=== PATIENT | male | born 1935 | race Hispanic/Latino ===

== ENCOUNTER 2016-12-11 15:21 | Inpatient (IN) | payer MEDICARE, MEDICAID, OTHER ==
[2016-12-11 15:39] VITALS: BMI 31.6
[2016-12-11 15:44] LABS: ADD MANUAL DIFF? NO
--- NOTE | 2016-12-11 15:54 | ED PDOC ---
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 Patient states for the past few weeks he has been feeling "not right." Patient was supposed to be on Eliquis for CAF however, had trouble affording it and has not been on it x2 weeks. Patient denies CP, SOB at rest, abd pain, n/v, fevers, chills, edema, rashes, headache, dizziness, confusion, palpitations. (Chichi Miller) Past Medical History - Provider Review Nursing Documentation Reviewed: Yes - Travel History Have you recently traveled outside [place] w/in the past 3 mons?: No - Infectious Disease Hx of Infectious Diseases: None - Cardiac Hx Cardiac Disorders: Yes Hx Hypertension: Yes Hx Pacemaker: No - Pulmonary Hx Respiratory Disorders: Yes Hx Lung Cancer: Yes - Neurological Hx Neurological Disorder: No Hx Paralysis: No - HEENT Hx HEENT Disorder: Yes Other/Comment: [place]-SPARKS WEARS B/L HEARING AIDS, WEARS EYEGLASSES (READING) - Renal Hx Renal Disorder: No - Endocrine/Metabolic Hx Endocrine Disorders: No - Hematological/Oncological Hx Blood Disorders: Yes Hx Blood Transfusions: No Hx Blood Transfusion Reaction: No Hx Cancer: Yes Hx Chemotherapy: Yes - Integumentary Hx Dermatological Disorder: No - Musculoskeletal/Rheumatological Hx Musculoskeletal Disorders: No - Gastrointestinal Hx Gastrointestinal Disorders: Yes (adenocarcinoma of the colon) - Genitourinary/Gynecological Hx Genitourinary Disorders: Yes Hx Prostate Problems: Yes (HX OF PROSTATE CA (RADIATION PROSTATE SEEDS)) - Psychiatric Hx Psychophysiologic Disorder: No Hx Anxiety: No Hx Emotional Abuse: No Hx Physical Abuse: No Hx Substance Use: No - Surgical History Other/Comment: L HEMICOLECTOMY (COLOSTOMY IN PLACE) - Anesthesia Hx Anesthesia Reactions: No Hx Malignant Hyperthermia: No - Suicidal Assessment Feels Threatened In Home Enviroment: No <Chichi Miller - Last Filed: 12/11/16 17:07> Family/Social History - Physician Review Nursing Documentation Reviewed: Yes Family/Social History: Hypertension, CAD/VT Smoking Status: Former Smoker Hx Alcohol Use: No Hx Substance Use: No <Chichi Miller - Last Filed: 12/11/16 17:07> Allergies/Home Meds <Price Jeffrey DO - Last Filed: 12/11/16 16:40> <Chichi Miller - Last Filed: 12/11/16 17:07> Allergies/Adverse Reactions: Allergies No Known Allergies Allergy (Verified 12/11/16 15:30) Home Medications: Home Meds Medication Instructions Recorded Confirmed Amlodipine Besylate [Norvasc] 10 mg PO DAILY 03/27/16 12/11/16 Hydrochlorothiazide 12.5 mg PO DAILY 03/27/16 12/11/16 Lisinopril [Zestril] 40 mg PO DAILY 03/27/16 12/11/16 Metoprolol Tartrate [Lopressor] 100 mg PO BID 03/27/16 12/11/16 Cefpodoxime [Vantin] 200 mg PO BID 12/07/16 12/07/16 Review of Systems - Physician Review All systems were reviewed & negative as marked: Yes - Review of Systems Constitutional: Normal, Fatigue. absent: Fevers Eyes: Normal, Vision Changes ENT: Normal Respiratory: Normal, SOB. absent: Cough, Sputum, Wheezing Cardiovascular: MULLER. absent: Chest Pain, Palpitations Gastrointestinal: Normal. absent: Abdominal Pain, Constipation, Diarrhea (does pass small amount of stool, slight loose stool 1 week ago, no diarrhea), Nausea , Vomiting, Hematochezia, Hematemesis Genitourinary Male: absent: Dysuria, Frequency Musculoskeletal: absent: Back Pain, Neck Pain Skin: absent: Rash, Laceration Neurological: absent: Headache, Dizziness Endocrine: absent: Diaphoresis, Polyuria, Polydipsia Hemo/Lymphatic: Normal. absent: Adenopathy <Chichi Miller - Last Filed: 12/11/16 17:07> Physical Exam Vital Signs Reviewed: Yes Temperature: Afebrile Blood Pressure: Normal Pulse: Tachycardic (irreg irreg) Respiratory Rate: Normal Appearance: Positive for: Well-Appearing, Non-Toxic, Comfortable Pain Distress: None Mental Status: Positive for: Alert and Oriented X 3 - Systems Exam Head: Present: Atraumatic, Normocephalic Pupils: Present: PERRL Extroacular Muscles: Present: EOMI Conjunctiva: Present: Normal. No: Icteric Mouth: Present: Moist Mucous Membranes Neck: Present: Normal Range of Motion. No: Meningeal Signs, JVD Respiratory/Chest: Present: Decreased Breath Sounds. No: Respiratory Distress, Accessory Muscle Use Cardiovascular: Present: Irregular Rhythm, Tachycardic Abdomen: Present: Normal Bowel Sounds, Other (LLQ colostomy, stoma clean, no erythema). No: Tenderness, Distention, Peritoneal Signs Upper Extremity: Present: Normal Inspection. No: Cyanosis, Edema Lower Extremity: Present: Normal Inspection. No: Edema, CALF TENDERNESS Neurological: Present: GCS=15, CN II-XII Intact, Speech Normal Skin: Present: Warm, Dry, Normal Color. No: Rashes Psychiatric: Present: Alert, Oriented x 3, Normal Insight, Normal Concentration <Chichi Miller - Last Filed: 12/11/16 17:07> Vital Signs Temp Pulse Resp BP Pulse Ox 12/11/16 15:31 20 12/11/16 15:28 98.9 F 133 H 18 120/83 94 L Medical Decision Making <Price Jeffrey DO - Last Filed: 12/11/16 16:40> Re-evaluation Time: 15:53 Reassessment Condition: Re-examined, Unchanged - EKG Interpretation Interpreted by ED Physician: Yes Type: 12 lead EKG Comparison: Similar to previous EKG <Chichi Miller - Last Filed: 12/11/16 17:07> ED Course and Treatment: A 81 year old male with dyspnea on exertion. Patient notes lethargy and a decrease in appetite. In agreement with resident note, which includes further HPI details. Patient was seen and evaluated with resident, came up with plan and treatment together. (Price Jeffrey DO) 12/11/16 16:00 Dr. Coley spoke with Dr. Jeffrey regarding incoming patient, SOBx4 weeks , h/o mets colon CA. 12/11/16 16:07 81 yo M w h/o metastatic colon CA, CAF, PAD presents with 4 week h/o lethargy, MULLER. Labs, CXR, EKG. Patient found to be in afib RVR on EKG in ER. Given 20mg IV Cardizem. 12/11/16 16:19 HR still 120s, will give another 20 mg IV Cardizem. If does not break a fib, will start cardizem drip. 12/11/16 16:51 HR still in 120s, will start Cardizem drip. Dr. Ekaterina Martinez, PMD, paged for admission. (Chichi Miller) - Lab Interpretations Lab Results: 12/11/16 15:30 12/11/16 15:30 Lab Results 12/11/16 15:30: Sodium 131 L, Potassium 4.1, Chloride 95 L, Carbon Dioxide 25, Anion Gap 15, BUN 16, Creatinine 0.8, Est GFR ( Amer) > 60, Est GFR (Non- Af Amer) > 60, Random Glucose 127 H, Calcium 8.7, Magnesium 1.7, Total Bilirubin 3.1 H, AST 140 H, ALT 40, Alkaline Phosphatase 582 H, Lactate Dehydrogenase 1732 H, Total Creatine Kinase 139, Troponin I 0.02, NT-Pro-B Natriuret Pep 3870 H, Total Protein 6.6, Albumin 3.0, Globulin 3.6, Albumin/ Globulin Ratio 0.8 L 12/11/16 15:30: WBC 21.0 H D, RBC 4.65, Hgb 11.8 L, Hct 36.2 L, MCV 77.8 L, MCH 25.4, MCHC 32.6, RDW 18.9 H, Plt Count 556 H, MPV 9.6, Gran % 70.6 H, Lymph % ( Auto) 15.7 L, Morrill % (Auto) 13.5 H, Eos % (Auto) 0.0 L, Baso % (Auto) 0.2, Gran # 14.84 H, Lymph # 3.3, Morrill # 2.8 H, Eos # 0.0, Baso # 0.04 - RAD Interpretation Radiology Orders: 12/11/16 15:32 CHEST PORTABLE [RAD] Stat - EKG Interpretation EKG Interpretation (Text): 12/11/16 17:06 A fib RVR Rate 151bpm, non specific ST/T wave changes (Chichi Miller) - Medication Orders Current Medication Orders: Enoxaparin Sodium (Lovenox) 40 mg SC DAILY KRIS PRN Reason: Protocol diltiaZEM IVPB 100mg in NS (Cardizem 100mg In Ns) 100 mls @ 5 mls/hr IV .Q20H PRN; Protocol; 5 MG/HR PRN Reason: TITRATE PER MD ORDER Discontinued Medications Diltiazem HCl (Cardizem) 20 mg IVP STAT STA Stop: 12/11/16 15:35 Last Admin: 12/11/16 15:42 Dose: 20 mg Diltiazem HCl (Cardizem) 20 mg IVP STAT STA Stop: 12/11/16 16:16 Last Admin: 12/11/16 16:23 Dose: 20 mg Furosemide (Lasix) 40 mg IVP STAT STA Stop: 12/11/16 16:55 - PA / AWNING FRAME MAKER / Resident Statement HUDSON has reviewed & agrees with the documentation as recorded. / has examined the patient and agrees with the treatment plan. - Scribe Statement The provider has reviewed the documentation as recorded by the Scribe <Price Jeffrey DO - Last Filed: 12/11/16 16:40> - PA / AWNING FRAME MAKER / Resident Statement HUDSON has reviewed & agrees with the documentation as recorded. HUDSON has examined the patient and agrees with the treatment plan. <Chichi Miller - Last Filed: 12/11/16 17:07> - Scribe Statement Katya Patel Provider Scribe Attestation: All medical record entries made by the Scribe were at my direction and personally dictated by me. I have reviewed the chart and agree that the record accurately reflects my personal performance of the history, physical exam, medical decision making, and the department course for this patient. I have also personally directed, reviewed, and agree with the discharge instructions and disposition. (Price Jeffrey DO) Disposition/Present on Arrival <Price Jeffrey DO - Last Filed: 12/11/16 16:40> - Present on Arrival Any Indicators Present on Arrival: No History of DVT/PE: No History of Uncontrolled Diabetes: No Urinary Catheter: No History of Decub. Ulcer: No History Surgical Site Infection Following: None - Disposition Have Diagnosis and Disposition been Completed?: Yes Disposition Time: 16:54 Patient Plan: Admission <Chichi Miller - Last Filed: 12/11/16 17:07> - Disposition Diagnosis: Atrial fibrillation with RVR, Pleural effusion Disposition: HOSPITALIZED Condition: FAIR Referrals: Noemi MACHUCA,Ghanshyam Prado MD [Primary Care Provider] - Follow up with primary
[2016-12-11 16:07] LABS: ALB/GLOB RATIO 0.8 (1.1-1.8); ALKALINE PHOSPHATASE 582 U/L (38-133); ALT/SGPT 40 U/L (7-56); AST/SGOT 140 U/L (15-59); BILIRUBIN,TOTAL 3.1 mg/dL (0.2-1.3); BLOOD UREA NITROGEN 16 mg/dL (7-21); CALCIUM 8.7 mg/dL (8.4-10.5); CARBON DIOXIDE 25 mmol/L (21-33); CHLORIDE 95 mmol/L (98-107); GFR AFRICAN-AMERICAN > 60; GLUCOSE,RANDOM 127 mg/dL (70-110); MAGNESIUM 1.7 mg/dL (1.7-2.2); POTASSIUM 4.1 mmol/L (3.6-5.0); SODIUM 131 mmol/L (132-148); TOTAL PROTEIN 6.6 g/dL (5.8-8.3)
[2016-12-11 16:18] LABS: TROPONIN I 0.02 ng/mL
[2016-12-11 16:36] LABS: BASO # 0.04 K/mm3 (0.0-2.0); BASO % 0.2 % (0.0-3.0); GRAN # 14.84 (1.4-6.5); GRAN % 70.6 % (50.0-68.0); HEMATOCRIT 36.2 % (42.0-52.0); LYMPH # 3.3 (1.2-3.4); LYMPH % 15.7 % (22.0-35.0); MEAN CELL VOLUME 77.8 fL (80.0-105.0); MEAN CORPUSCULAR HEMOGLOBIN 25.4 pg (25.0-35.0); MEAN CORPUSCULAR HGB CONC 32.6 g/dl (31.0-37.0); MEAN PLATELET VOLUME 9.6 fl (7.0-11.0); MONO # 2.8 (0.1-0.6); MONO % 13.5 % (1.0-6.0); PLATELET COUNT 556 10^3/uL (120.0-450.0); RED CELL DISTRIBUTION WIDTH 18.9 % (11.5-14.5)
[2016-12-11] MEDS: diltiaZEM IVPB 100mg in NS 100 ML IV PRN (17:11)
--- NOTE | 2016-12-11 17:45 | CON ---
DATE: 12/11/2016 This is the patient's hospital consult. For Dr. Levin. CHIEF COMPLAINT: Shortness of breath. HISTORY OF PRESENT ILLNESS: The patient is an 81-year-old male who sees Dr. Levin for metastatic c ancer of the colon to the liver and lung, with the patient being treated in the outpatient clinic for his disease process with the patient reporting not feeling well for approximately the past 2 months with flu-like symptoms, for which he was treated with antibiotics by his primary doctor, with little effect. He reports more recently he is now getting increasing shortness of breath so that he cannot walk approximately 40 feet without having to stop due to weakness and inability to catch his breath. Upon outpatient testing in Dr. Levin's office on 12/08, a CT scan of the chest, abdomen, and pelvi s was done, which was reported as showing moderate right-sided pleural effusion with bibasilar infilt rates with the patient now reporting that the breathing has gotten worse. We will admit under his pr imary, Dr. Franklin to the hospital for treatment as indicated. It also should be noted that the pa keyona was to be on Eliquis for his atrial fibrillation; however, he was unable to afford it with the [facility] to have sent him medication gratis; however, he has not taken the medici ne for approximately 2 weeks' time and is waiting for it to come. ALLERGIES: No known allergies. MEDICATIONS: For this patient include lisinopril 40 mg once a day, hydrochlorothiazide 12.5 once a d ay, Norvasc 10 mg once a day, Lopressor 100 mg twice a day, and Eliquis, which he ran out of, with emotherapy in the outpatient clinic as per Dr. Levin's protocols. 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 Castellano. 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 Hugh Verduzco, significant for hypertension. Status post CA of the prostate. Also, decr eased hearing. FAMILY HISTORY AND SOCIAL HISTORY: The patient is a former smoker, approximately 30 years, quit in . Occasional alcohol use. He is retired. Otherwise, noncontributory. REVIEW OF SYSTEMS: Essentially negative to questioning except as above. PHYSICAL EXAMINATION: VITAL SIGNS: Temperature 99, pulse 133, respirations 20, blood pressure 120/83, with a pulse ox 94%. HEENT: Unremarkable. NECK: Supple. HEART: Tachy rate, irregular/irregular. LUNGS: Decreased breath sounds on the right, faint crackles at the bases. ABDOMEN: Positive viable colostomy. Minimally distended. Questionable ascites. EXTREMITIES: +1 edema bilaterally. NEUROLOGIC: Awake, alert, and oriented. SKIN: Otherwise, warm, dry, and clear. LABORATORY DATA: The patient's labs were done. White blood cell count of 21.0 thousand; hemoglobin 11.8; hematocrit 36.2; platelet count 556,000; with a chem metabolic panel showing a sodium of 131, c hloride of 95, T-bili of 3.1, AST of 140, alk phos of 582, LDH of 1732, B-natriuretic peptide at 3870 . DIAGNOSTIC DATA: The patient had a chest x-ray done. It is not read yet. The patient did have a CT scan of the chest, abdomen, and pelvis done on 12/08/2016. One is recommen ded to go to select visits as this was done approximately 3 days prior. Impression was that of cardi omegaly, dense coronary and valvular calcifications, small pericardial effusion, moderate right-sided pleural effusion, bibasilar infiltrates, 1.3 x 2.2 subpleural right upper lobe nodule, nodular hepat ic contour, hepatomegaly, low attenuation lesions adequately assessed, a 6.9 cm left upper pole proba ble renal cyst, 7 mm indeterminate low density nodule right adrenal gland, abdominal ascites predomin antly perihepatic and perisplenic, small pelvic ascites, left lower quadrant colostomy. The patient did have a PET-CT scan done earlier this year, 08/18/2016. The findings were that of red emonstration of pleural-based nodule at the right upper lobe, demonstrates increased FDG uptake witho ut significant interval change since previous exam findings. They may represent metastases versus l ess likely primary lung neoplasm, interval worsening of liver metastases compared with previous study , multiple mass lesions in the liver demonstrate increased FDG uptake consistent with liver mets from patient's known colon cancer. Stable, slow attenuation nodule of the right adrenal gland without in creased FDG uptake, likely represents a benign adenoma. He had a head CT done on 10/03/2016. It was read as large amount of artifact, hemorrhage not favored , no suspicious abnormality. ASSESSMENT: For this patient is that of shortness of breath, pleural effusion, basilar infiltrates, ascites, stage IV cancer of the colon, metastases to liver and lung, colostomy, severe peripheral vas cular disease, status post stenting, hypertension. PLAN: For this patient is to be admitted via the Emergency Room as per his primary doctor, with foll owup for thoracentesis/paracentesis as indicated, with further testing to be done as indicated. IV d iltiazem was given. We will ask for a consult with his outreach manager, as per his primary, Dr. Angelo carrasco, with the patient to be monitored clinically and with labs. Kt Barbour MD cc: [phone] TT: 12/11/2016 17:45:17 Confirmation # [id number] Dictation # [id number] dn
[2016-12-11 18:02] LABS: URINE BILIRUBIN SMALL (NEGATIVE); URINE BLOOD NEGATIVE (NEGATIVE); URINE GLUCOSE (UA) NEGATIVE (NEGATIVE); URINE KETONE NEGATIVE (NEGATIVE); URINE LEUKOCYTE ESTERASE NEGATIVE Leu/uL (NEGATIVE); URINE PROTEIN TRACE mg/dL (<30 mg/dL)
[2016-12-11 18:06] LABS: URINE APPEARANCE SL CLOUDY (CLEAR); URINE COLOR YELLOW (YELLOW)
[2016-12-11] MEDS ORDERED: Metoprolol 1 mg/ml Inj IVP STA (18:07)
[2016-12-11 18:51] LABS: URINE EPITHELIAL CELLS 0 - 2 /hpf (0-5); URINE RBC 0 - 2 /hpf (0-2); URINE WBC 0 - 2 /hpf (0-6)
[2016-12-11 18:52] LABS: URINE BACTERIA SMALL (NEG)
[2016-12-11] MEDS ORDERED: Piperacillin/Tazobact 3.375 gm 100 ML IVPB STA (19:35)
[2016-12-11] MEDS ORDERED: Vancomycin 1gm in NS 250ml 1 GM/250 ML BAG IVPB STA (19:35)
--- NOTE | 2016-12-11 21:46 | CON ---
DATE: 12/11/2016 SERVICE: Cardiology. REASON FOR CONSULTATION: Cardiac evaluation, new onset atrial fibrillation. BRIEF CLINICAL HISTORY: An 81-year-old male with past medical history significant for hypertension, colon cancer on chemo, found to be in afib, so patient was transferred to ER for assessment. Cardiac consult was called for atrial fibrillation. When looking back patient has a history of atrial fibri llation back to 10/03/2016. The patient denies any chest pain. History of hypertension, hyperlipidem ia, colon cancer. PAST MEDICAL HISTORY: Significant for possible atrial fibrillation, very sketchy history, history of colon cancer, history of echocardiography 05/22/2016 that showed ejection fraction 55%. No definite vegetation noted at that time, borderline prolapse of the mitral valve noted, ____ at that time was noted, but no definite vegetation noted, dated 05/22/2016. SOCIAL HISTORY: Denies smoking. Denies any history of alcohol abuse. CURRENT MEDICATIONS: The patient is taking at home metoprolol 100 mg daily, lisinopril 40, hydrochlo rothiazide 12.5, Eliquis 5 mg twice, amlodipine 10 mg daily. REVIEW OF SYSTEMS: As per HPI. EKG shows afib with rapid ventricular rate. Rest of review of syste ms is as per HPI. PHYSICAL EXAMINATION: VITAL SIGNS: Temperature afebrile, heart rate 120, blood pressure 147/99. HEENT: PERRLA. Extraocular muscles intact. NECK: Supple. No carotid bruits. No thyromegaly. CHEST: Clear to auscultation. HEART: S1, S2 regular. ABDOMEN: Soft. EXTREMITIES: Clubbing and cyanosis negative. LABORATORY DATA: Blood workup as follows: WBC 21, hemoglobin 11.8, hematocrit 36.2, platelet count 556. Sodium 131, potassium 4.0, chloride 95, carbon dioxide 25, ____ of 15, creatinine 0.8. BNP 387 0. EKG shows atrial fibrillation, when looking back previous EKG in September the patient was in afib , dated 10/03/2016. Prior to that, the patient is in normal sinus. So possibly afib since September r ight bundle branch block, colon cancer, preserved LV function, now afib with rapid ventricular rate. RECOMMENDATION: Start Cardizem. Will start beta madhu, start Eliquis. Further recommendation per hospital course. We will follow with you. Thank you, Dr. Franklin, for providing the opportunity in taking care of the patient. Constantine Red MD cc: [phone] TT: 12/11/2016 21:45:59 Confirmation # [id number] Dictation # [id number] jn
[2016-12-11] MEDS ORDERED: Pneumococcal 23-Valent Vaccine IM ONE (22:07)
--- NOTE | 2016-12-11 22:13 | CON ---
DATE: 12/11/2016 The patient is seen in room 270, bed 1. CHIEF COMPLAINT: Weakness times several days. HISTORY OF PRESENT ILLNESS: This is an 81-year-old male with history of colon cancer with liver and lung metastases, hypertension, history of prostate cancer. In 05/2016, the patient had sensitive Sta ph aureus bacteremia, which was contributed secondary to a Port-A-Cath which was taken out. He also has peripheral vascular disease. He was also discovered to have syphilis which was treated and hard of hearing and with a hearing aid. On this admission, now admitted with the diagnosis of weakness. The patient had been coughing worse than usual and he has had low grade fevers and occasional chills. No chest pain. There is mild cough, nonproductive. No abdominal pain, diarrhea or constipation. No bright red blood per rectum. No dysuria or frequency. PAST MEDICAL HISTORY: Significant for colon cancer with liver and lung metastases, hypertension, pro state cancer, sensitive Staph aureus bacteremia secondary to Port-A-Cath, syphilis and peripheral vas cular disease. PAST SURGICAL HISTORY: Significant for a Port-A-Cath removal and a colostomy which he still has. ALLERGIES: The patient has no known allergies. MEDICATIONS AT HOME: Include the patient to be on Eliquis, Lopressor, Zestril and hydrochlorothiazid e. PHYSICAL EXAMINATION: GENERAL: The patient is in bed, answering questions appropriately. VITAL SIGNS: Temperature of 98, heart rate of 114, respiratory rate of 20, blood pressure is 130/80. HEENT: Unremarkable. NECK: Supple. LUNGS: Have decreased breath sounds. HEART: Normal S1, S2. ABDOMEN: Soft, nontender. LABORATORY EXAMINATION: Reveals a white count of 21,000, hemoglobin 11, platelets of 556 and 70% gra nulocytosis, 15% lymphocytosis, 13% monocytosis. Chemistries reveal that the patient has a BUN of 16 , creatinine of 0.8 and AST of 140, ALT of 45, alk phos is 582. LDH of 1732. BNP of 3870. Procalci tonin is 2.09. Sodium is 131. Negative urinalysis. Microbiology is reviewed from the past. He has had sensitive Staph aureus bacteremia in the past and chest x-ray results are not available. ASSESSMENT AND PLAN: This is an 81-year-old male with colon cancer, liver and lung metastases, hyper tension, history of sensitive Staphylococcus aureus bacteremia secondary to Port-A-Cath, syphilis, pe ripheral vascular disease, and Port-A-Cath removal and colostomy, who is now admitted with weakness, white count of 21,000 and heart rate of 114. 1. Sepsis with probable right lower lobe healthcare-associated probable Gram-positive cocci versus G noel-negative renato with pneumonia, with an elevated procalcitonin in a patient with end-stage colon can cer with liver and lung metastases. We will treat the patient with meropenem and doxycycline pending blood culture, urine culture and sputum culture. We will also order an ultrasound of the lower extr emities and D-dimer, and will make further recommendations upon availability of initial results. We will follow closely with you. Bin Castellano MD cc: [phone] TT: 12/11/2016 22:13:25 Confirmation # [id number] Dictation # [id number] mn
[2016-12-11] MEDS: Meropenem 1g/NS 100mL IVPB 1 GM/100 ML PIGGYBACK IVPB SCH (22:16)
[2016-12-11 23:21] LABS: ARTERIAL BLOOD GAS HCO3 23.7 mmol/L (21-28); ARTERIAL BLOOD GAS O2 CAPACITY 15.1 mL/dl (16-24); ARTERIAL BLOOD GAS PH 7.52 (7.35-7.45); ARTERIAL BLOOD HGB O2 SAT 89.7 % (95.0-98.0); CARBOXYHEMOGLOBIN 2.7 % (0.5-1.5); HHB 6.8 % (0-5); METHEMOGLOBIN 0.8 % (0.0-3.0)
--- NOTE | 2016-12-12 00:42 | CP.PCM.PN ---
Subjective - Date & Time of Evaluation Date of Evaluation: 12/11/16 Time of Evaluation: 21:00 - Subjective Subjective: called by nurse prt has afib with rapid vent rate. pt also has elevated wbc . and has been seen by dr kay and pt has received lopressor and is on cardiazem drip at 5 mg . pt denies complaints but apears sob..pt has hx of colon ca and liver and lung mets. Objective - Vital Signs/Intake and Output Vital Signs (last 24 hours): Temp Pulse Resp BP Pulse Ox 98.9 F 130 H 20 158/67 H 95 12/11/16 21:48 12/11/16 21:48 12/11/16 21:48 12/11/16 21:48 12/11/16 19:20 - Medications Medications: Current Medications Apixaban (Eliquis) 5 mg PO BID KRIS PRN Reason: Protocol Doxycycline Hyclate (Doryx) 100 mg PO Q12 KRIS PRN Reason: Protocol Stop: 12/25/16 22:01 Last Admin: 12/11/16 21:44 Dose: 100 mg diltiaZEM IVPB 100mg in NS (Cardizem 100mg In Ns) 100 mls @ 5 mls/hr IV .Q20H PRN; Protocol; 5 MG/HR PRN Reason: TITRATE PER MD ORDER Last Titration: 12/11/16 23:17 Dose: 10 mg/hr, 10 mls/hr Meropenem 1g/NS 100mL IVPB (Meropenem 1g/Ns 100ml Ivpb) 1 gm in 100 mls @ 100 mls/hr IVPB Q8 KRIS PRN Reason: Protocol Stop: 12/25/16 22:01 Last Admin: 12/11/16 22:16 Dose: 100 mls/hr Metoprolol Tartrate (Lopressor) 100 mg PO BID KRIS - Constitutional Appears: No Acute Distress - Head Exam Head Exam: NORMOCEPHALIC - Eye Exam Eye Exam: Normal appearance Pupil Exam: PERRL - ENT Exam ENT Exam: Mucous Membranes Moist - Neck Exam Neck Exam: Full ROM - Respiratory Exam Respiratory Exam: Clear to Ausculation Bilateral - Cardiovascular Exam Cardiovascular Exam: RRR, +S1, +S2 - Rectal Exam Rectal Exam: Deferred - Extremities Exam Extremities Exam: Full ROM - Neurological Exam Neurological Exam: Awake, CN II-XII Intact, Oriented x3 - Skin Skin Exam: Dry, Warm Assessment and Plan - Assessment and Plan (Free Text) Assessment: a-fib with rapid vent rate, /sepsis.. hx of colon ca with liver and lung mets. sob/rt lower lobe infitrate./pleural effusion hypoxia. Plan: will give cardiazem 10 mg bolous and increase the drip to 10 mg. will get abg stat. abg shows respiratory alkalosis and hypoxia. pt was placed on 100%o2 lasix 40mg x1 and ct angio done.
[2016-12-12] MEDS ORDERED: Iodixanol 320 MG/ML 100 ML BOTTLE IV ONE (01:48)
[2016-12-12] MEDS ORDERED: Metoprolol 1 mg/ml Inj IVP STA (03:23)
[2016-12-12] MEDS: diltiaZEM IVPB 100mg in NS 100 ML IV PRN (03:34)
--- NOTE | 2016-12-12 03:53 | CT ---
EXAM: CT Angiography Chest With Intravenous Contrast CLINICAL HISTORY: 81 years old, male; Signs and symptoms; Shortness of breath; Additional info: SOB /hypoxia TECHNIQUE: Axial computed tomographic angiography images of the chest with intravenous contrast using pulmonary embolism protocol. This CT exam was performed using one or more of the following dose reduction techniques: automated exposure control, adjustment of the mA and/or kV according to patient size, and/or use of iterative reconstruction technique. MIP reconstructed images were created and reviewed. Coronal and sagittal reformatted images were created and reviewed. CONTRAST: 96 mL of visi 320 administered intravenously. EXAM DATE/TIME: Exam ordered 12/12/2016 1:37 AM COMPARISON: CT - CHEST, ABDOMEN, PELVIS PO ONLY 12/08/2016 9:32:11 AM FINDINGS: Pulmonary arteries: The present study is designed for evaluation of the pulmonary arteries, unfortunately there is limitation related to dense contrast in the superior vena cava and extensive streak artifacts, c, see for example coronal series 602 image 85, coronal series 602 image 83. While there there is suspicion for a possible relatively peripheral embolus series 602 image 90, series 2 image 145, in a segmental vessel in the left lower lobe, this cannot be considered a definite finding noting the extensive artifacts present. There is no large central or saddle embolus seen. Aorta: No acute findings. No thoracic aortic aneurysm. Lungs: There is redemonstration of the 2.2 cm right upper lobe nodule which is again noted to be suspicious for lung neoplasm, with tissue correlation and/or PET CT again recommended. There are changes of centrilobular emphysema. The lungs otherwise of note for atelectatic changes at the bilateral bases, changes of centrilobular emphysema, mild thickening of the left major fissure. Pleural space: There is a moderate right pleural effusion, this is similar to the study of December 08. No pneumothorax. Heart: Cardiomegaly. Calcifications in keeping with coronary artery disease. Calcifications favored to be associated with the aortic valve leaflets. Physiologic pericardial fluid. No evidence of RV dysfunction. Mediastinum: Air in the esophagus in keeping with reflux, cannot exclude some wall thickening of the esophagus. Small hiatus hernia. Thyroid: Artifact greatly limits evaluation of the thyroid. Bones/joints: Bony structures. Degenerative spine changes. Sclerotic lesion in 6th left sided rib sagittal series 601 image 143, this has a nonaggressive appearance, could reflect prior infarction, nature of this is otherwise not clearly defined. No acute fracture. No dislocation. Soft tissues: There is gynecomastia. Lymph nodes: There are multiple mediastinal nodes, favored most do not meet size criteria for pathologic enlargement, noting some limitations related to streak artifact. Intraperitoneal space: Upper abdomen with hepatomegaly, ascites, low-attenuation right adrenal nodule, partially imaged left upper pole renal cyst as was previously demonstrated. Other findings: Comparison to previous CT dated December 08, 2016. IMPRESSION: Study is of very limited quality for pulmonary embolism. No large or central emboli. Findings which are concerning for a possible relatively small and peripheral left lower lobe embolus noting that this is not considered a definite finding, and artifact greatly limits the study. Redemonstration of findings highly suspicious for lung neoplasm in the right upper lobe with tissue and/or PET correlation recommended. Aortic valve calcification, coronary artery disease, cardiomegaly. Ascites, hepatomegaly.
[2016-12-12] MEDS: Meropenem 1g/NS 100mL IVPB 1 GM/100 ML PIGGYBACK IVPB SCH ×3 (05:36→21:23)
[2016-12-12] MEDS ORDERED: Digoxin 500 mcg/2ml (0.5 mg/2ml) Inj IVP ONE ×2 (07:31→14:00)
[2016-12-12] MEDS ORDERED: Digoxin 500 mcg/2ml (0.5 mg/2ml) Inj ONE (07:33)
[2016-12-12 07:48] LABS: ADD MANUAL DIFF? NO
[2016-12-12 07:50] LABS: BASO # 0.02 K/mm3 (0.0-2.0); BASO % 0.1 % (0.0-3.0); EOS % 0.1 % (1.5-5.0); GRAN # 15.12 (1.4-6.5); GRAN % 77.6 % (50.0-68.0); HEMATOCRIT 34.3 % (42.0-52.0); LYMPH # 2.1 (1.2-3.4); LYMPH % 10.5 % (22.0-35.0); MEAN CELL VOLUME 77.1 fL (80.0-105.0); MEAN CORPUSCULAR HEMOGLOBIN 25.2 pg (25.0-35.0); MEAN CORPUSCULAR HGB CONC 32.7 g/dl (31.0-37.0); MEAN PLATELET VOLUME 9.1 fl (7.0-11.0); MONO # 2.3 (0.1-0.6); MONO % 11.7 % (1.0-6.0); PLATELET COUNT 466 10^3/uL (120.0-450.0); RED CELL DISTRIBUTION WIDTH 18.8 % (11.5-14.5); WHITE BLOOD COUNT 19.5 10^3/ul (4.5-11.0)
[2016-12-12 08:06] LABS: ALB/GLOB RATIO 0.9 (1.1-1.8); ALKALINE PHOSPHATASE 544 U/L (38-133); ALT/SGPT 45 U/L (7-56); AST/SGOT 177 U/L (15-59); BILIRUBIN,TOTAL 3.8 mg/dL (0.2-1.3); BLOOD UREA NITROGEN 16 mg/dL (7-21); CALCIUM 8.2 mg/dL (8.4-10.5); CARBON DIOXIDE 27 mmol/L (21-33); CHLORIDE 95 mmol/L (98-107); CHOLESTEROL 255 mg/dL (130-200); GFR AFRICAN-AMERICAN > 60; GLUCOSE,RANDOM 84 mg/dL (70-110); MAGNESIUM 1.5 mg/dL (1.7-2.2); POTASSIUM 3.4 mmol/L (3.6-5.0); SODIUM 133 mmol/L (132-148); TOTAL PROTEIN 6.3 g/dL (5.8-8.3)
[2016-12-12 08:15] LABS: TROPONIN I 0.02 ng/mL
--- NOTE | 2016-12-12 08:47 | RAD ---
HISTORY: r/o infiltrate COMPARISON: 11/30/2016 FINDINGS: LUNGS: Infiltrate at the right lung base. PLEURA: No significant pleural effusion identified, no pneumothorax apparent. CARDIOVASCULAR: Normal. OSSEOUS STRUCTURES: No significant abnormalities. VISUALIZED UPPER ABDOMEN: Normal. OTHER FINDINGS: None. IMPRESSION: Right lower lobe infiltrate
[2016-12-12] MEDS: Potassium Chloride 20 mEq ER Tab PO SCH (08:57)
[2016-12-12] MEDS: Magnesium Oxide 400 mg Tab UD PO SCH (09:00)
--- NOTE | 2016-12-12 09:21 | HP ---
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 The patient states that h neo was in his usual state of health until approximately 2 weeks ago when he developed flu-like symptom s. He was treated by his PMD on an outpatient basis with a Z-FINA with minimal improvement in his sym ptoms. He then gradually developed increasing dyspnea and decreased exercise tolerance as well as co ugh productive of scant green sputum. The patient is followed closely by Dr. Levin for his underly ing metastatic adenocarcinoma of the colon and underwent a routine CT of the chest, abdomen and pelvi s on 12/08/2016, which demonstrated a right-sided pleural effusion and bibasilar infiltrates. Given t he patient's ongoing pulmonary symptoms and his clinical deterioration with failure of outpatient the rapy, the patient was advised to present to the Emergency Department for further evaluation. Upon ar rival to the ED, he was noted to be afebrile, but was tachycardic with a pulse of 133 and found to be in new onset atrial fibrillation. The patient was started on a Cardizem drip, broad spectrum IV ant ibiotics and admitted to the telemetry mosley for continued management of suspected healthcare-associat ed pneumonia, bilateral pleural effusions and new onset atrial fibrillation. This morning on examina tion, the patient states he feels improved since admission and denies any complaints. PAST MEDICAL HISTORY: As per HPI, also hyperlipidemia, tertiary syphilis, prostate cancer, periphera l vascular disease and history of Staphylococcus aureus bacteremia secondary to Port-A-Cath line seps is. PAST SURGICAL HISTORY: As per HPI. MEDICATIONS: Lisinopril 40 mg p.o. daily, hydrochlorothiazide 12.5 mg p.o. daily, Toprol-XL 100 mg p .o. daily, Norvasc 10 mg p.o. daily, Aldactone 50 mg p.o. b.i.d., Eliquis 5 mg p.o. b.i.d. ALLERGIES: No known drug allergies. FAMILY HISTORY: Significant for hypertension and bladder cancer in his father. SOCIAL HISTORY: The patient reports a former [id number] smoking history, but quit in 1973. He rep orts social alcohol use and denies illicit drug abuse. REVIEW OF SYSTEMS: A 14-point is negative except as per HPI. PHYSICAL EXAMINATION: VITAL SIGNS: Temperature 98.2, pulse 85, blood pressure 122/70, respiratory rate 20, oxygen saturati on 98% on 2 liters nasal cannula. GENERAL: Elderly man, appearing his stated age, lying in bed, in no apparent distress. HEENT: PERRL, EOMI. No scleral icterus, no conjunctival pallor. NECK: Supple with full range of motion, no JVD. LUNGS: Decreased breath sounds at the bases with bibasilar crackles and scattered rhonchi. CARDIOVASCULAR: Regular rate and rhythm. Normal S1 and S2. ABDOMEN: Normoactive bowel sounds, soft, nontender, nondistended. EXTREMITIES: No edema. NEUROLOGIC: Awake, alert and oriented x 3. No focal motor deficits. LABORATORY DATA: WBC 19.5 with 78% neutrophils, hemoglobin 11, hematocrit 34, platelets 466, MCV 77. Sodium 133, potassium 3.4, chloride 95, bicarbonate 27, BUN 16, creatinine 0.8, glucose 84. D-dime r 8.67. Magnesium 1.5. Procalcitonin 2.09. IMAGING STUDIES: CT of the chest with IV contrast demonstrates no large or central emboli, but there is concern for possible relatively small and peripheral left lower lobe embolus, which may represent artifact, and demonstration of a highly suspicious lung neoplasm in the right upper lobe. 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 intake and cough productive of green sputum. PLAN: 1. Sepsis, secondary to healthcare-associated pneumonia. Input from Dr. Castellano of infectious di sease noted and appreciated. The patient has been started on doxycycline 100 mg p.o. q. 12 hours and meropenem 1 gram IV q. 8 hours. Continue to monitor for fever and leukocytosis. Continue to await culture reports. Of note, the patient had an elevated procalcitonin of 2.09 on admission. 2. Atrial fibrillation, new onset. Dr. Red of cardiology has been consulted for further evaluation and recommendations. The patient remains on Cardizem drip and has been restarted on Lopressor 100 m g p.o. b.i.d. Continue with telemetry monitoring. We will resume Eliquis 5 mg p.o. b.i.d. 3. Bilateral pleural effusions. Etiology likely secondary to healthcare-associated pneumonia with l ikely malignant effusion as well. Dr. Hugh Verduzco of interventional radiology has been consulted for evaluation for possible therapeutic paracentesis. 4. Stage IV invasive adenocarcinoma of the colon, status post left hemicolectomy. Input from Dr. Eric casillas noted and appreciated. Continue with care as per Dr. Barbour and Dr. Levin. 5. Hypertension. Blood pressure remains controlled at present. However, the patient is noted to hartley ve resistant hypertension. We will continue to monitor hemodynamics and resume home medications as n eeded. 6. Hyperlipidemia. Continue with Lipitor 40 mg p.o. daily. 7. Left iliac occlusive disease. Continue with Eliquis 5 mg p.o. b.i.d. and Lipitor 40 mg p.o. abdirizak y. 8. Tertiary syphilis. The patient is status post treatment with penicillin on his prior admission. 9. Prophylaxis. Gastrointestinal prophylaxis not indicated as patient is eating. The patient remai ns on Eliquis for his peripheral vascular disease, thus deep venous thrombosis prophylaxis not indica greg. CODE STATUS: Full code. Ghanshyam Franklin MD cc: [phone] TT: 12/12/2016 09:21:18 en
[2016-12-12] MEDS ORDERED: Enoxaparin 40 mg Syringe SC SCH (10:00)
--- NOTE | 2016-12-12 11:14 | PN ---
DATE: 12/12/2016 REASON FOR CONSULTATION: Cardiac evaluation, new onset of atrial fibrillation with rapid ventricular rate. BRIEF CLINICAL HISTORY: This is an 81-year-old male with a past medical history significant for colo n cancer on chemo, found to be AFib with rapid ventricular rate. When the old chart reviewed, jada duran had atrial fibrillation since 10/03/2016, on Eliquis. Rate was not controlled. It was rapid. The patient had last echocardiography 05/22/2016 that showed ejection fraction 50%-55%, no definite veget ation noted. That was OWEN. The patient feels okay. Denies any chest pain, shortness of breath, any palpitation. PHYSICAL EXAMINATION: VITAL SIGNS: Temperature afebrile, heart rate 126, blood pressure 126/78. HEENT: PERRLA. Extraocular muscles intact. NECK: Supple. No carotid bruits. No thyromegaly. CHEST: Clear to auscultation. HEART: S1, S2 regular. ABDOMEN: Soft. EXTREMITIES: Clubbing, cyanosis negative. BLOOD WORKUP: WBC 19.5, hemoglobin 11. , hematocrit 34.3, platelet count 466. Chemistry shows s odium 133, potassium 3.4, chloride 95, carbon dioxide 27, anion gap of 14, BUN 16, creatinine 0.8. T roponin 0.02. Protein total 6.3, albumin 2.9, albumin/globulin ratio 0.9. Triglyceride 178, cholest miguel 255, LDL 205, HDL 15. IMPRESSION: Hyperlipidemia, mild protein-calorie malnutrition that was not present on admission, atr ial fibrillation with rapid ventricular rate, history of colon cancer with possible mets, chronic atr ial fibrillation, now atrial fibrillation with rapid ventricular rate, status post hemicolectomy with pulmonary metastasis. RECOMMENDATION: We will start p.o. verapamil, give extra dose of digoxin to control the heart rate w ith a low dose of beta madhu as well. Continue Eliquis. We will follow with you. Continue atorva statin. Thank you, Dr. Franklin, for providing us the opportunity in taking care of the patient. We will fo llow with you. The patient had OWEN in May, essentially negative for vegetation, preserved left v entricular function. Constantine Red MD cc: [id number] TT: 12/12/2016 11:13:08 Confirmation # [id number] Dictation # [id number] en
[2016-12-12 14:27] VITALS: PULSE 95
--- NOTE | 2016-12-12 17:13 | US ---
PROCEDURE: Ultrasound guided right thoracentesis. CLINICAL HISTORY: Metastatic colon carcinoma. New right pleural effusion. Shortness of breath. Needs thoracentesis. PHYSICIAN(S): Hugh Verduzco MD. TECHNIQUE: The relative risks and indications of the procedure were explained to the patient and consent obtained. The patient was placed in a sitting position on the stretcher and sonography of the right chest performed. This revealed a small to moderate rightpleural effusion. A right posterolateral intercostal approach was selected and the area prepped and draped usual sterile fashion. 1% Xylocaine was used to anesthetize the skin and soft tissues. A 7 [place] thoracentesis catheter was trocared into the right pleural cavity and 500 ccof posadas fluid aspirated. A cytology specimen was sent. IMPRESSION: 1. Ultrasound guided right thoracentesis. 500 cc of tanfluid were aspirated.
--- NOTE | 2016-12-12 17:14 | US ---
HISTORY: Leg pain and swelling. Evaluate for DVT PHYSICIAN(S): Hugh Verduzco MD. TECHNIQUE: Duplex sonography and color-flow Doppler with graded compression were used to evaluate the deep venous systems of both lower extremities. FINDINGS: The visualized deep venous systems of both lower extremities are sonographically normal and compressible. Normal wave forms and augmentation are seen. There is no sonographic evidence for deep venous thrombosis in the visualized segments of both lower extremities. IMPRESSION: No sonographic evidence for deep venous thrombosis in the visualized segments of both lower extremities.
--- NOTE | 2016-12-12 18:00 | CP.PCM.PN ---
Subjective - Date & Time of Evaluation Date of Evaluation: 12/12/16 Time of Evaluation: 12:20 - Subjective Subjective: Comfortable, not in distress, breathing a little better. No nausea or diarrhea. Afebrile overnight. Objective - Vital Signs/Intake and Output Vital Signs (last 24 hours): Temp Pulse Resp BP Pulse Ox 98.2 F 85 20 122/70 95 12/12/16 06:00 12/12/16 06:00 12/12/16 06:00 12/12/16 06:00 12/11/16 19:20 Intake and Output: 12/12/16 12/12/16 06:59 18:59 Intake Total 250 Output Total 2200 Balance -1950 - Medications Medications: Current Medications Apixaban (Eliquis) 5 mg PO BID KRIS PRN Reason: Protocol Atorvastatin Calcium (Lipitor) 40 mg PO DIN KRIS Doxycycline Hyclate (Doryx) 100 mg PO Q12 KRIS PRN Reason: Protocol Stop: 12/25/16 22:01 Last Admin: 12/11/16 21:44 Dose: 100 mg diltiaZEM IVPB 100mg in NS (Cardizem 100mg In Ns) 100 mls @ 5 mls/hr IV .Q20H PRN; Protocol; 5 MG/HR PRN Reason: TITRATE PER MD ORDER Last Admin: 12/12/16 03:34 Dose: 10 mg/hr, 10 mls/hr Meropenem 1g/NS 100mL IVPB (Meropenem 1g/Ns 100ml Ivpb) 1 gm in 100 mls @ 100 mls/hr IVPB Q8 KRIS PRN Reason: Protocol Stop: 12/25/16 22:01 Last Admin: 12/12/16 05:36 Dose: 100 mls/hr Magnesium Oxide (Mag-Ox) 400 mg PO DAILY [facility] Metoprolol Tartrate (Lopressor) 100 mg PO BID [facility] Potassium Chloride (K-Dur 20 Meq Er Tab) 20 meq PO BRK KRIS - Labs Labs: 12/12/16 07:30 12/12/16 07:30 - Constitutional Appears: Non-toxic, No Acute Distress - Head Exam Head Exam: NORMAL INSPECTION - ENT Exam ENT Exam: Mucous Membranes Moist - Neck Exam Neck Exam: absent: Lymphadenopathy, Meningismus - Respiratory Exam Respiratory Exam: Decreased Breath Sounds - Cardiovascular Exam Cardiovascular Exam: +S1, +S2 - GI/Abdominal Exam GI & Abdominal Exam: Soft. absent: Tenderness Assessment and Plan - Assessment and Plan (Free Text) Plan: Assessment sepsis secondary to right lower lobe healthcare-associated pneumonia, with associated right upper lung mass Left lower lobe pulmonary embolism history of port site infection with methicillin-sensitive Staph aureus S/P removal of the port HTN stage 4 colon cancer with mets to the liver history of FTA-ABS positive with RPR 1:2 Plan continue Merrem and Doxycycline day 2 pending final culture results; PCT is elevated at 2.09 Will monitor clinical response Overall prognosis is poor
--- NOTE | 2016-12-12 23:02 | CARD ---
APPROVED REPORT EKG Measurement Heart [id number] <Conclusion> Atrial fibrillation with rapid ventricular response Right bundle branch block T wave abnormality, consider inferior ischemia or digitalis effect Abnormal ECG
[2016-12-13] MEDS: Levalbuterol 1.25 MG/3 ML Inhal Soln UD IH SCH ×4 (01:29→20:12)
[2016-12-13] MEDS: Meropenem 1g/NS 100mL IVPB 1 GM/100 ML PIGGYBACK IVPB SCH ×3 (05:10→21:06)
[2016-12-13] MEDS: Potassium Chloride 20 mEq ER Tab PO SCH (07:38)
[2016-12-13 07:59] LABS: ADD MANUAL DIFF? NO
--- NOTE | 2016-12-13 07:59 | CON ---
DATE: 12/12/2016 REASON FOR CONSULTATION: Followup of patient with metastatic colon carcinoma with documented liver m etastasis, currently on chemotherapy, who recently was noted to have progressive abnormalities in charissa er functions. chemotherapy, he was sent for a CAT scan of the abdomen and pelvis, following wh ich he was supposed to continue his chemotherapy. The patient recently was in the office, seen with fevers and chills and had been coughing a lot, had been given oral antibiotics initially with Zithrom ax followed by Biaxin for 10 days. The patient's coughing did improve and overall started to feel be tter. Blood cultures at that time, one from the port and one from the did show that the patien t had coagulase-negative bacteria which was Staph coagulase-negative, which was sensitive to all the antibiotics including erythromycin and his antibiotics were continued after discussions with ID and r epeat cultures were drawn which were negative. PAST MEDICAL HISTORY: Significant for obstructive colonic lesion which turned out to be stage IV met astatic colon CA. Patient had primary resection with diverting colostomy and had liver metastasis, d ocumented . A PET CT showed abnormal lesions in both lung webb, consistent with metastasis, b ut . The patient, in the past, had been admitted to the hospital with fevers and chills, and a t that time had an echocardiogram done in 05/2016, which showed an ejection fraction of 50%-55%. OWEN was negative. The patient recently was documented to have atrial fibrillation with rapid ventricula r response for which he had been put on Eliquis for that particular reason and also for significant p eripheral vascular disease requiring stenting x 2 in the left lower extremity in the left common justin c artery. After the stenting, because he was re-occluding, the patient has been placed on the factor Xa inhibitor, Eliquis. The patient has run out of the anticoagulants about 2 weeks ago and had not been able to fill it because of the increased copay cost, they were waiting for insurance to help wit h copay assistance. The patient is now admitted with new onset of atrial fibrillation with rapid alfonso tricular response. PHYSICAL EXAMINATION: GENERAL: The patient is examined at bedside. He is afebrile. VITAL SIGNS: Heart rate is , blood pressure is 126/78. HEENT: Head is normocephalic, atraumatic. Conjunctivae pale. Sclerae are anicteric. Pupils are eq ually reactive to light and accommodation. Examination of the oropharynx reveals no oropharyngeal le sions. NECK: Supple with no adenopathy. No jugular venous distention noted. LUNGS: Clear to percussion and auscultation. HEART: Reveals S1 and S2 to be normal. No gallop or murmur are heard. ABDOMEN: Soft, nontender. EXTREMITIES: Reveals no cyanosis, clubbing, or edema. LABORATORY DATA: Shows a white count to be 19, hemoglobin of 11, hematocrit of 34.3, platelet count of 466,000. Sodium is 133, K is 3.5, chloride is 95, CO2 is 27, anion gap of 14, BUN of 16, creatini ne 0.8. Troponin 0.02. Total protein of 6.3 with an albumin of 2.9. ASSESSMENT NOTES AND PLAN: The patient has mild protein calorie malnutrition and a background histor y of metastatic stage IV colon CA, documented lung and liver metastases, being assessed for continuat ion of his chemotherapy and possible reversal of his colostomy to help him with his quality of life. He is now admitted with new onset of atrial fibrillation, shortness of breath, and evidence of a mod erate sized right-sided pleural effusion. The patient has been started on in addition to an ex tra dose of digoxin to control his heart rate, and the patient has had a pleural tap. Continue Eliqu is for now. Continue his atorvastatin for his hypercholesterolemia. I told the patient that we will wait things to resolve before planning our next move prior to the reversal of the colostomy. I told the patient in addition to the CAT scan of the chest, abdomen, and pelvis, would like to do a PET/CT scan before the surgery just to document that the disease has not progressed is worthwhile try ing to reverse the colostomy. The patient has not had a chance to get more chemotherapy in the form of combination of drugs such as or [id number] because of several medical issues that have interven ed in the last 4-6 months. We will reassess the treatment plan, once the heart rate is controlled, zach jin is tapped from the right side, and we reassessment of the extent of his disease. Janet Levin MD cc: [id number] TT: 12/12/2016 22:44:57 Confirmation # [id number] Dictation # [id number]
[2016-12-13 08:02] LABS: BASO # 0.01 K/mm3 (0.0-2.0); BASO % 0.1 % (0.0-3.0); EOS % 0.1 % (1.5-5.0); GRAN % 75.6 % (50.0-68.0); HEMATOCRIT 33.4 % (42.0-52.0); LYMPH % 12.1 % (22.0-35.0); MEAN CELL VOLUME 77.5 fL (80.0-105.0); MEAN CORPUSCULAR HEMOGLOBIN 25.3 pg (25.0-35.0); MEAN CORPUSCULAR HGB CONC 32.6 g/dl (31.0-37.0); MEAN PLATELET VOLUME 9.5 fl (7.0-11.0); MONO % 12.1 % (1.0-6.0); PLATELET COUNT 439 10^3/uL (120.0-450.0); RED CELL DISTRIBUTION WIDTH 18.4 % (11.5-14.5); WHITE BLOOD COUNT 16.5 10^3/ul (4.5-11.0)
[2016-12-13 08:15] LABS: ALB/GLOB RATIO 0.8 (1.1-1.8); ALKALINE PHOSPHATASE 466 U/L (38-133); ALT/SGPT 43 U/L (7-56); AST/SGOT 155 U/L (15-59); BILIRUBIN,TOTAL 3.2 mg/dL (0.2-1.3); BLOOD UREA NITROGEN 23 mg/dL (7-21); CALCIUM 8.2 mg/dL (8.4-10.5); CARBON DIOXIDE 27 mmol/L (21-33); CHLORIDE 94 mmol/L (98-107); GFR AFRICAN-AMERICAN > 60; GLUCOSE,RANDOM 83 mg/dL (70-110); POTASSIUM 3.5 mmol/L (3.6-5.0); SODIUM 130 mmol/L (132-148); TOTAL PROTEIN 5.9 g/dL (5.8-8.3)
--- NOTE | 2016-12-13 08:42 | PN ---
DATE: 12/13/2016 SUBJECTIVE: The patient is seen and examined at bedside on the telemetry mosley. No acute events over night. The patient is status post IR thoracentesis of the right pleural effusion with aspiration of 500 mL of posadas fluid. This morning, the patient states he feels well and endorses improved work of br eathing. He states overall he feels okay. Denies any complaints and is asking when he is going to b e discharged to home. OBJECTIVE: VITAL SIGNS: Temperature 98.4, pulse 103, blood pressure 129/78, respiratory rate 20, oxygen saturat ion 97% on 100% nonrebreather mask. GENERAL: Elderly man appearing his stated age, lying in bed in no apparent distress. HEENT: PERRL. EOMI. No scleral icterus. No conjunctival pallor. NECK: Supple with full range of motion. No JVD. LUNGS: Decreased breath sounds at the bases with bibasilar crackles. CARDIOVASCULAR: Regular rate and rhythm, normal S1, S2. ABDOMEN: Normoactive bowel sounds, soft, nontender, nondistended. EXTREMITIES: No edema. NEUROLOGIC: Awake, alert, and oriented x 3. No focal motor deficits. LABORATORY DATA: Morning labs are pending. 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 intake, and cough productive of gr een sputum. PLAN: 1. Sepsis secondary to healthcare-associated pneumonia. Input from Dr. Castellano and Dr. Chatman of infectious disease noted and appreciated. The patient remains afebrile and hemodynamically stable an d with negative blood cultures to date. Continue with doxycycline 100 mg p.o. q. 12 hours and merope nem 1 gram IV q. 8 hours. 2. Bilateral pleural effusions. Etiology is likely secondary to healthcare-associated pneumonia, as well as possibility of malignant effusion. Input from Dr. Hugh Verduzco of interventional radiology g reatly appreciated, and the patient is status post IR thoracentesis of the right pleural effusion. C ytology and culture have been sent and are pending. 3. Atrial fibrillation, new onset. Input from Dr. Red of cardiology greatly appreciated. The marco a ent has been weaned off Cardizem drip. Continue with atenolol 25 mg p.o. b.i.d., verapamil 40 mg p.o . t.i.d., and Eliquis 5 mg p.o. b.i.d. 4. Stage IV invasive adenocarcinoma of the colon, status post left hemicolectomy. Input from Dr. Eric casillas and Dr. Levin noted. Continue with current therapy. 5. Hypertension. Blood pressure controlled. Continue with atenolol 25 mg p.o. b.i.d. and verapamil 40 mg p.o. t.i.d. 6. Hyperlipidemia. Continue with Lipitor 40 mg p.o. daily. 7. Left iliac occlusive disease. Continue with Eliquis 5 mg p.o. b.i.d. and Lipitor 40 mg p.o. abdirizak y. 8. Tertiary syphilis. The patient is status post treatment with penicillin on his prior admission. 9. Prophylaxis. GI prophylaxis is not indicated, as the patient is eating. The patient remains on Eliquis for his peripheral vascular disease, thus DVT prophylaxis is not indicated. CODE STATUS: Full code. Ghanshyam Franklin MD cc: [phone] TT: 12/13/2016 08:41:43 Confirmation # [id number] Dictation # [id number] barrett
[2016-12-13] MEDS ORDERED: Potassium Chloride 20 mEq ER Tab PO ONE (09:24)
[2016-12-13] MEDS: Magnesium Oxide 400 mg Tab UD PO SCH (10:03)
--- NOTE | 2016-12-13 10:31 | PN ---
DATE: 12/13/2016 REASON FOR CONSULTATION AND FOLLOWUP: New onset of atrial fibrillation with rapid ventricular rate, cardiac evaluation. BRIEF CLINICAL HISTORY: An 81-year-old male with past medical history significant for colon cancer, on chemo, found to be in AFib with rapid ventricular rate, history of chronic atrial fibrillation. L ast echo OWEN was done to rule out vegetation, ejection fraction 55%. The patient is in AFib since from previous EKG. The patient started on verapamil, beta madhu, rate slowed down, off IV Cardizem. PHYSICAL EXAMINATION: VITAL SIGNS: Heart rate 102, blood pressure 129/78. HEENT: PERRLA. Extraocular muscles intact. NECK: Supple. No carotid bruits. No thyromegaly. CHEST: Clear to auscultation. HEART: S1, S2 regular. ABDOMEN: Soft. EXTREMITIES: Clubbing and cyanosis negative. LABORATORY DATA: Blood workup as follows: WBC 16.5, hemoglobin 10.9, hematocrit 33.4, platelet coun t 439. Chemistry shows sodium 130, potassium 3.5, chloride 94, carbon dioxide 27, anion gap of 13, B UN 23, creatinine 0.8. IMPRESSION: Atrial fibrillation with rapid ventricular rate, anemia, protein-calorie malnutrition wa s not present on admission, hyperlipidemia, history of atrial fibrillation, history of colon cancer w ith metastasis, status post right hemicolectomy, pulmonary mets, this shortness of breath also associ ated and secondary to metastatic underlying disease. RECOMMENDATION: We will change verapamil to long-acting from tomorrow. For now, continue verapamil 40 mg t.i.d. From tomorrow, will put 180. Continue low-dose beta-madhu atenolol. We will follow with you. Thank you, Dr. Levin, for providing the opportunity in taking care of the patient. We will follow with you. Constantine Red MD cc: [phone] TT: 12/13/2016 10:30:35 Confirmation # [id number] Dictation # [id number] chevy
--- NOTE | 2016-12-13 12:18 | RAD ---
HISTORY: rt thoracentesis COMPARISON: 12/11/2016 TECHNIQUE: Chest PA and lateral FINDINGS: LUNGS: The vague opacity at the right lung base has cleared. Prior right pleural fluid layering is inferred given the recent right ultrasound-guided thoracentesis history PLEURA: No residual significant right pleural effusion identified. Some minimal left lung base atelectasis and/or infiltrate under left basal fluid needs to be considered. Current inspiration is much less. Atelectatic changes here with or without minimal left pleural fluid is favored. No pneumothorax apparent. CARDIOVASCULAR: Cardiomegaly as before OSSEOUS STRUCTURES: No significant abnormalities. VISUALIZED UPPER ABDOMEN: Normal. OTHER FINDINGS: None. IMPRESSION: Interval right thoracentesis -no right pneumothorax. No appreciable residual right pleural effusion suggested -shallow lung volumes noted. Interval minimal increased density at the left lung base -left hemidiaphragmatic bordering here atelectatic changes are favored other considerations are as noted above. Minimal left pleural fluid here is possible. Consider follow-up chest x-ray when patient can cooperate with greater inspiration to clarified. If needed decubital imaging may be helpful
--- NOTE | 2016-12-13 17:01 | CP.PCM.PN ---
Subjective - Date & Time of Evaluation Date of Evaluation: 12/13/16 Time of Evaluation: 12:50 - Subjective Subjective: Comfortable in bed, not in distress, afebrile. Underwent ultrasound-guided thoracentesis yesterday. Objective - Vital Signs/Intake and Output Vital Signs (last 24 hours): Temp Pulse Resp BP Pulse Ox 97.8 F 91 H 22 131/97 H 97 12/13/16 12:00 12/13/16 14:13 12/13/16 12:00 12/13/16 14:13 12/13/16 06:00 Intake and Output: 12/13/16 12/13/16 06:59 18:59 Intake Total 440 720 Output Total 725 300 Balance -285 420 - Medications Medications: Current Medications Apixaban (Eliquis) 5 mg PO BID [facility] PRN Reason: Protocol Last Admin: 12/13/16 10:03 Dose: 5 mg Atenolol (Tenormin) 25 mg PO BID [facility] Last Admin: 12/13/16 10:02 Dose: 25 mg Atorvastatin Calcium (Lipitor) 40 mg PO DIN [facility] [place] Last Admin: 12/12/16 17:34 Dose: 40 mg Doxycycline Hyclate (Doryx) 100 mg PO Q12 [facility]IS PRN Reason: Protocol Stop: 12/25/16 22:01 Last Admin: 12/13/16 10:04 Dose: 100 mg Meropenem 1g/NS 100mL IVPB (Meropenem 1g/Ns 100ml Ivpb) 1 gm in 100 mls @ 100 mls/hr IVPB Q8 KRIS PRN Reason: Protocol Stop: 12/25/16 22:01 Last Admin: 12/13/16 14:15 Dose: 100 mls/hr Levalbuterol HCl (Xopenex) 1.25 mg IH P0WHTRA [facility] Last Admin: 12/13/16 13:50 Dose: 1.25 mg Magnesium Oxide (Mag-Ox) 400 mg PO DAILY [facility] Last Admin: 12/13/16 10:03 Dose: 400 mg Potassium Chloride (K-Dur 20 Meq Er Tab) 20 meq PO BRK [facility] Last Admin: 12/13/16 07:38 Dose: 20 meq Verapamil HCl (Calan Tab) 40 mg PO TID KRIS Stop: 12/13/16 23:59 Last Admin: 12/13/16 14:13 Dose: 40 mg Verapamil HCl (Calan Sr Tab) 180 mg PO DAILY KRIS - Labs Labs: 12/13/16 07:20 12/13/16 07:20 - Constitutional Appears: Non-toxic, No Acute Distress - Head Exam Head Exam: NORMAL INSPECTION - ENT Exam ENT Exam: Mucous Membranes Moist - Neck Exam Neck Exam: absent: Meningismus - Respiratory Exam Respiratory Exam: Decreased Breath Sounds - Cardiovascular Exam Cardiovascular Exam: +S1, +S2 - GI/Abdominal Exam GI & Abdominal Exam: Soft. absent: Tenderness Assessment and Plan - Assessment and Plan (Free Text) Plan: Assessment sepsis secondary to right lower lobe healthcare-associated pneumonia, with associated right upper lung mass and right pleural effusion S/P ultrasound- guided thoracentesis yesterday Left lower lobe pulmonary embolism history of port site infection with methicillin-sensitive Staph aureus S/P removal of the port HTN stage 4 colon cancer with mets to the liver history of FTA-ABS positive with RPR 1:2 Plan continue Merrem and Doxycycline day 3 to complete a 4-7 day course; cultures have been negative; PCT is elevated at 2.09 Will continue to monitor clinical response Follow up pleural fluid work up (mainly cytology) Overall prognosis is poor
--- NOTE | 2016-12-13 21:53 | PN ---
DATE: 12/13/2016 This is the patient's hospital visit on the telemetry floor. For Dr. Levin. SUBJECTIVE: The patient is an 81-year-old male seen sitting up in bed with his brother and sister-in -law at the bedside, feeling better after thoracentesis as per Dr. Hugh Verduzco. The patient also kno wn to have significant ascites as his CT scan of the chest, abdomen and pelvis were done prior to his admission and one is referred to look under select visits and find the scanning that was done on with the report read as impression: Cardiomegaly, dense coronary valvular calcification, sma ll pericardial effusion, moderate right-sided pleural effusion, bibasilar infiltrates 1.3 x 2.2 subce ntimeter subpleural right upper lobe nodule, recommend further evaluation biopsy PET CT, will follow up in 3-6 months, nodule hepatic contour, hepatomegaly, heterogeneous hepatic parenchyma suggestive o f low attenuation lesions not adequately assessed, 6.9 cm left upper pole probable renal cyst, 7 mm i ndeterminate low density nodule right adrenal gland, abdominal ascites predominantly perihepatic and perisplenic small pelvic ascites, left lower quadrant colostomy. Bilateral gynecomastia. Prostate r adiation seeds. With this, the patient is now reporting that he feels better; however, his abdomen is still distended with Eliquis recently started by Dr. Red and medicines adjusted as per Dr. Red. OBJECTIVE: PHYSICAL EXAMINATION: VITAL SIGNS: Temperature 101.6 with a repeat of 99.6, heart rate 69, blood pressure 134/71, pulse ox of 97% on a nonrebreather. HEENT: Unremarkable. NECK: Supple. HEART: Tachy rate, regular rhythm. Occasional ectopic beat. LUNGS: Minimal decreased breath sounds on the right. Occasional rhonchi. ABDOMEN: Distended, positive ascitic fluid wave. Also positive viable colostomy. EXTREMITIES: Faint +1 edema of the feet bilaterally. NEUROLOGIC: Awake and alert. SKIN: Otherwise, warm, dry and clear with a mild icteric tinge to his sclerae. LABORATORY DATA: The patient's labs were done. White blood cell count 16.5, hemoglobin 10.9, hemato crit 33.4, platelet count 439,000. Chem metabolic panel showing a potassium of 3.5, sodium of 130, c hloride of 94, BUN of 23 and creatinine 0.8. T-bili of 3.2. AST 155, alkaline phosphatase 466, LDH of 2583. TSH 1.6. Procalcitonin of 2.0. His D-dimer was positive at 8.6 two days prior. The patie nt had a chest x-ray done today; it was read as interval right thoracentesis, no right pneumothorax, no appreciable residual right pleural effusion, suggest shallowly lung volumes, interval minimally in creased density left lung apex. ASSESSMENT: Stage IV metastatic colon CA with colostomy, liver metastases, shortness of breath, atri al fibrillation, pneumonia, sepsis, hypertension, peripheral vascular disease, history of syphilis, c olostomy, ascites. PLAN: After conversation with Dr. Levin, we will ask for a consult with Dr. Yang with consideratio n for paracentesis as indicated with the patient to be monitored clinically and with labs. The progn osis for the patient is guarded. We will monitor clinically. Kt Barbour MD cc: [phone] TT: 12/13/2016 21:52:40 Confirmation # [id number] Dictation # [id number] mn
[2016-12-14] MEDS: Levalbuterol 1.25 MG/3 ML Inhal Soln UD IH SCH ×5 (02:22→21:01)
[2016-12-14] MEDS: Meropenem 1g/NS 100mL IVPB 1 GM/100 ML PIGGYBACK IVPB SCH ×3 (05:06→22:03)
--- NOTE | 2016-12-14 06:43 | CP.PCM.PN ---
Subjective - Date & Time of Evaluation Date of Evaluation: 12/14/16 Time of Evaluation: 06:43 - Subjective Subjective: Patient was seen at bedside because he complained of inability to sleep. States that he takes Tylenol PM some times. Requests something to help him fall asleep. Pertinent medical record was reviewed. This 81 year old white male was admitted progressive worsening of sob/Sepsis/ New onset of atrial fibrillation. Has PMH of HTN, HLD, Stage IV adenocarcinomal of colon with metastasis, tertiary syphillis. Objective - Vital Signs/Intake and Output Vital Signs (last 24 hours): Temp Pulse Resp BP Pulse Ox 98 F 102 H 22 120/77 100 12/14/16 05:27 12/14/16 05:27 12/14/16 05:27 12/14/16 05:27 12/14/16 05:27 Intake and Output: 12/13/16 12/14/16 18:59 06:59 Intake Total 720 900 Output Total 300 600 Balance 420 300 - Medications Medications: Current Medications Apixaban (Eliquis) 5 mg PO BID [facility] PRN Reason: Protocol Last Admin: 12/13/16 17:51 Dose: 5 mg Atenolol (Tenormin) 25 mg PO BID [facility] Last Admin: 12/13/16 17:47 Dose: 25 mg Atorvastatin Calcium (Lipitor) 40 mg PO DIN [facility] Last Admin: 12/13/16 18:44 Dose: 40 mg Doxycycline Hyclate (Doryx) 100 mg PO Q12 [facility]IS PRN Reason: Protocol Stop: 12/25/16 22:01 Last Admin: 12/13/16 21:06 Dose: 100 mg Meropenem 1g/NS 100mL IVPB (Meropenem 1g/Ns 100ml Ivpb) 1 gm in 100 mls @ 100 mls/hr IVPB Q8 [facility]IS PRN Reason: Protocol Stop: 12/25/16 22:01 Last Admin: 12/14/16 05:06 Dose: 100 mls/hr Levalbuterol HCl (Xopenex) 1.25 mg IH [id number] [facility] Last Admin: 12/14/16 02:47 Dose: 1.25 mg Magnesium Oxide (Mag-Ox) 400 mg PO DAILY [facility] Last Admin: 12/13/16 10:03 Dose: 400 mg Potassium Chloride (K-Dur 20 Meq Er Tab) 20 meq PO BRK [facility] Last Admin: 12/13/16 07:38 Dose: 20 meq Verapamil HCl (Calan Sr Tab) 180 mg PO DAILY KRIS - Labs Labs: 12/13/16 07:20 12/13/16 07:20 - Constitutional Appears: Well, No Acute Distress - Head Exam Head Exam: ATRAUMATIC, NORMAL INSPECTION, NORMOCEPHALIC - Eye Exam Eye Exam: Normal appearance - ENT Exam ENT Exam: Normal External Ear Exam - Neck Exam Neck Exam: Normal Inspection - Respiratory Exam Respiratory Exam: NORMAL BREATHING PATTERN - Cardiovascular Exam Cardiovascular Exam: absent: JVD - GI/Abdominal Exam GI & Abdominal Exam: absent: Distended - Extremities Exam Extremities Exam: Normal Inspection - Back Exam Back Exam: NORMAL INSPECTION - Neurological Exam Neurological Exam: Alert, Oriented x3 - Psychiatric Exam Psychiatric exam: Normal Affect, Normal Mood - Skin Skin Exam: Normal Color Assessment and Plan - Assessment and Plan (Free Text) Assessment: A/P:Insomnia. Adenocarcionoma colon. Atrial fibrillation. HTN. HLD. Continue present management. Thylenol 650 mg PO X1. Benadryl 50 mg PO x 1.
[2016-12-14 07:36] LABS: ADD MANUAL DIFF? NO
[2016-12-14 07:38] LABS: BASO # 0.02 K/mm3 (0.0-2.0); BASO % 0.1 % (0.0-3.0); EOS % 0.2 % (1.5-5.0); GRAN # 11.81 (1.4-6.5); GRAN % 75.2 % (50.0-68.0); LYMPH # 1.9 (1.2-3.4); LYMPH % 11.8 % (22.0-35.0); MEAN CELL VOLUME 77.6 fL (80.0-105.0); MEAN CORPUSCULAR HEMOGLOBIN 25.2 pg (25.0-35.0); MEAN CORPUSCULAR HGB CONC 32.4 g/dl (31.0-37.0); MEAN PLATELET VOLUME 9.2 fl (7.0-11.0); MONO % 12.7 % (1.0-6.0); PLATELET COUNT 397 10^3/uL (120.0-450.0); RED CELL DISTRIBUTION WIDTH 18.5 % (11.5-14.5); WHITE BLOOD COUNT 15.7 10^3/ul (4.5-11.0)
[2016-12-14 07:57] LABS: ALB/GLOB RATIO 0.8 (1.1-1.8); ALKALINE PHOSPHATASE 465 U/L (38-133); ALT/SGPT 47 U/L (7-56); AST/SGOT 163 U/L (15-59); BILIRUBIN,TOTAL 2.3 mg/dL (0.2-1.3); BLOOD UREA NITROGEN 26 mg/dL (7-21); CALCIUM 8.2 mg/dL (8.4-10.5); CARBON DIOXIDE 27 mmol/L (21-33); CHLORIDE 96 mmol/L (98-107); GFR AFRICAN-AMERICAN > 60; GLUCOSE,RANDOM 84 mg/dL (70-110); POTASSIUM 4.1 mmol/L (3.6-5.0); SODIUM 131 mmol/L (132-148); TOTAL PROTEIN 5.8 g/dL (5.8-8.3)
[2016-12-14] MEDS: Potassium Chloride 20 mEq ER Tab PO SCH (08:06)
--- NOTE | 2016-12-14 09:09 | PN ---
DATE: 12/14/2016 SUBJECTIVE: The patient is seen and examined at bedside on the telemetry mosley. No acute events over night. He remains afebrile, hemodynamically stable and with continued improvement in his respiratory status. This morning, the patient states he feels okay and is eager for discharge, but expresses un derstanding that he still has some ongoing medical treatment. Otherwise, he feels okay and offers no complaints. OBJECTIVE: VITAL SIGNS: Temperature 98, pulse 102, blood pressure 120/77, respiratory rate 22, oxygen saturatio n 99% on 100% nonrebreather mask. GENERAL: Elderly man, appearing his stated age, lying in bed, in no apparent distress. HEENT: PERRL, EOMI. No scleral icterus. No conjunctival pallor. NECK: Supple with full range of motion, no JVD. LUNGS: Decreased breath sounds at the bases with bibasilar crackles. CARDIOVASCULAR: Regular rate and rhythm. Normal S1 and S2. ABDOMEN: Normoactive bowel sounds, soft, nontender, nondistended. EXTREMITIES: No edema. NEUROLOGIC: Awake, alert and oriented x 3. No focal motor deficits. LABORATORY DATA: WBC 15.7 with 75% neutrophils, hemoglobin 10.7, hematocrit 33, platelets 397, MCV 7 7.6. Chemistry is pending. Blood cultures with no growth to date. Urine culture with no growth to date. 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 intake and cough productive of gree n sputum. PLAN: 1. Sepsis, secondary to healthcare-associated pneumonia. Input from Dr. Castellano and Dr. Chatman, i nfectious disease noted and appreciated and patient is scheduled to complete a 4-7 day course of anti microbials. He remains on doxycycline 100 mg p.o. q. 12 hours and meropenem 1 gram IV q. 8 hours. L eukocytosis is favorably trending. Cultures remain negative. 2. Bilateral pleural effusions, status post right-sided thoracentesis. Etiology is likely secondary to healthcare-associated pneumonia with possible superimposition on malignant effusion. Input from Dr. Verduzco greatly appreciated. Cytology and culture from thoracentesis are pending. 3. Atrial fibrillation, new onset. Input from Dr. Red of cardiology and greatly appreciated. Cont inue with atenolol 25 mg p.o. b.i.d. and verapamil 180 mg p.o. daily. Continue with Eliquis 5 mg p.o . b.i.d. 4. Stage IV invasive adenocarcinoma of the colon, status post left hemicolectomy. Input from Dr. Eric casillas and Dr. Levin noted and appreciated. Dr. Yang of gastroenterology has been consulted giv en patient's ascites. Continue with current therapy as per Dr. Levin. 5. Hypertension. Blood pressure controlled. Continue with current medications. 6. Hyperlipidemia. Continue with Lipitor 40 mg p.o. daily. 7. Left iliac vaso-occlusive disease. Continue with Eliquis 5 mg p.o. b.i.d. and Lipitor 40 mg p.o. daily. 8. Tertiary syphilis. The patient is status post treatment with penicillin on his prior admission. 9. Prophylaxis. Gastrointestinal prophylaxis not indicated as patient is eating. He is on Eliquis for his peripheral vascular disease. Thus, deep venous thrombosis prophylaxis not indicated. CODE STATUS: Full code. Ghanshyam Franklin MD cc: [phone] TT: 12/14/2016 09:09:11 Confirmation # [id number] Dictation # [id number] en
[2016-12-14] MEDS: Magnesium Oxide 400 mg Tab UD PO SCH (09:27)
--- NOTE | 2016-12-14 09:47 | CON ---
DATE: 12/14/2016 REQUESTING PHYSICIAN: Ghanshyam Franklin MD REASON FOR CONSULTATION: I have been asked to see this 81-year-old male with a history of stage IV c olon cancer, status post left colon resection and colostomy with known liver and lung mets, who comes to the hospital with a 2-week history of worsening dyspnea. CT scan of the chest revealed pleural e ffusion. The patient underwent ultrasound-guided thoracentesis with removal of about 500 mL of fluid . The patient states that his breathing improved after the thoracentesis. The patient was also note d to be in atrial fibrillation with rapid ventricular rate of over 130. The CT scan of the chest als o showed some ascites around the liver. He denies any abdominal pain, nausea, vomiting. PAST MEDICAL HISTORY: Notable for colon cancer with liver and lung metastasis prostate cancer, perip heral vascular disease, Port-A-Cath line sepsis, tertiary syphilis hyperlipidemia. PAST SURGICAL HISTORY: Notable for left colon resection with colostomy. SOCIAL HISTORY: The patient used to smoke 1-2 packs a day for over 30 years. He consumes alcohol on a social basis. FAMILY HISTORY: Noncontributory. 14-POINT REVIEW OF SYSTEMS: Notable for shortness of breath. PHYSICAL EXAMINATION: GENERAL: Elderly male sitting in bed, in no acute distress. VITAL SIGNS: Reveal temperature of 98, blood pressure 120/77, heart rate of 102. HEENT: Reveal sclerae to be white, conjunctivae pink. NECK: Supple. CHEST: Reveals decreased breath sounds at the bases. HEART: Reveals an irregularly irregular rate. ABDOMEN: Protuberant, soft, with a left lower quadrant colostomy producing stool. EXTREMITIES: Show no edema. LABORATORY DATA: Reveal white blood cell count 15.7, hemoglobin 10.7. Chemistries reveal sodium 131 , total bilirubin of 2.3, AST 163, ALT 47, alkaline phosphatase of 465. Blood and urine cultures are negative. IMPRESSION: An 81-year-old male with known stage IV colon cancer with lung and liver metastasis, adm itted to the hospital with shortness of breath, found to be in atrial fibrillation with rapid ventric ular rate as well as bilateral pleural effusions. The patient's shortness of breath improved with co rrection of his ventricular rate and thoracentesis. His long-term prognosis is poor. He was noted t o have some perihepatic ascites on CT scan of the chest. I do not believe that there is enough ascit es fluid to tap. RECOMMENDATIONS: Continue supportive care. His long-term prognosis is poor. Given his multiple com orbidities, I would not recommend an attempt at reversing the colostomy at this time. Harry Yang MD cc: [phone] TT: 12/14/2016 09:46:35 Confirmation # [id number] Dictation # [id number] mn
[2016-12-14] MEDS: Verapamil 180 mg ER Tab PO SCH (11:38)
--- NOTE | 2016-12-14 14:04 | PN ---
DATE: 12/14/2016 The patient seen earlier today, in no acute distress. PHYSICAL EXAMINATION: VITAL SIGNS: Temperature is 97, blood pressure is 122/70, respiratory rate of 18, a heart rate of 91 . HEENT: Unremarkable. NECK: Supple. LUNGS: Have decreased breath sounds. HEART: Normal S1, S2. ABDOMEN: Soft, nontender, no organomegaly, no rebound, no guarding. LABORATORY EXAMINATION: Reveals a white count of 15,700, hemoglobin of 10, platelets of 397. Coagul ation is noted. Chemistries reveals the BUN of 26, creatinine of 0.8 and procalcitonin is noted 2.09 . Urinalysis is noted. Microbiology is noted. Blood cultures are negative. Urine cultures are neg ative. The patient seen earlier today. ASSESSMENT AND PLAN: An 81-year-old male with sepsis secondary to right lower lobe healthcare-associ ated pneumonia with an associated right upper lung mass, pleural effusion, status post ultrasound-juaquin ded thoracentesis and with a left lower lobe pulmonary emboli in a patient with colon cancer with met s to the liver and history of syphilis. Currently on meropenem and doxycycline day #4. Would comple te 4-7 days of antibiotics. Currently, review of the medications confirms the patient to be on p.o. doxycycline and IV meropenem. Dr. Ghanshyam Franklin's note is reviewed. Will follow closely with you . Bin Castellano MD cc: [id number] TT: 12/14/2016 14:04:03 Confirmation # [id number] Dictation # [id number] en
--- NOTE | 2016-12-14 14:58 | PN ---
DATE: 12/14/2016 REASON FOR CONSULTATION AND FOLLOWUP: Chronic atrial fibrillation, now with rapid ventricular rate. BRIEF CLINICAL HISTORY: This is an 81-year-old male with past medical history significant for colon cancer and chemotherapy, found in AFib, but when you look back patient is already in AFib since 10/03. Admitted with rapid ventricular rate. The patient started Cardizem, now changed to p.o. Now the rate is well controlled. Denies any chest pain, shortness of breath, any palpitations. Feels a lot better. PHYSICAL EXAMINATION: VITAL SIGNS: Temperature afebrile, heart rate 91, blood pressure 122/70. HEENT: PERRLA. Extraocular muscles intact. NECK: Supple. No carotid bruits. No thyromegaly. CHEST: Clear to auscultation. HEART: S1, S2 regular. ABDOMEN: Soft. EXTREMITIES: Clubbing and cyanosis negative. BLOOD WORKUP: WBC 15.7, hemoglobin 10.7, hematocrit 33.0, platelet count 397. Chemistry shows sodiu m 133, potassium 4.1, chloride 96, carbon dioxide 27, anion gap of 12, BUN 26, creatinine 0.8, albumi n 2.6, total protein 5.8. IMPRESSION: Protein-calorie malnutrition, moderate, which was not present on admission; hyponatremia , anemia, leukocytosis; atrial fibrillation with rapid ventricular rate, history of chronic atrial fi brillation, on Eliquis at home; history of any colon cancer with metastasis, right hemicolectomy, pul monary metastasis; shortness of breath, multifactorial, secondary to pulmonary metastasis as well. RECOMMENDATION: Started verapamil 40 mg t.i.d. yesterday and will start today 180 mg from today. Co ntinue apixaban (Eliquis) 5 mg b.i.d. Continue atorvastatin. I have increased atenolol to 50 b.i.d. If remains stable, will discontinue telemetry tomorrow. Thank you, Dr. Levin, for providing the opportunity in taking care of this patient. The patient's last echocardiography done on 05/22/2016 showed ejection fraction 55%. No definite vegetation; that was on a OWEN done to rule out vegetation. At that time showed mild mitral regurgitation, borderline MVP, no aortic regurgitation, aortic stenosis. Thank you, Dr. Levin, for providing the opportunity in taking care of the patient. Will follow saqib michael. Constantine Red MD cc:Janet Levin MD 305 TT: 12/14/2016 14:57:47 Confirmation # [id number] Dictation # [id number] mn
--- NOTE | 2016-12-14 21:23 | PN ---
DATE: 12/14/[address] Levin. SUBJECTIVE: The patient is an 81-year-old male seen standing at the bedside. Feeling better, status post thoracentesis by Dr. Hugh Verduzco with the patient admitted for rapid atrial fibrillation, sever e shortness of breath for which thoracentesis was done with good effect. 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 With this, the patient is now noticed to have hypon atremic indices with the patient reporting having diaphoretic episodes, 2 episodes in the past 2 hour s. He is anxious to go home; however, he was recommended to continue medical care until he is discha rged as per consultants' recommendations. OBJECTIVE: PHYSICAL EXAMINATION: VITAL SIGNS: Temperature 98.2, pulse 79, respirations 19, blood pressure 129/68 with a pulse ox of 1 00%. He was on a nonrebreather now he is on nasal cannula. HEENT: Unremarkable. NECK: Supple. HEART: Regular rate, occasional ectopic beat. LUNGS: Clear on the left with decreased breath sounds on the right. Status post thoracentesis of 50 0 mL 2 days prior ABDOMEN: Distended, positive minimal ascitic fluid wave. Nontender with a viable colostomy. EXTREMITIES: Faint +1 edema. NEUROLOGIC: Awake, alert. SKIN: Otherwise, warm, dry and clear with mild icteric tinge. LABORATORY DATA: The patient's labs were done. White blood cell count of 15.7, hemoglobin 10.7, hem atocrit 33.0, platelet count of 397,000 with a chem metabolic panel showing a sodium of 131, chloride of 96, BUN of 26, creatinine of 0.8, calcium of 8.2, magnesium 1.8. T-bili of 2.3, AST of 163 with an ALT of 47, alkaline phosphatase 465. ASSESSMENT: Rapid atrial fibrillation, anticoagulation on Eliquis, history of colon cancer with meta stases, right hemicolectomy with viable colostomy, pulmonary metastases, history of anemic indices hy ponatremia, history of syphilis, hypertension, pneumonia, sepsis. PLAN: After conversation with Dr. Levin, is to continue present medical regimen as per consultants ' recommendations. His medications were changed as per Dr. Red to include verapamil, Tenormin. He continues his Eliquis. Antibiotics include doxycycline and meropenem. His respiratory status is mod estly improved at this point. The plan for this patient is to continue present medical regimen. We will monitor clinically and wit h labs. Kt Barbour MD cc: [phone] TT: 12/14/2016 21:22:34 Confirmation # [id number] Dictation # [id number] jn
[2016-12-15] MEDS: Levalbuterol 1.25 MG/3 ML Inhal Soln UD IH SCH ×4 (02:22→20:32)
[2016-12-15] MEDS: Meropenem 1g/NS 100mL IVPB 1 GM/100 ML PIGGYBACK IVPB SCH ×3 (05:34→21:42)
[2016-12-15 07:56] LABS: ADD MANUAL DIFF? NO
[2016-12-15 07:59] LABS: BASO # 0.02 K/mm3 (0.0-2.0); BASO % 0.1 % (0.0-3.0); EOS # 0.1 (0.0-0.7); EOS % 0.4 % (1.5-5.0); GRAN # 11.03 (1.4-6.5); HEMATOCRIT 34.6 % (42.0-52.0); LYMPH # 1.5 (1.2-3.4); LYMPH % 10.5 % (22.0-35.0); MEAN CELL VOLUME 77.2 fL (80.0-105.0); MEAN CORPUSCULAR HGB CONC 32.4 g/dl (31.0-37.0); MEAN PLATELET VOLUME 9.7 fl (7.0-11.0); MONO # 1.6 (0.1-0.6); PLATELET COUNT 417 10^3/uL (120.0-450.0); RED CELL DISTRIBUTION WIDTH 18.4 % (11.5-14.5); WHITE BLOOD COUNT 14.1 10^3/ul (4.5-11.0)
[2016-12-15 08:15] LABS: ALB/GLOB RATIO 0.8 (1.1-1.8); ALKALINE PHOSPHATASE 505 U/L (38-133); ALT/SGPT 46 U/L (7-56); AST/SGOT 203 U/L (15-59); BILIRUBIN,TOTAL 1.6 mg/dL (0.2-1.3); BLOOD UREA NITROGEN 32 mg/dL (7-21); CALCIUM 8.6 mg/dL (8.4-10.5); CARBON DIOXIDE 27 mmol/L (21-33); CHLORIDE 97 mmol/L (98-107); GFR AFRICAN-AMERICAN > 60; GLUCOSE,RANDOM 79 mg/dL (70-110); POTASSIUM 4.2 mmol/L (3.6-5.0); SODIUM 132 mmol/L (132-148); TOTAL PROTEIN 6.1 g/dL (5.8-8.3)
[2016-12-15] MEDS: Potassium Chloride 20 mEq ER Tab PO SCH (08:57)
[2016-12-15] MEDS: Magnesium Oxide 400 mg Tab UD PO SCH (09:00)
[2016-12-15] MEDS: Verapamil 180 mg ER Tab PO SCH (09:00)
--- NOTE | 2016-12-15 09:51 | PN ---
DATE: 12/15/2016 REASON FOR CONSULTATION AND FOLLOWUP: Chronic atrial fibrillation, admitted with rapid ventricular r ate, history of colon CA with metastasis. BRIEF CLINICAL HISTORY: This is an 81-year-old male with past medical history significant for colon cancer, on chemotherapy, atrial fibrillation since 10/03/2016, on anticoagulation, admitted with rapid rate, shortness of breath. Now, rate is well controlled. Denies any chest pain, shortness of breat h, any palpitation. PHYSICAL EXAMINATION: VITAL SIGNS: Temperature afebrile, heart rate 70, blood pressure 134/76. HEENT: PERRLA. Extraocular muscles intact. NECK: Supple. No carotid bruits. No thyromegaly. CHEST: Clear to auscultation. HEART: S1, S2 regular. ABDOMEN: Soft. EXTREMITIES: Clubbing and cyanosis negative. LABORATORY DATA: Blood workup as follows: WBC 14.9, hemoglobin 11, hematocrit 34.6, platelet count 417. Chemistry shows sodium 132, potassium 4.2, chloride 97, carbon dioxide 27, anion gap of 12, BUN 32, creatinine 0.9. Total protein .2.8. IMPRESSION: Protein-calorie malnutrition which was not present on admission, anemia, leukocytosis, a trial fibrillation with rapid ventricular rate. Now, rate is well controlled. History of chronic at rial fibrillation, history of colon cancer with metastasis, possible metastatic pleural effusion, pro tein-calorie malnutrition, colon cancer with metastasis. RECOMMENDATION: Continue Eliquis. Continue atorvastatin. Continue verapamil, changed to 180 mg fro m yesterday. Continue atenolol 50. We will discontinue telemetry. The patient had recently OWEN don e to rule out endocarditis that showed ejection fraction 55% dated 05/22/2016. Thank you, Dr. Levin, for providing us the opportunity in taking care of the patient. We will faby tor electrolytes closely and supplement as needed. Constantine Red MD cc: [id number] TT: 12/15/2016 09:50:39 Confirmation # [id number] Dictation # [id number] tn
--- NOTE | 2016-12-15 10:06 | PN ---
DATE: 12/15/2016 SUBJECTIVE: The patient seen and examined at bedside on the telemetry mosley. No acute events overnight. He remains afebrile and hemodynamically stable and with improved/stable respiratory status. This morning, the patient states he feels well and wants to go home. Otherwise, he offers no complaints. OBJECTIVE: VITAL SIGNS: Temperature 98, pulse 72, blood pressure 134/76, respiratory rate 20, oxygen saturation 94% on 2 L nasal cannula. GENERAL: Elderly man appearing his stated age, lying in bed in no apparent distress. HEENT: PERRL. EOMI. No scleral icterus. No conjunctival pallor. NECK: Supple with full range of motion, no JVD. LUNGS: Decreased breath sounds to the bases with bibasilar crackles. CARDIOVASCULAR: Regular rate and rhythm. Normal S1 and S2. ABDOMEN: Normoactive bowel sounds, soft, nontender, nondistended. EXTREMITIES: No edema. NEUROLOGIC: Awake, alert and oriented x 3. No focal motor deficits. LABORATORY DATA: WBC 14.1 with 78% neutrophils, hemoglobin 11, hematocrit 35, platelets 417, MCV 77. Chemistry reviewed and largely unremarkable. Blood cultures with no growth to date. Urine culture with no growth to date. 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 intake and cough productive of green sputum. PLAN: 1. Sepsis secondary to healthcare-associated pneumonia. Input from Dr. Castellano and Dr. Chatman of infectious disease noted and the patient is scheduled to complete a 4-7 day course of antimicrobials. He remains on doxycycline 100 mg p.o. q. 12 hours and meropenem 1 gram IV q. 8 hours. Today is day #5 of antibiotics. Cultures remain negative. 2. Bilateral pleural effusion, status post right-sided thoracentesis. Etiology likely secondary to healthcare-associated pneumonia with possible superimposition on malignant effusion. Input from Dr. Verduzco greatly appreciated. Cytology and culture from thoracentesis are pending. 3. Atrial fibrillation, new onset. Input from Dr. Red of cardiology noted and appreciated. Continue with atenolol 50 mg p.o. b.i.d. and verapamil 180 mg p.o. daily. Continue with Eliquis 5 mg p.o. b.i.d. 4. Stage IV invasive adenocarcinoma of the colon, status post left hemicolectomy. Input from Dr. Barbour and Dr. Levin noted. Input from Dr. Yang of gastroenterology also noted. No acute intervention indicated. Continue with present management. 5. Hypertension. Blood pressure controlled. Continue with current medications. 6. Hyperlipidemia. Continue with Lipitor 40 mg p.o. daily. 7. Left iliac vasoocclusive disease. Continue with Eliquis 5 mg p.o. b.i.d. and Lipitor 40 mg p.o. daily. 8. Tertiary syphilis. The patient is status post treatment with penicillin on his previous admission. 9. Prophylaxis. GI prophylaxis not indicated as patient is eating. He remains on Eliquis for his peripheral vascular disease, thus DVT prophylaxis not indicated. CODE STATUS: Full code. Ghanshyam Franklin MD cc: [phone] TT: 12/15/2016 10:05:51 Confirmation # [id number] Dictation # [id number] tn MTDD
--- NOTE | 2016-12-15 10:57 | PN ---
DATE: 12/15/2016 The patient is in bed, in no acute distress, nontoxic. PHYSICAL EXAMINATION: VITAL SIGNS: Temperature 98, blood pressure is 130/70, respiratory rate 16. HEENT: Unremarkable. NECK: Supple. LUNGS: Have decreased breath sounds. HEART: Normal S1, S2. ABDOMEN: Soft. Nontender. LABORATORY DATA: Reveals a white count of 14,100, hemoglobin of 11 and platelets of 417. BUN of 32, creatinine 0.9. Blood culture is negative. Urine culture is negative. ASSESSMENT AND PLAN: This is an 81-year-old with sepsis secondary to right lower lobe healthcare-ass ociated pneumonia, right upper lung mass, right pleural effusion, status post ultrasound-guided thora centesis, left lower lobe pulmonary emboli, patient with history of colon cancer with metastases to l iver and a history of syphilis, treated. Currently on meropenem and doxycycline day #5. December complet e 4-7 days of antibiotics. Bin Castellano MD cc: [phone] TT: 12/15/2016 09:22:09 Confirmation # [id number] Dictation # [id number] md 12/15/2016 08:59:59
--- NOTE | 2016-12-15 14:03 | PN ---
DATE: 12/15/2016 SUBJECTIVE: The patient is lying in bed, comfortable. He denies any abdominal pain, nausea and vomi ting. PHYSICAL EXAMINATION: VITAL SIGNS: Reveal temperature of 98.5, blood pressure 156/85, heart rate of 112. HEENT: Reveals sclerae to be white, conjunctivae pink. NECK: Supple. CHEST: Reveals decreased breath sounds at the bases. HEART: Reveals an irregularly irregular rate. ABDOMEN: Obese, soft. He has a left lower quadrant colostomy. EXTREMITIES: Show no edema. LABORATORY DATA: Reveal white blood cell count 14.1, hemoglobin 11.2. Chemistries reveal AST 203, A LT 46, alkaline phosphatase 505, total bilirubin of 1.6. IMPRESSION: An 81-year-old male admitted to the hospital with weakness, increasing dyspnea and cough , found to have a large pleural effusion with a history of stage IV colon cancer with liver and lung metastasis, atrial fibrillation, peripheral vascular disease, tertiary syphilis, hypertension. The p atient is status post large volume paracentesis. RECOMMENDATIONS: Continue conservative treatment. Would not proceed with colostomy reversal at this time given his multiple comorbidities including sepsis and new onset atrial fibrillation. Harry Yang MD cc: [id number] TT: 12/15/2016 14:03:32 Confirmation # [id number] Dictation # [id number] mn
--- NOTE | 2016-12-15 22:27 | CON ---
DATE: 12/15/2016 The patient is in room 270, bed 1. REASON FOR CONSULTATION: The patient has metastatic stage IV colon carcinoma with documented lung an d liver metastases. H as a colostomy in the left side and is on active ongoing chemotherapy. The sukh rand was admitted to [facility] with what appears to be sepsis and healthcare-associated pneumonia, right pleural effusion, and is slowly recovering on oral antibiotics. Also had atrial fi brillation, which has been treated appropriately by cardiology and overall the patient has been feeli ng better. SUBJECTIVE: The patient is examined at bedside on the telemetry unit. No acute events overnight not ed. The patient remains hemodynamically stable and feels that his coughing and wheezing are improved . The patient feels better and wants to go home; otherwise, offers no new complaints. Colostomy is functioning. PHYSICAL EXAMINATION: VITAL SIGNS: Stable. T-max is 98.4, pulse is 72, blood pressure is 134/76, respirations 20, O2 sat is 94% on 2 L of nasal cannula. HEENT: Head is normocephalic, atraumatic. Conjunctivae pale. Sclerae are anicteric. The patient i s hard of hearing. Examination of the oropharynx reveals no oropharyngeal lesions. NECK: Supple. There is no adenopathy. LUNGS: Reveals decreased breath sounds at the bases with bibasilar crackles. HEART: Reveals S1 and S2 to be normal. No gallop is heard. ABDOMEN: Soft, nontender. The patient has a colostomy in the left lower quadrant, which is function al. EXTREMITIES: Reveals no ankle edema. The patient has left lower extremity pain, which he was experi encing, appears to be improved. NEUROLOGIC: functions are normal. No focal deficits are noted. LABORATORY DATA: The patient's labs were reviewed and reveal the following: White count is 14.1, he moglobin 11.2, hematocrit 34, platelet count 417,000; it has come down from 21,000, which is an impro vement. Chemistries revealed also improvement of the LFTs. Total bilirubin is down to 1.6. AST is 203, ALT is 46, alkaline phosphatase is 505. The patient has documented liver and lung metastases, b ased on biopsy from his primary tumor in the colon, which was resected and the patient has a divertin g colostomy. MEDICATIONS: The patient's medications were reviewed as well. He is on verapamil 180 mg daily, doxy cycline 100 mg q.12 hours, Eliquis 5 mg b.i.d., K-Dur 20 mEq daily, Lipitor 40 mg daily, mag oxide 40 0 daily. He is on meropenem 1 gram IV q.8 hours. He is on atenolol 50 mg b.i.d., and Tylenol as nee ded p.r.n. for headaches or pain. ASSESSMENT NOTES AND PLAN: The patient's clinical condition is improved since the tapping of the flu id on the right side. He is on day 5 of day 7 antibiotics at this time. I discussed in detail with the patient our plan is to complete the antibiotics and then make further decisions regarding his man agement. Unfortunately, the patient is very much interested in reversal of his colostomy, but what m itigates that he still has metastatic cancer and he has missed several cycles of chemotherapy and I a m concerned his disease could be progressing. I will discuss again with the patient and his brother regarding further treatment plans. Despite his interest in reversing the colostomy, my feeling is th at that will be too much of a burden on him medically speaking for him to tolerate even reversal of c olostomy. At this time in his management I would just recommend continuation of his palliative thera py once the antibiotics are completed. The patient obviously needs to continue his Eliquis. Unfortu nately he had stopped taking the Eliquis about a week prior to admission because he ran out of it and he copays would not allow him to buy any additional Eliquis. We are working on that to get him copa y assistance as an outpatient. post exam instructions have been given to the patient. Will di scuss the case with Dr. Ghanshyam Franklin as well. Janet Levin MD cc: [phone] TT: 12/15/2016 22:27:04 Confirmation # [id number] Dictation # [id number] blossom
--- NOTE | 2016-12-16 00:58 | CP.PCM.PN ---
Subjective - Date & Time of Evaluation Date of Evaluation: 12/16/16 Time of Evaluation: 00:58 - Subjective Subjective: S:Patient was seen at bedside because he asked for a sleeping medicine. Has no other complaints now. Denies cp,sob,nausea, headache, sweating. Pertinent medical record was reviewed. O: Last Vital Signs 3 Temp 97.8 F 12/15/16 16:00 Pulse 76 12/15/16 18:06 Resp 20 12/15/16 16:00 BP 122/70 12/15/16 18:06 Pulse Ox 94 L 12/15/16 16:00 awake , alert, not in distress. LUNGS:Normal breathing pattern. NEURO:Speech normal. A:Adjustment insomnia. P:Benadryl 50 mg PO x 1. Objective - Vital Signs/Intake and Output Vital Signs (last 24 hours): Temp Pulse Resp BP Pulse Ox 97.8 F 76 20 122/70 94 L 12/15/16 16:00 12/15/16 18:06 12/15/16 16:00 12/15/16 18:06 12/15/16 16:00 Intake and Output: 12/15/16 12/16/16 18:59 06:59 Intake Total 540 Output Total 400 Balance 140 - Medications Medications: Current Medications Acetaminophen (Tylenol 325mg Tab) 650 mg PO Q4H PRN PRN Reason: Headache Last Admin: 12/15/16 12:36 Dose: 650 mg Apixaban (Eliquis) 5 mg PO BID [facility], [facility]1983 PRN Reason: Protocol Last Admin: 12/15/16 18:06 Dose: 5 mg Atenolol (Tenormin) 50 mg PO BID [facility]1983 Last Admin: 12/15/16 18:06 Dose: 50 mg Atorvastatin Calcium (Lipitor) 40 mg PO DIN [facility], [facility]1983 Last Admin: 12/15/16 18:06 Dose: 40 mg Doxycycline Hyclate (Doryx) 100 mg PO Q12 [facility]1983 PRN Reason: Protocol Stop: 12/25/16 22:01 Last Admin: 12/15/16 21:42 Dose: 100 mg Meropenem 1g/NS 100mL IVPB (Meropenem 1g/Ns 100ml Ivpb) 1 gm in 100 mls @ 100 mls/hr IVPB Q8 [facility]1983 PRN Reason: Protocol Stop: 12/25/16 22:01 Last Admin: 12/15/16 21:42 Dose: 100 mls/hr Levalbuterol HCl (Xopenex) 1.25 mg IH [id number] [facility] 1928[facility]1983 Last Admin: 12/15/16 20:32 Dose: 1.25 mg Magnesium Oxide (Mag-Ox) 400 mg PO DAILY [facility] Last Admin: 12/15/16 09:00 Dose: 400 mg Potassium Chloride (K-Dur 20 Meq Er Tab) 20 meq PO BRK KRIS Last Admin: 12/15/16 08:57 Dose: 20 meq Verapamil HCl (Calan Sr Tab) 180 mg PO DAILY [facility] Last Admin: 12/15/16 09:00 Dose: 180 mg - Labs Labs: 12/15/16 06:30 12/15/16 06:30
[2016-12-16] MEDS: Levalbuterol 1.25 MG/3 ML Inhal Soln UD IH SCH ×4 (01:19→20:33)
[2016-12-16] MEDS: Meropenem 1g/NS 100mL IVPB 1 GM/100 ML PIGGYBACK IVPB SCH ×3 (05:20→21:44)
[2016-12-16 07:51] LABS: ADD MANUAL DIFF? NO
[2016-12-16 08:08] LABS: BASO # 0.02 K/mm3 (0.0-2.0); BASO % 0.1 % (0.0-3.0); EOS % 0.3 % (1.5-5.0); GRAN # 11.44 (1.4-6.5); GRAN % 73.6 % (50.0-68.0); HEMATOCRIT 32.5 % (42.0-52.0); LYMPH # 2.2 (1.2-3.4); LYMPH % 13.8 % (22.0-35.0); MEAN CELL VOLUME 76.5 fL (80.0-105.0); MEAN CORPUSCULAR HEMOGLOBIN 25.4 pg (25.0-35.0); MEAN CORPUSCULAR HGB CONC 33.2 g/dl (31.0-37.0); MEAN PLATELET VOLUME 9.7 fl (7.0-11.0); MONO # 1.9 (0.1-0.6); MONO % 12.2 % (1.0-6.0); PLATELET COUNT 427 10^3/uL (120.0-450.0); RED CELL DISTRIBUTION WIDTH 18.3 % (11.5-14.5); WHITE BLOOD COUNT 15.6 10^3/ul (4.5-11.0)
[2016-12-16 08:15] LABS: ALB/GLOB RATIO 0.8 (1.1-1.8); ALKALINE PHOSPHATASE 462 U/L (38-133); ALT/SGPT 42 U/L (7-56); AST/SGOT 158 U/L (15-59); BILIRUBIN,TOTAL 1.6 mg/dL (0.2-1.3); BLOOD UREA NITROGEN 30 mg/dL (7-21); CALCIUM 8.6 mg/dL (8.4-10.5); CARBON DIOXIDE 26 mmol/L (21-33); CHLORIDE 97 mmol/L (98-107); GFR AFRICAN-AMERICAN > 60; GLUCOSE,RANDOM 67 mg/dL (70-110); POTASSIUM 4.9 mmol/L (3.6-5.0); SODIUM 132 mmol/L (132-148); TOTAL PROTEIN 5.7 g/dL (5.8-8.3)
--- NOTE | 2016-12-16 08:48 | PN ---
DATE: 12/16/2016 SUBJECTIVE: The patient seen and examined at bedside on the general medical mosley. No acute events o vernight. He remains afebrile and hemodynamically stable. This morning, he states he feels well and reports significant improvement in his respiratory status and is looking forward to going home. Oth erwise, he denies any specific complaints. OBJECTIVE: VITAL SIGNS: Temperature 98.4, pulse 99, blood pressure 111/58, respiratory rate 20, oxygen saturati on 98% on room air. GENERAL: No apparent distress. HEENT: PERRL, EOMI. No scleral icterus. No conjunctival pallor. NECK: Supple, full range of motion, no JVD. LUNGS: Decreased breath sounds at the bases, otherwise clear. CARDIOVASCULAR: Irregularly irregular. Normal S1 and S2. ABDOMEN: Normoactive bowel sounds, soft, nontender, nondistended. Viable colostomy site which appea rs clean, dry and intact. EXTREMITIES: No edema. NEUROLOGIC: Awake, alert and oriented x 3. No focal motor deficits. LABORATORY DATA: Morning labs are pending. Blood cultures with no growth to date. Urine cultures w ith no growth to date. ASSESSMENT: The patient is an 81-year-old man with past medical history of stage IV adenocarcinoma o f the colon (with hepatic and pulmonary metastases), hypertension, hyperlipidemia, tertiary syphilis and peripheral vascular disease who presented to [facility] for evaluation of a 2-week hi story of progressively worsening dyspnea, malaise, decreased p.o. intake and cough productive of gree n sputum. PLAN: 1. Sepsis secondary to healthcare-associated pneumonia. Input from Dr. Castellano and Dr. Chatman, in fectious disease noted and greatly appreciated. The patient is scheduled to complete a 7 day course of antibiotics. He remains on doxycycline 100 mg p.o. q. 12 hours and meropenem 1 gram IV q. 8 hours . Today is day #6 of antibiotics. Cultures with no growth to date. 2. Bilateral pleural effusion status post right-sided thoracentesis. Etiology likely secondary to h ealthcare-associated pneumonia with possible super imposition of malignant effusion, cytology reports are pending. 3. Atrial fibrillation, new onset. Input from Dr. Red of cardiology and greatly appreciated. The patient remains rate controlled. Continue with atenolol 50 mg p.o. b.i.d., and verapamil 180 mg p.o. daily. Continue with Eliquis 5 mg p.o. b.i.d. 4. Stage IV adenocarcinoma of the colon, status post left hemicolectomy. Input from Dr. Barbour and Dr. Levin noted. Dr. Yang of gastroenterology also noted and greatly appreciated and no acute GI intervention at present. 5. Hypertension. Blood pressure controlled. Continue with current medications. 6. Hyperlipidemia. Continue with Lipitor 40 mg p.o. daily. 7. Left iliac vasoocclusive disease. Continue with Eliquis 5 mg p.o. b.i.d. and Lipitor 40 mg p.o. daily. 8. Tertiary syphilis. The patient is status post treatment course of aqueous penicillin. 9. Prophylaxis. GI prophylaxis not indicated as the patient is eating. He remains on Eliquis for h is PVD, thus DVT prophylaxis not indicated. CODE STATUS: Full code. Ghanshyam Franklin MD cc: [phone] TT: 12/16/2016 08:47:43 Confirmation # [id number] Dictation # [id number] jn
[2016-12-16] MEDS: Potassium Chloride 20 mEq ER Tab PO SCH (09:58)
[2016-12-16] MEDS: Verapamil 180 mg ER Tab PO SCH (09:58)
[2016-12-16] MEDS: Magnesium Oxide 400 mg Tab UD PO SCH (09:59)
--- NOTE | 2016-12-16 11:15 | PN ---
DATE: 12/16/2016 SUBJECTIVE: The patient is in room 367, bed 2. Was seen earlier today. No fevers, no chills. He i s complaining of weakness. PHYSICAL EXAMINATION: VITAL SIGNS: Temperature is 98, blood pressure is 111/60, respiratory rate of 16. HEENT: Unremarkable. NECK: Supple. LUNGS: Have decreased breath sounds. HEART: Normal S1, S2. ABDOMEN: Soft, nontender. LABORATORY EXAMINATION: Reveals a white count of 15,600, hemoglobin of 10, platelets of 427. Chemis tries reveal the BUN of 30, creatinine 0.9. LFTs are noted. Urinalysis is noted. Microbiology reve als the blood cultures are negative. Urine cultures are negative. The patient's procalcitonin is 2. 09. Dr. Ghanshyam Franklin's note is reviewed. ASSESSMENT AND PLAN: This is an 81-year-old male with sepsis, right lower lobe healthcare-associated right upper lung mass, right pleural effusion, status post ultrasound-guided thoracentesis with left lower lobe pulmonary emboli, history of colon cancer with metastases to the liver, and history of sy philis. Treated currently on doxycycline and meropenem day #6. Would complete 4-7 days of antibioti cs. We will also order repeat procalcitonin. We will follow closely with you. Bin Castellano MD cc: [phone] TT: 12/16/2016 11:14:17 Confirmation # [id number] Dictation # [id number] barrett
--- NOTE | 2016-12-16 12:36 | PN ---
DATE: 12/16/2016 The patient is in room 367, bed 2. REASON FOR CONSULTATION AND FOLLOWUP: Chronic atrial fibrillation, was admitted with rapid rate. HISTORY OF PRESENT ILLNESS: An 81-year-old male with past medical history significant for colon canc er and chemotherapy who was found in atrial fibrillation which he has had since 10/03/2016, was admit greg with rapid rate at this time. With therapy, the patient's heart rate is controlled. The patient is sitting in chair without any chest pain, shortness of breath, palpitation. PHYSICAL EXAMINATION: VITAL SIGNS: Blood pressure 118/60, respirations 20, pulse 100, temperature 98.4. HEAD: Normocephalic. EYES: Pupils normal. Conjunctivae slightly pale. NECK: JVP low. Carotid equal. THORAX: AP diameter normal. LUNGS: Clear. CARDIOVASCULAR: S1, S2. ABDOMEN: Soft, no tenderness, no organomegaly. EXTREMITIES: No clubbing, no cyanosis. LABORATORY DATA: WBC 15.6, hemoglobin 10.8, hematocrit 32.5, platelet 427. Sodium 132, potassium 4. 9, BUN 30, creatinine 0.9, total bilirubin 1.6, AST 158, ALT 42, alkaline phosphatase 462, total prot ein 5.7, albumin 2.5. DIAGNOSES: Atrial fibrillation with rapid rate. Now rate is controlled. Protein calorie malnutriti on, anemia, history of colon cancer with metastasis, possible metastatic pleural effusion. PLAN: Continue verapamil at 180 mg p.o. daily, Doryx 100 mg p.o. q. 12 hours, Eliquis 5 mg b.i.d., p otassium 20 mEq p.o. daily, Lipitor 40 daily, mag oxide 400 mg p.o. daily, meropenem 1 gram IV q. 8 h ourly, atenolol 50 mg b.i.d. We will continue present therapy and we will follow with you. Constantine Mcdonald MD cc: [id number] TT: 12/16/2016 12:35:29 Confirmation # [id number] Dictation # [id number] tn
--- NOTE | 2016-12-17 01:10 | CP.PCM.PN ---
Subjective - Date & Time of Evaluation Date of Evaluation: 12/17/16 Time of Evaluation: 01:07 - Subjective Subjective: S:Requests a sleeping pill. Has no other complaints. Pertinent medical record was reviewed. O: Last Vital Signs 3 Temp 98.2 F 12/16/16 16:44 Pulse 99 H 12/16/16 17:22 Resp 18 12/16/16 16:44 BP 111/58 L 12/16/16 17:22 Pulse Ox 94 L 12/16/16 16:44 Awake, alert, not in distress. LUNGS:Normal breathing pattern. A:Adjustment Insomnia. P:Benadryl 50 mg PO x1. Objective - Vital Signs/Intake and Output Vital Signs (last 24 hours): Temp Pulse Resp BP Pulse Ox 98.2 F 99 H 18 111/58 L 94 L 12/16/16 16:44 12/16/16 17:22 12/16/16 16:44 12/16/16 17:22 12/16/16 16:44 Intake and Output: 12/16/16 12/17/16 18:59 06:59 Intake Total 960 120 Balance 960 120 - Medications Medications: Current Medications Acetaminophen (Tylenol 325mg Tab) 650 mg PO Q4H PRN PRN Reason: Headache Last Admin: 12/15/16 12:36 Dose: 650 mg Apixaban (Eliquis) 5 mg PO BID [facility] PRN Reason: Protocol Last Admin: 12/16/16 17:22 Dose: 5 mg Atenolol (Tenormin) 50 mg PO BID [facility] Last Admin: 12/16/16 17:22 Dose: 50 mg Atorvastatin Calcium (Lipitor) 40 mg PO DIN [facility] Last Admin: 12/16/16 17:22 Dose: 40 mg Doxycycline Hyclate (Doryx) 100 mg PO Q12 [facility] PRN Reason: Protocol Stop: 12/25/16 22:01 Last Admin: 12/16/16 21:44 Dose: 100 mg Meropenem 1g/NS 100mL IVPB (Meropenem 1g/Ns 100ml Ivpb) 1 gm in 100 mls @ 100 mls/hr IVPB Q8 [facility] PRN Reason: Protocol Stop: 12/25/16 22:01 Last Admin: 12/16/16 21:44 Dose: 100 mls/hr Levalbuterol HCl (Xopenex) 1.25 mg IH [id number] [facility] Last Admin: 12/16/16 20:33 Dose: 1.25 mg Magnesium Oxide (Mag-Ox) 400 mg PO DAILY [facility] Last Admin: 12/16/16 09:59 Dose: 400 mg Potassium Chloride (K-Dur 20 Meq Er Tab) 20 meq PO BRK [facility] Last Admin: 12/16/16 09:58 Dose: 20 meq Verapamil HCl (Calan Sr Tab) 180 mg PO DAILY [facility] Last Admin: 12/16/16 09:58 Dose: 180 mg - Labs Labs: 12/16/16 07:45 12/16/16 07:45
[2016-12-17] MEDS: Levalbuterol 1.25 MG/3 ML Inhal Soln UD IH SCH ×3 (01:52→14:08)
[2016-12-17] MEDS: Meropenem 1g/NS 100mL IVPB 1 GM/100 ML PIGGYBACK IVPB SCH (05:44)
[2016-12-17 07:08] LABS: ADD MANUAL DIFF? NO
[2016-12-17 07:16] LABS: BASO # 0.02 K/mm3 (0.0-2.0); BASO % 0.2 % (0.0-3.0); EOS % 0.3 % (1.5-5.0); GRAN # 9.37 (1.4-6.5); GRAN % 70.4 % (50.0-68.0); LYMPH # 2.1 (1.2-3.4); LYMPH % 15.7 % (22.0-35.0); MEAN CELL VOLUME 76.7 fL (80.0-105.0); MEAN CORPUSCULAR HGB CONC 32.6 g/dl (31.0-37.0); MEAN PLATELET VOLUME 9.6 fl (7.0-11.0); MONO # 1.8 (0.1-0.6); MONO % 13.4 % (1.0-6.0); PLATELET COUNT 417 10^3/uL (120.0-450.0); RED CELL DISTRIBUTION WIDTH 18.2 % (11.5-14.5); WHITE BLOOD COUNT 13.3 10^3/ul (4.5-11.0)
[2016-12-17 07:24] LABS: ALB/GLOB RATIO 0.8 (1.1-1.8); ALKALINE PHOSPHATASE 484 U/L (38-133); ALT/SGPT 42 U/L (7-56); AST/SGOT 127 U/L (15-59); BILIRUBIN,TOTAL 1.4 mg/dL (0.2-1.3); BLOOD UREA NITROGEN 35 mg/dL (7-21); CALCIUM 8.5 mg/dL (8.4-10.5); CARBON DIOXIDE 26 mmol/L (21-33); CHLORIDE 99 mmol/L (98-107); GFR AFRICAN-AMERICAN > 60; GLUCOSE,RANDOM 75 mg/dL (70-110); SODIUM 132 mmol/L (132-148); TOTAL PROTEIN 5.7 g/dL (5.8-8.3)
--- NOTE | 2016-12-17 09:14 | PN ---
DATE: 12/17/2016 The patient is in bed, in no acute distress, nontoxic. PHYSICAL EXAMINATION: VITAL SIGNS: Temperature is 98, blood pressure is 111/50, respiratory rate of 18, heart rate of 99. HEENT: Unremarkable. NECK: Supple. LUNGS: Have decreased breath sounds. HEART: Normal S1, S2. ABDOMEN: Soft, nontender. LABORATORY EXAMINATION: Reveals a white count of 13,300, hemoglobin of 10, platelets of 417. BUN of 35, creatinine of 1.0. Procalcitonin is 2.7 Review of medications reveals the patient to be on meropenem and doxycycline. ASSESSMENT AND PLAN: An 81-year-old male who was admitted with sepsis, right lower lobe healthcare-a ssociated right lung mass, right pleural effusion, status post ultrasound-guided thoracentesis and le ft lower lobe pulmonary emboli, history of colon cancer, metastases to liver and history of syphilis, has been treated. Today is day #7. No further antibiotics necessary. The patient wishes to be dis charged. Bin Castellano MD cc: [id number] TT: 12/17/2016 09:13:07 Confirmation # [id number] Dictation # [id number] en
[2016-12-17] MEDS: Potassium Chloride 20 mEq ER Tab PO SCH (09:15)
[2016-12-17] MEDS: Verapamil 180 mg ER Tab PO SCH (09:15)
[2016-12-17] MEDS: Magnesium Oxide 400 mg Tab UD PO SCH (09:16)
[2016-12-17 11:32] VITALS: BP 115/79; PULSE 84; RESP 20; TEMP 97.9; O2SAT 98
--- NOTE | 2016-12-17 14:35 | PN ---
DATE: 12/17/2016 The patient is in room 367, bed 2. REASON FOR CONSULTATION AND FOLLOWUP: Chronic atrial fibrillation, rapid rate. HISTORY OF PRESENT ILLNESS: The patient is an 81-year-old male with past medical history significant for colon cancer and chemotherapy, was found in atrial fibrillation with rapid rate on admission and patient has history of atrial fibrillation since 10/03/2016. The patient's heart rate is controlled with the medication now. The patient is lying flat in bed without chest pain, shortness of breath, o r palpitation. PHYSICAL EXAMINATION: VITAL SIGNS: Blood pressure 115/79, respirations 20, pulse 84, temperature 97.9. HEAD: Normocephalic. EYES: Pupils normal. Conjunctivae slightly pale. NECK: JVP low. Carotid equal. THORAX: AP diameter normal. LUNGS: Clear. CARDIOVASCULAR: S1, S2. ABDOMEN: Soft, no tenderness, no organomegaly. Bowel sounds normal. EXTREMITIES: No clubbing, no cyanosis. LABORATORIES: WBC 13.3, hemoglobin 10.1, hematocrit 31.0, platelets 417. Sodium 132, potassium 5.0, BUN 35, creatinine 1.0, total bilirubin 1.4, AST 127, ALT 42, alkaline phosphatase 484. Total prote in 5.7, albumin 2.6. DIAGNOSES: Atrial fibrillation with rapid rate, now rate is controlled, protein calorie malnutrition , anemia, history of colon cancer with metastasis, possible metastatic pleural effusion. Clinically, cardiac status is now stable. The patient will continue present therapy with verapamil, Calan SR 180 mg p.o. daily, Doryx 100 mg p.o. q. 12 hours, Eliquis 5 mg b.i.d., potassium 20 mEq p.o. daily, Lipitor 40 mg daily, mag oxide 400 mg p.o. daily, meropenem 1 gram IV q. 8 hours, atenolol 50 mg daily. We will continue present therapy and we will follow. Constantine Mcdonald MD cc: [id number] TT: 12/17/2016 14:35:01 Confirmation # [id number] Dictation # [id number] en
--- NOTE | 2016-12-17 16:52 | PN ---
DATE: 12/17/2016 SUBJECTIVE: The patient seen and examined at bedside on the general medical [facility]. No acute events overnight. He remains afebrile and hemodynamically stable. This morning, the patient reports his respiratory status is back to his baseline. He denies any complaints and is ready to go home. OBJECTIVE: VITAL SIGNS: Temperature 97.9, pulse 84, blood pressure 115/79, respiratory rate 20, oxygen saturation 98% on room air. GENERAL: In no apparent distress. HEENT: PERRL. EOMI. No scleral icterus. No conjunctival pallor. NECK: Supple, full range of motion, no JVD. LUNGS: Decreased breath sounds at bases, otherwise clear. CARDIOVASCULAR: Irregularly irregular. Normal S1 and S2. ABDOMEN: Normoactive bowel sounds, soft, nontender, nondistended. Viable colostomy site appears clean, dry and intact. EXTREMITIES: No edema. NEUROLOGIC: Awake, alert and oriented x 3. No focal motor deficits. LABORATORY DATA: WBC 13.3 with 70% neutrophils, hemoglobin 10, hematocrit 31, platelets 417. Chemistry reviewed and unremarkable. Blood cultures with no growth to date. Urine cultures with no growth to date. 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 intake and cough productive of green sputum. PLAN: 1. Sepsis secondary to healthcare-associated pneumonia, resolved. Input from Dr. Castellano noted and appreciated. The patient has completed a 7-day course of antibiotics consisting of doxycycline 100 mg p.o. q.12 hours and meropenem 1 gram IV q.8 hours. Cultures remain negative and leukocytosis is trending favorably. 2. Bilateral pleural effusion status post right-sided thoracentesis. Etiology likely secondary to healthcare-associated pneumonia and possible malignant effusion. Cytology reports are pending. 3. Atrial fibrillation, new onset. Input from Dr. Red noted and greatly appreciated. The patient remains rate controlled. Continue with atenolol 50 mg p.o. b.i.d. and verapamil 180 mg p.o. daily. Continue with Eliquis 5 mg p.o. b.i.d. 4. Stage IV adenocarcinoma of the colon, status post left hemicolectomy. Input from Dr. Levin noted and appreciated. Input from Dr. Yang of gastroenterology noted and appreciated and no acute GI intervention indicated. 5. Hypertension. Blood pressure controlled. Continue with current medications. 6. Hyperlipidemia. Continue with Lipitor 40 mg p.o. daily. 7. Left iliac vasoocclusive disease. Continue with Eliquis 5 mg p.o. b.i.d. and Lipitor 40 mg p.o. daily. 8. Tertiary syphilis. The patient is status post treatment course of aqueous penicillin. 9. Prophylaxis. GI prophylaxis not indicated as the patient is eating. He remains on Eliquis for his PVD, thus DVT prophylaxis not indicated. CODE STATUS: Full code. Ghanshyam Franklin MD cc: [phone] TT: 12/17/2016 16:52:33 Confirmation # [id number] Dictation # [id number] blossom MTDD
--- NOTE | 2016-12-18 08:56 | CON ---
DATE: 12/16/2016 The patient is in room 367, bed 2. REASON FOR CONSULTATION: Metastatic stage IV carcinoma of the colon with documented lung and liver m etastasis, status post primary resection of the tumor with a diverting colostomy who is now currently in the hospital for healthcare-associated pneumonia, status post tapping of pleural fluid and atrial fibrillation treated appropriately with an medications with decrease in the heart rate. SUBJECTIVE: The patient is examined at bedside in room 367. The patient reports no acute events, no nausea, no vomiting, no fevers and no chills. He feels better, specifically from the coughing and b reathing point of view and he is eager to get home soon. PHYSICAL EXAMINATION: VITAL SIGNS: Stable. T-max is 98.4, pulse is 99, blood pressure is 115/58, respirations 20 and O2 s at is 98% on room air. HEENT: Head is normocephalic and atraumatic. GENERAL: The patient is in no a cute distress. HEENT: Mouth reveals no oropharyngeal lesions. NECK: Supple. There is no adenopath y. LUNGS: Reveals decreased breath sounds on the right side posteriorly. Scattered wheezes are hea rd. HEART: Reveals S1 and S2 to be normal. The patient has irregularly irregular heart rate. ABDO MEN: Soft and nondistended. Colostomy is noted on the left side. It is functional. No rebound, ri gidity or guarding is noted. EXTREMITIES: Reveals ankle edema to have decreased. The patient is co mplaining of pain in the left side related to his stent and peripheral vascular disease appears to be improved. HEART: Functions are normal. NEUROLOGIC: No focal deficits are noted. LABORATORY DATA: Blood cultures to date have not shown any growth. The patient is still on Merrem I V antibiotic along with oral doxycycline. Labs from today were reviewed. White count is 15.6, hemogl obin 10.8, hematocrit 32 and platelet count of 427,000. Chemistries reveal a sodium of 132, potassiu m 4.9 and chloride of 97. Total bili has decreased to 1.6, AST is 158, ALT is 42 and alkaline phosph atase is 462. Procalcitonin was high suggestive of an inflammatory response with infection and that has gotten better. THE PATIENT'S MEDICATIONS: Were reviewed and they are unchanged. The patient continues to be on Zandra rem 1 gram q. 12 hours along with oral doxycycline. He is also on verapamil 180 daily along with jett rvastatin and atenolol 50 b.i.d. He continues to be on Eliquis and I told the patient that I have set him up to have Eliquis delivered from the [place] [facility] in the hospital through patient assistanc e program. ASSESSMENT NOTES AND PLAN: The patient will continue his antibiotics and be discharged. Will contin ue to follow him as an outpatient. Hopefully, he will resume his chemotherapy next week. Overall, p rognostically, things have not changed. The patient is eager to have his colostomy reversed, but I b marnie at this point in time concentrating and controlling his cancer is more important. We may have to come with additional therapy or add some treatments to his regimen. Routine post exam instruction s have been given to the patient. Will continue to monitor him and more importantly needs to make pires re he continues to take his other medicines as he does not have good secondary coverage and he is ge ble to get some of the other medicines if they are costly to be filled up out as an outpatient. Janet Levin MD cc: [id number] TT: 12/16/2016 23:35:41 Confirmation # [id number] Dictation # [id number] sn
--- NOTE | 2016-12-18 19:42 | DS ---
ADMITTING DIAGNOSIS: Sepsis secondary to healthcare-associated pneumonia. DISCHARGE DIAGNOSIS: Sepsis secondary to healthcare-associated pneumonia. SECONDARY DIAGNOSES: Atrial fibrillation (new onset), bilateral pleural effusions, stage IV invasive adenocarcinoma of the colon status post left hemicolectomy (with hepatic and pulmonary metastases), hypertension, hyperlipidemia, tertiary syphilis (status post treatment course of aqueous penicillin) and peripheral vascular disease. CONSULTATIONS: Dr. Red (cardiology), Dr. Castellano (infectious disease), Dr. Yang (gastroenterolo gy), Dr. Levin (hematology/oncology), Dr. Verduzco (interventional radiology). IMAGING STUDIES: 1. Chest x-ray, which demonstrated a right lower lobe infiltrate. 2. CT of the chest which demonstrated no large or central pulmonary embolism, but did demonstrate fi ndings concerning for a possible relatively small left lower lobe embolus. However, this was not con sidered a definitive finding. PROCEDURE: A right-sided thoracentesis with aspiration of 500 mL of posadas fluid. HISTORY OF PRESENT ILLNESS: The patient is an 81-year-old man with a past medical history of stage I V invasive adenocarcinoma of the colon status post left hemicolectomy (with hepatic and pulmonary met astases), hypertension, hyperlipidemia, tertiary syphilis and peripheral vascular disease who present ed to [facility] for evaluation of a 2-week history of progressively worsening dyspnea. The patient states that he was in his usual state of health until approximately 2 weeks ago when he d eveloped flu-like symptoms. He was treated by his PMD on an outpatient basis with a Z-FINA with minim al improvement in his symptoms. He then gradually developed increasing dyspnea and decreased exercis e tolerance and a cough productive of scant green sputum. The patient was closely followed by Dr. Sade boateng for his underlying metastatic adenocarcinoma of the colon and underwent a routine CT of the [address] st, abdomen and pelvis on 12/08/2016, which reportedly demonstrated a right-sided pleural effusion wit h bibasilar infiltrates. Given the patient's ongoing pulmonary symptoms and his clinical deteriorati on with failure of outpatient therapy, he was advised to present to the Emergency Department for furt her evaluation. Upon arrival to the ED, he was noted to be afebrile, but tachycardic with a pulse of 133 and was also found to be in new onset atrial fibrillation. The patient was started on a Cardize m drip, broad spectrum IV antibiotics and admitted to the telemetry mos[facility] for continued management of sepsis secondary to healthcare-associated pneumonia and new onset atrial fibrillation. HOSPITAL COURSE: Upon admission to the telemetry [facility], the patient was evaluated by Dr. Nona serrano infectious disease and placed on doxycycline 100 mg p.o. q. 12 hours and meropenem 1 gram IV q. 8 h ours. He was also evaluated by Dr. Red and was weaned off the Cardizem drip and started on atenolol and verapamil. These medications were adjusted over the following 48 hours with successful rate con trol. The patient was already on Eliquis, thus no further anticoagulation therapy was indicated. Gi alfonso his history of underlying malignancy and the development of his pleural effusions, Dr. Hugh robledo was consulted and the patient underwent successful right-sided thoracentesis with aspiration of 500 mL of posadas fluid. The cytology report is still pending. Over the following 4 days, the patient was noted to have significant improvement in his leukocytosis since admission and return to his baseline pulmonary status. The patient also remained rate controlled and hemodynamically stable during the re mainder of his hospital stay and by hospital day #6, he was deemed stable for discharge to home. CONDITION: Fair, improved. DISPOSITION: To home. DISCHARGE MEDICATIONS: Atenolol 50 mg p.o. b.i.d., verapamil 180 mg p.o. daily, Eliquis 5 mg p.o. b. i.d. DISCHARGE INSTRUCTIONS: The patient was advised that if he has any recurrence of his symptoms or any development of chest pain, palpitations, dyspnea, orthopnea or near syncope, to present to his PMD o r to the nearest Emergency Department immediately. FOLLOWUP: The patient to follow up with his PMD within 1 week of discharge. The patient to follow u p with Dr. Levin as scheduled. Ghanshyam Franklin MD cc: [phone] TT: 12/18/2016 19:41:24 lavell
== END 2016-12-17 14:23 | disposition home or self-care (01) | DRG 871 ==
LOC: ED 15:21 → ERH 17:03 → 2RSO 20:15 → 3RNO 12-15 12:30
PROVIDERS: ADMIT Student in an Organized Health Care Education/Training Program; ATTEND Student in an Organized Health Care Education/Training Program
PROC: BB4BZZZ Ultrasonography of Pleura (ICD-10-PCS; 2016-12-12)
PROC: 0W993ZX Drainage of Right Pleural Cavity, Percutaneous Approach, Diagnostic (ICD-10-PCS; principal; 2016-12-12 11:00)
DX: A41.9 Sepsis, unspecified organism (principal); J18.9 Pneumonia, unspecified organism; I26.99 Other pulmonary embolism without acute cor pulmonale; J90 Pleural effusion, not elsewhere classified; C78.7 Secondary malignant neoplasm of liver and intrahepatic bile duct; C78.00 Secondary malignant neoplasm of unspecified lung; E87.3 Alkalosis; E44.0 Moderate protein-calorie malnutrition; R18.8 Other ascites; E87.1 Hypo-osmolality and hyponatremia; A52.9 Late syphilis, unspecified; I48.2 Chronic atrial fibrillation; I73.9 Peripheral vascular disease, unspecified; Y95 Nosocomial condition; I10 Essential (primary) hypertension; E78.5 Hyperlipidemia, unspecified; F51.02 Adjustment insomnia; I45.10 Unspecified right bundle-branch block; E78.00 Pure hypercholesterolemia, unspecified; R09.02 Hypoxemia; D64.9 Anemia, unspecified; Z85.46 Personal history of malignant neoplasm of prostate; Z87.891 Personal history of nicotine dependence; Z90.49 Acquired absence of other specified parts of digestive tract; Z85.038 Personal history of other malignant neoplasm of large intestine; Z68.30 Body mass index [BMI] 30.0-30.9, adult; Z93.3 Colostomy status; Z79.02 Long term (current) use of antithrombotics/antiplatelets

== ENCOUNTER 2017-01-20 14:20 | Inpatient (IN) | payer MEDICARE, OTHER ==
[2017-01-20 14:26] VITALS: BMI 31.6
--- NOTE | 2017-01-20 14:35 | ED PDOC ---
Arrival/HPI - General Chief Complaint: Shortness Of Breath Time Seen by Provider: 01/20/17 14:25 Historian: Patient - Critical Care Critical Care Minutes: 30 minutes - History of Present Illness Time/Duration: Prior to Arrival Symptom Onset: Gradual Symptom Course: Worsening Severity Level: Moderate Activities at Onset: Rest Associated Symptoms (Text): 01/20/17 14:32 Patient complains of chronic dyspnea on exertion. Recent palpitations. Recent admission for new onset atrial fibrillation. He was seen in the office today by his oncologist and found to be tachycardic and directed to the emergency department. No chest pain. Patient has metastatic colon cancer. There is a functioning colostomy. Past Medical History - Infectious Disease Hx of Infectious Diseases: None - Cardiac Hx Cardiac Disorders: Yes Hx Hypertension: Yes - Pulmonary Hx Respiratory Disorders: Yes (PLEURAL EFFUSION 12-11-16) - Neurological Hx Neurological Disorder: No - HEENT Hx HEENT Disorder: Yes Other/Comment: [place] WEARS B/L HEARING AIDS, WEARS EYEGLASSES (READING) - Renal Hx Renal Disorder: No - Endocrine/Metabolic Hx Endocrine Disorders: No - Hematological/Oncological Hx Blood Disorders: Yes Hx Cancer: Yes Hx Chemotherapy: Yes - Integumentary Hx Dermatological Disorder: No - Musculoskeletal/Rheumatological Hx Musculoskeletal Disorders: No Hx Falls: No - Gastrointestinal Hx Gastrointestinal Disorders: Yes (adenocarcinoma of the colon) Hx Diverticulitis: Yes - Genitourinary/Gynecological Hx Genitourinary Disorders: Yes Hx Prostate Problems: Yes (HX OF PROSTATE CA (RADIATION PROSTATE SEEDS)) - Psychiatric Hx Anxiety: No Hx Substance Use: No - Surgical History Other/Comment: L HEMICOLECTOMY (COLOSTOMY IN PLACE) - Anesthesia Hx Anesthesia Reactions: No Hx Malignant Hyperthermia: No - Suicidal Assessment Feels Threatened In Home Enviroment: No Family/Social History - Physician Review Nursing Documentation Reviewed: Yes Family/Social History: Unknown Family HX Smoking Status: Former Smoker Hx Alcohol Use: No Hx Substance Use: No Allergies/Home Meds Allergies/Adverse Reactions: Allergies No Known Allergies Allergy (Verified 01/20/17 14:26) Home Medications: Home Meds Medication Instructions Recorded Confirmed Amlodipine Besylate [Norvasc] 10 mg PO DAILY 03/27/16 01/20/17 Hydrochlorothiazide 12.5 mg PO DAILY 03/27/16 01/20/17 Lisinopril [Zestril] 40 mg PO DAILY 03/27/16 01/20/17 Metoprolol Tartrate [Lopressor] 100 mg PO BID 03/27/16 01/20/17 Review of Systems - Physician Review All systems were reviewed & negative as marked: Yes - Review of Systems Constitutional: Fatigue. absent: Fevers Respiratory: SOB. absent: Cough, Sputum, Wheezing Cardiovascular: Palpitations. absent: Chest Pain, Syncope Gastrointestinal: absent: Abdominal Pain, Nausea, Vomiting Neurological: absent: Headache, Dizziness, Focal Weakness Physical Exam Vital Signs Temp Pulse Resp BP Pulse Ox 01/20/17 14:50 125 H 120/91 H 01/20/17 14:43 97.8 F 130 H 12 120/91 H 98 01/20/17 14:40 134 H 120/91 H 01/20/17 14:30 17 96 Temperature: Afebrile Blood Pressure: Normal Pulse: Tachycardic Respiratory Rate: Normal Appearance: Positive for: Well-Appearing, Non-Toxic, Uncomfortable, Other (Pale and chronically ill appearing) Pain Distress: None Mental Status: Positive for: Alert and Oriented X 3 - Systems Exam Head: Present: Atraumatic, Normocephalic Pupils: Present: PERRL Extroacular Muscles: Present: EOMI Conjunctiva: Present: Normal Mouth: Present: Moist Mucous Membranes Pharnyx: No: ERYTHEMA, EXUDATE, TONSILS ENLARGED Neck: Present: Normal Range of Motion Respiratory/Chest: Present: Respiratory Distress (Decreased breath sounds right side) Cardiovascular: Present: Irregular Rhythm, Tachycardic Abdomen: Present: Normal Bowel Sounds, Other (Functioning colostomy). No: Tenderness, Distention, Peritoneal Signs, Rebound, Guarding Upper Extremity: Present: Normal Inspection. No: Cyanosis, Edema Lower Extremity: Present: Normal Inspection, Edema (2+ bilateral lower extremity edema) Neurological: Present: GCS=15, CN II-XII Intact, Speech Normal, Motor Func Grossly Intact Skin: Present: Warm, Dry, Pale. No: Rashes Psychiatric: Present: Alert, Oriented x 3, Normal Insight, Normal Concentration Medical Decision Making ED Course and Treatment: 01/20/17 14:34 EKG shows atrial fibrillation rate approximately 125 with a right bundle branch block which is old when compared with EKG of 12/11/2016 01/20/17 15:20 EKG shows atrial fibrillation rate approximately 100 with a right bundle branch block. And no acute ST or T-wave changes 01/20/17 15:[address]A Franklin who will admit to telemetry. White count is similar to previous. BNP is similar to previous. - Lab Interpretations Lab Results: 01/20/17 14:30 01/20/17 14:30 Lab Results 01/20/17 14:30: Sodium 134, Potassium 4.4, Chloride 102, Carbon Dioxide 23, Anion Gap 13, BUN 17, Creatinine 0.7, Est GFR ( Amer) > 60, Est GFR (Non- Af Amer) > 60, Random Glucose 79, Calcium 8.9, Total Bilirubin 1.6 H, AST 107 H , ALT 58 H, Alkaline Phosphatase 605 H, Lactate Dehydrogenase 1013 H, Total Creatine Kinase 91, Troponin I < 0.01 D, NT-Pro-B Natriuret Pep 3750 H, Total Protein 6.3, Albumin 3.1, Globulin 3.2, Albumin/Globulin Ratio 1.0 L 01/20/17 14:30: PT 12.3 H, INR 1.14 H, APTT 27.9 01/20/17 14:30: WBC 17.7 H, RBC 4.37, Hgb 11.5 L, Hct 35.7 L, MCV 81.7, MCH 26.3 , MCHC 32.2, RDW 22.1 H, Plt Count 330, MPV 9.2, Gran % 67.0, Lymph % (Auto) 18.9 L, [place] % (Auto) 13.7 H, Eos % (Auto) 0.3 L, Baso % (Auto) 0.1, Gran # 11.84 H, Lymph # 3.3, [place] # 2.4 H, Eos # 0.1, Baso # 0.02 - RAD Interpretation Radiology Orders: 01/20/17 14:30 CHEST PORTABLE [RAD] Stat Chest 1 view shows borderline cardiomegaly with no infiltrate effusion or pneumothorax Sand Buffer: ED Physician - Medication Orders Current Medication Orders: diltiaZEM IVPB 100mg in NS (Cardizem 100mg In Ns) 100 mls @ 5 mls/hr IV .Q20H PRN; Protocol; 5 MG/HR PRN Reason: PER MD Last Admin: 01/20/17 14:50 Dose: 5 mls/hr Discontinued Medications Diltiazem HCl (Cardizem) 20 mg IVP ONCE ONE Stop: 01/20/17 14:32 Last Admin: 01/20/17 14:40 Dose: 20 mg Disposition/Present on Arrival - Present on Arrival Any Indicators Present on Arrival: No History of DVT/PE: No History of Uncontrolled Diabetes: No Urinary Catheter: No History of Decub. Ulcer: No History Surgical Site Infection Following: None - Disposition Have Diagnosis and Disposition been Completed?: Yes Diagnosis: Atrial fibrillation with RVR, Dyspnea on exertion, Metastatic colon cancer to liver Disposition: HOSPITALIZED Disposition Time: 15:26 Patient Plan: Admission, Telemetry Patient Problems: Current Active Problems Problem Status Onset Atrial fibrillation with RVR Acute Dyspnea on exertion Acute Metastatic colon cancer to liver Acute Condition: FAIR Referrals: Noemi MACHUCA,Ghanshyam Prado MD [Primary Care Provider] - Follow up with primary
[2017-01-20 14:41] LABS: ADD MANUAL DIFF? NO
[2017-01-20 14:45] LABS: BASO # 0.02 K/mm3 (0.0-2.0); BASO % 0.1 % (0.0-3.0); EOS # 0.1 (0.0-0.7); EOS % 0.3 % (1.5-5.0); GRAN # 11.84 (1.4-6.5); HEMATOCRIT 35.7 % (42.0-52.0); LYMPH # 3.3 (1.2-3.4); LYMPH % 18.9 % (22.0-35.0); MEAN CELL VOLUME 81.7 fL (80.0-105.0); MEAN CORPUSCULAR HEMOGLOBIN 26.3 pg (25.0-35.0); MEAN CORPUSCULAR HGB CONC 32.2 g/dl (31.0-37.0); MEAN PLATELET VOLUME 9.2 fl (7.0-11.0); MONO # 2.4 (0.1-0.6); MONO % 13.7 % (1.0-6.0); PLATELET COUNT 330 10^3/uL (120.0-450.0); RED CELL DISTRIBUTION WIDTH 22.1 % (11.5-14.5); WHITE BLOOD COUNT 17.7 10^3/ul (4.5-11.0)
[2017-01-20] MEDS: diltiaZEM IVPB 100mg in NS 100 ML IV PRN (14:50)
[2017-01-20 14:55] LABS: INR 1.14 (0.93-1.08); PARTIAL THROMBOPLASTIN TIME 27.9 Seconds (23.7-30.8)
[2017-01-20 14:57] LABS: ALKALINE PHOSPHATASE 605 U/L (38-133); ALT/SGPT 58 U/L (7-56); AST/SGOT 107 U/L (15-59); BILIRUBIN,TOTAL 1.6 mg/dL (0.2-1.3); BLOOD UREA NITROGEN 17 mg/dL (7-21); CALCIUM 8.9 mg/dL (8.4-10.5); CARBON DIOXIDE 23 mmol/L (21-33); CHLORIDE 102 mmol/L (98-107); GFR AFRICAN-AMERICAN > 60; GLUCOSE,RANDOM 79 mg/dL (70-110); POTASSIUM 4.4 mmol/L (3.6-5.0); SODIUM 134 mmol/L (132-148); TOTAL PROTEIN 6.3 g/dL (5.8-8.3)
[2017-01-20 15:08] LABS: TROPONIN I < 0.01 ng/mL
--- NOTE | 2017-01-20 16:43 | RAD ---
HISTORY: Tachycardia. Portable study 14:43. COMPARISON: 12/13/2016. FINDINGS: LUNGS: No active pulmonary disease. PLEURA: No significant pleural effusion identified, no pneumothorax apparent. CARDIOVASCULAR: No radiographic findings to suggest acute or significant cardiovascular disease. OSSEOUS STRUCTURES: No significant abnormalities. VISUALIZED UPPER ABDOMEN: Normal. OTHER FINDINGS: None. IMPRESSION: No active disease. No significant interval change compared to the prior examination(s).
[2017-01-20] MEDS ORDERED: Pneumococcal 23-Valent Vaccine IM ONE (23:17)
[2017-01-21 07:28] LABS: ADD MANUAL DIFF? NO
[2017-01-21 07:32] LABS: BASO # 0.03 K/mm3 (0.0-2.0); BASO % 0.2 % (0.0-3.0); EOS # 0.1 (0.0-0.7); EOS % 0.6 % (1.5-5.0); GRAN # 9.99 (1.4-6.5); GRAN % 60.6 % (50.0-68.0); HEMATOCRIT 34.9 % (42.0-52.0); LYMPH # 4.2 (1.2-3.4); LYMPH % 25.3 % (22.0-35.0); MEAN CELL VOLUME 80.8 fL (80.0-105.0); MEAN CORPUSCULAR HEMOGLOBIN 26.4 pg (25.0-35.0); MEAN CORPUSCULAR HGB CONC 32.7 g/dl (31.0-37.0); MEAN PLATELET VOLUME 9.2 fl (7.0-11.0); MONO # 2.2 (0.1-0.6); MONO % 13.3 % (1.0-6.0); PLATELET COUNT 294 10^3/uL (120.0-450.0); RED CELL DISTRIBUTION WIDTH 21.8 % (11.5-14.5); WHITE BLOOD COUNT 16.5 10^3/ul (4.5-11.0)
[2017-01-21 07:48] LABS: ALKALINE PHOSPHATASE 591 U/L (38-133); ALT/SGPT 57 U/L (7-56); AST/SGOT 95 U/L (15-59); BILIRUBIN,TOTAL 2.2 mg/dL (0.2-1.3); BLOOD UREA NITROGEN 14 mg/dL (7-21); CALCIUM 8.4 mg/dL (8.4-10.5); CARBON DIOXIDE 22 mmol/L (21-33); CHLORIDE 102 mmol/L (95-110); GFR AFRICAN-AMERICAN > 60; GLUCOSE,RANDOM 75 mg/dL (70-110); POTASSIUM 4.1 mmol/L (3.6-5.0); SODIUM 131 mmol/L (132-148); TOTAL PROTEIN 5.7 g/dL (5.8-8.3)
[2017-01-21] MEDS: diltiaZEM IVPB 100mg in NS 100 ML IV PRN ×2 (07:57→17:57)
[2017-01-21] MEDS ORDERED: diltiaZEM IVPB 100mg in NS 100 ML IV PRN ×2 (08:35→15:02)
[2017-01-21] MEDS: Verapamil 180 mg ER Tab PO SCH (09:45)
--- NOTE | 2017-01-21 09:57 | CARD ---
APPROVED REPORT EKG Measurement Heart [id number] <Conclusion> Atrial fibrillation with rapid ventricular response Right bundle branch block No change except the rate is slower
--- NOTE | 2017-01-21 10:03 | CARD ---
APPROVED REPORT EKG Measurement Heart [id number] <Conclusion> Atrial fibrillation with rapid ventricular response Right bundle branch block No chane except the rate is slower
--- NOTE | 2017-01-21 12:57 | HP ---
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 Levin) for evaluation of a 1-week history of exertional dyspnea and palpitations. The patient denied fevers, chills, rigors, or cough associated with the symptoms. Upon arrival to the ED, he wa s noted to be tachycardic with a pulse in the 150s. He was otherwise hemodynamically stable. An EKG demonstrated atrial fibrillation with rapid ventricular response. He was started on Cardizem drip a nd admitted to the telemetry mosley for continued management of atrial fibrillation with rapid ventricu lar response. PAST MEDICAL HISTORY: As per HPI. Also, tertiary syphilis, prostate cancer, peripheral vascular dis ease and history of Staphylococcus aureus bacteremia secondary to Port-A-Cath line sepsis. PAST SURGICAL HISTORY: As per HPI. ALLERGIES: No known drug allergies. MEDICATIONS: Atenolol 50 mg p.o. b.i.d., verapamil 180 mg p.o. daily, Eliquis 5 mg p.o. b.i.d. FAMILY HISTORY: Significant for hypertension and bladder cancer in his father. SOCIAL HISTORY: The patient reports a former [id number] smoking history, but quit in 1973. He rep orts social alcohol use and denies illicit drug abuse. REVIEW OF SYSTEMS: A 14-point is negative except as per HPI. PHYSICAL EXAMINATION: VITAL SIGNS: Temperature 97.9, pulse 130, blood pressure 120/91, respiratory rate 18, oxygen saturat ion 96% on room air. GENERAL: Elderly man, appearing his stated age, in no apparent distress. HEENT: PERRL. EOMI. No scleral icterus, no conjunctival pallor. NECK: Supple with full range of motion, no JVD, no bruits. LUNGS: Clear to auscultation. CARDIOVASCULAR: Tachycardic, irregularly irregular. ABDOMEN: Normoactive bowel sounds, soft, nontender, nondistended. EXTREMITIES: No edema. NEUROLOGIC: Awake, alert and oriented x 3. No focal motor deficits. LABORATORY DATA: WBCs 16.5 with 60% neutrophils, hemoglobin 11, hematocrit 35, platelets 294. Sodiu m 131, potassium 4.1, chloride 102, bicarb 22, BUN 14, creatinine 0.7, glucose 75. AST 95, ALT 57, a lk phos 591. Troponin less than 0.01. BNP 3750. ASSESSMENT: The patient is an 82-year-old man with multiple medical comorbidities including stage IV adenocarcinoma of the colon (with hepatic and pulmonary metastases), status post left hemicolectomy, hypertension, hyperlipidemia and recently diagnosed atrial fibrillation who presented to [facility] at the advice of his four corner former machine operator/oncologist (Dr. Levin) for evaluation of a 1-week his tory of fatigue, palpitations and exertional dyspnea and who was admitted for management of atrial fi brillation with rapid ventricular response. PLAN: 1. Atrial fibrillation with rapid ventricular response. The patient remains on a Cardizem drip, whi ch has been increased to 10 mg per hour. The patient has also been restarted his home medications, w hich consist if atenolol 50 mg p.o. b.i.d., and verapamil [address] Red of cardiology has been consulted for further evaluation and recommendations. Will continue with Eliquis 5 mg p.o. b.i.d. for anticoagulation. 2. Stage IV invasive adenocarcinoma of the colon, status post left hemicolectomy. The patient is cl osely followed by Dr. Levin on an outpatient basis. 3. Hypertension. Blood pressure controlled. Continue with medications as above. 4. Hyperlipidemia. Continue with Lipitor 40 mg p.o. daily. 5. Left iliac occlusive disease. Continue with Eliquis 5 mg p.o. b.i.d. and Lipitor 40 mg p.o. abdirizak y. 6. Tertiary syphilis. The patient is status post treatment with penicillin on his prior admission. 7. Prophylaxis. Gastrointestinal prophylaxis not indicated as patient is eating. The patient remai ns on Eliquis for his peripheral vascular disease. Thus, deep venous thrombosis prophylaxis not phill cated. CODE STATUS: DNR/DNI. Ghanshyam Franklin MD cc: [phone] TT: 01/21/2017 12:56:28 en
--- NOTE | 2017-01-21 18:59 | CON ---
DATE: 01/21/2017 Cardiology consultation (for Dr. Red). HISTORY OF PRESENT ILLNESS: The patient is an 82-year-old male who presents with rapid heart rate wh ile in the outpatient office. PAST MEDICAL HISTORY: Is notable for colon cancer. His cardiovascular system has been studied with an echocardiogram that shows good LV function. His peripheral vascular system was performed, which revealed peripheral vascular disease and thrombus in the iliacs in the past. In addition, the patient suffers from hypertension and has been on Eliquis. No previous myocardial infarction was noted. Echocardiogram performed in 05/2016 reveals good LV function with an EF of 54% with mild pulmonary hy pertension. SOCIAL HISTORY: The patient denies smoking. REVIEW OF SYSTEMS: A 14-point review of systems was reviewed in detail. No cardiac symptomatology i s noted. PHYSICAL EXAMINATION: VITAL SIGNS: Blood pressure 110/58, heart rate is now in the 50s after increasing the Cardizem to 10 mcg. NECK: Negative JVD. LUNGS: Without rales. HEART: Revealed S1, S2. EXTREMITIES: Without edema. LABORATORIES: BUN and creatinine is 14 and 0.7. Hemoglobin is 11.4 with a white count of 16.5. IMPRESSION: 1. Atrial fibrillation with rapid ventricular rate, which is improved with IV Cardizem. 2. History of metastatic colon cancer. 3. History of severe peripheral vascular disease. 4. Anemia. 5. Hypertension. Given these findings, will titrate the Cardizem to improve heart rate. Currently will decrease the I V Cardizem back to 5 mcg; will increase back to 7.5 if the heart rate continues to increase. Hugh Son MD cc: [id number] TT: 01/21/2017 18:58:53 Confirmation # [id number] Dictation # [id number] dn
--- NOTE | 2017-01-21 20:49 | CP.PCM.CON ---
History of Present Illness - History of Present Illness History of Present Illness: Mr. Small is an 82 y/o gonzalo with pmhx significatn for HTN, HLD, stage IV adeno ca of colon s/p left hemicolectomy now with hepatic and pulmonary mets on chemo who was referred from oncology office for afib with RVR in setting of 1 month history of increased MULLER and palpitations. Review of Systems - Constitutional Constitutional: As Per HPI - EENT Eyes: As Per HPI - Cardiovascular Cardiovascular: As Per HPI - Respiratory Respiratory: As Per HPI - Gastrointestinal Gastrointestinal: As Per HPI - Hematologic/Lymphatic Hematologic: As Per HPI Past Patient History - Infectious Disease Hx of Infectious Diseases: None - Past Social History Smoking Status: Former Smoker - CARDIAC Hx Cardiac Disorders: Yes Hx Hypertension: Yes Hx Peripheral Vascular Disease: Yes - PULMONARY Hx Respiratory Disorders: Yes (PLEURAL EFFUSION 12-11-16) Other/Comment: LUNG CA - NEUROLOGICAL Hx Neurological Disorder: No - HEENT Hx HEENT Problems: Yes Other/Comment: [place] WEARS B/L HEARING AIDS, WEARS EYEGLASSES (READING) - RENAL Hx Chronic Kidney Disease: No - ENDOCRINE/METABOLIC Hx Endocrine Disorders: No - HEMATOLOGICAL/ONCOLOGICAL Hx Blood Disorders: Yes Hx Cancer: Yes Hx Chemotherapy: Yes - INTEGUMENTARY Hx Dermatological Problems: Yes (COLOSTOMY) - MUSCULOSKELETAL/RHEUMATOLOGICAL Hx Musculoskeletal Disorders: No Hx Falls: No - GASTROINTESTINAL Hx Gastrointestinal Disorders: Yes (adenocarcinoma of the colon,METS TO LIVER, LUNG) Hx Diverticulitis: Yes - GENITOURINARY/GYNECOLOGICAL Hx Genitourinary Disorders: Yes Hx Prostate Problems: Yes (HX OF PROSTATE CA (RADIATION PROSTATE SEEDS)) - PSYCHIATRIC Hx Psychophysiologic Disorder: Yes (SMOKED CIGARETTES AND CIGARS QUIT 1974) Hx Anxiety: No Hx Substance Use: No - SURGICAL HISTORY Hx Surgeries: Yes Other/Comment: L HEMICOLECTOMY (COLOSTOMY IN PLACE) - ANESTHESIA Hx Anesthesia Reactions: No Hx Malignant Hyperthermia: No Meds Allergies/Adverse Reactions: Allergies Allergy/AdvReac Type Severity Reaction Status Date / Time No Known Allergies Allergy Verified 01/20/17 22:46 - Medications Medications: Current Medications Apixaban (Eliquis) 5 mg PO BID KRIS PRN Reason: Protocol Last Admin: 01/21/17 17:53 Dose: 5 mg Atenolol (Tenormin) 50 mg PO BID KRIS Last Admin: 01/21/17 17:53 Dose: 50 mg Atorvastatin Calcium (Lipitor) 40 mg PO DIN [facility] Last Admin: 01/21/17 17:55 Dose: 40 mg diltiaZEM IVPB 100mg in NS (Cardizem 100mg In Ns) 100 mls @ 5 mls/hr IV .Q20H PRN; Protocol; 5 MG/HR PRN Reason: TITRATE PER MD ORDER Last Admin: 01/21/17 17:57 Dose: 5 mg/hr, 5 mls/hr Verapamil HCl (Calan Sr Tab) 180 mg PO DAILY [facility] Last Admin: 01/21/17 09:45 Dose: 180 mg Physical Exam - Respiratory Exam Respiratory Exam: Clear to Auscultation Bilateral, NORMAL BREATHING PATTERN - Cardiovascular Exam Cardiovascular Exam: Irregular Rhythm. absent: Tachycardia - GI/Abdominal Exam GI & Abdominal Exam: Normal Bowel Sounds, Soft. absent: Tenderness - Extremities Exam Extremities exam: Positive for: normal inspection Results - Vital Signs Recent Vital Signs: Last Vital Signs Temp 98 F 01/21/17 18:00 Pulse 96 H 01/21/17 18:00 Resp 16 01/21/17 18:00 BP 119/70 01/21/17 18:00 Pulse Ox 96 01/20/17 16:20 - Labs Result Diagrams: 01/21/17 07:26 01/21/17 07:26 Labs: Laboratory Results - last 24 hr 01/21/17 01/21/17 07:26 07:26 WBC 16.5 H RBC 4.32 Hgb 11.4 L Hct 34.9 L MCV 80.8 MCH 26.4 MCHC 32.7 RDW 21.8 H Plt Count 294 MPV 9.2 Gran % 60.6 Lymph % (Auto) 25.3 [place] % (Auto) 13.3 H Eos % (Auto) 0.6 L Baso % (Auto) 0.2 Gran # 9.99 H Lymph # 4.2 H [place] # 2.2 H Eos # 0.1 Baso # 0.03 Sodium 131 L Potassium 4.1 Chloride 102 Carbon Dioxide 22 Anion Gap 11 BUN 14 Creatinine 0.7 Est GFR ( Amer) > 60 Est GFR (Non-Af Amer) > 60 Random Glucose 75 Calcium 8.4 Total Bilirubin 2.2 H AST 95 H ALT 57 H Alkaline Phosphatase 591 H Total Protein 5.7 L Albumin 2.9 L Globulin 2.8 Albumin/Globulin Ratio 1.0 L Assessment & Plan - Assessment and Plan (Free Text) Assessment: Mr. Small is an 82 y/o gonzalo with pmhx significatn for HTN, HLD, stage IV adeno ca of colon s/p left hemicolectomy now with hepatic and pulmonary mets on chemo who was referred from oncology office for afib with RVR in setting of 1 month history of increased MULLER and palpitations. Patient now rate controlled per primary team on cardizem gtt and to be bridged with verapamil. Continue anticoagulation given previous DVT. Agree with management with primary team Rakan Levin MD Oncology Service
[2017-01-22] MEDS: diltiaZEM IVPB 100mg in NS 100 ML IV PRN (05:47)
[2017-01-22 07:21] LABS: ADD MANUAL DIFF? NO
[2017-01-22 07:33] LABS: BASO # 0.03 K/mm3 (0.0-2.0); BASO % 0.2 % (0.0-3.0); EOS # 0.1 (0.0-0.7); EOS % 0.3 % (1.5-5.0); GRAN # 11.07 (1.4-6.5); GRAN % 72.4 % (50.0-68.0); HEMATOCRIT 34.8 % (42.0-52.0); LYMPH # 2.5 (1.2-3.4); LYMPH % 16.6 % (22.0-35.0); MEAN CELL VOLUME 80.7 fL (80.0-105.0); MEAN CORPUSCULAR HEMOGLOBIN 26.2 pg (25.0-35.0); MEAN CORPUSCULAR HGB CONC 32.5 g/dl (31.0-37.0); MEAN PLATELET VOLUME 9.5 fl (7.0-11.0); MONO # 1.6 (0.1-0.6); MONO % 10.5 % (1.0-6.0); PLATELET COUNT 300 10^3/uL (120.0-450.0); WHITE BLOOD COUNT 15.3 10^3/ul (4.5-11.0)
[2017-01-22 07:45] LABS: ALKALINE PHOSPHATASE 517 U/L (38-133); ALT/SGPT 67 U/L (7-56); AST/SGOT 217 U/L (15-59); BLOOD UREA NITROGEN 17 mg/dL (7-21); CARBON DIOXIDE 21 mmol/L (21-33); CHLORIDE 100 mmol/L (98-107); GFR AFRICAN-AMERICAN > 60; GLUCOSE,RANDOM 77 mg/dL (70-110); POTASSIUM 4.3 mmol/L (3.6-5.0); SODIUM 130 mmol/L (132-148); TOTAL PROTEIN 5.7 g/dL (5.8-8.3)
[2017-01-22] MEDS: Verapamil 180 mg ER Tab PO SCH ×2 (08:50→11:04)
--- NOTE | 2017-01-22 10:31 | PN ---
DATE: 01/22/2017 SUBJECTIVE: The patient seen and examined at bedside on the telemetry mosley. No acute events overnig ht. He remains afebrile and with improved heart rate since increasing his Cardizem to 10 mg per hour . The patient has been evaluated by Dr. Son and given episodes of bradycardia with a heart rate in the 50s, the Cardizem drip was lowered back to 5 mg per hour. This morning, the patient states he fe els okay and his sole complaint is that of swelling to his feet, which is causing him mild discomfort . OBJECTIVE: VITAL SIGNS: Temperature 97.9, pulse 75, blood pressure 141/79, respiratory rate 20, oxygen saturati on 95% on room air. GENERAL: Elderly man, appearing his stated age, lying comfortably in bed, in no apparent distress. HEENT: PERRL, EOMI. No scleral icterus. No conjunctival pallor. NECK: Supple with full range of motion, no JVD. LUNGS: Clear to auscultation. CARDIOVASCULAR: Irregularly irregular. Normal S1 and S2. ABDOMEN: Normoactive bowel sounds, soft, nontender, nondistended, viable ostomy with site appearing clean, dry and intact. EXTREMITIES: Trace bilateral lower extremity edema to mid [place]. NEUROLOGIC: Awake, alert and oriented x 3. No focal motor deficits. LABORATORY DATA: WBC 15.3 with 72% neutrophils, hemoglobin 11, hematocrit 35, platelets 300. Sodium 131, potassium 4.3, chloride 100, bicarb 21, BUN 17, creatinine 0.7, glucose 77. ASSESSMENT: The patient is an 82-year-old man with multiple medical comorbidities including stage IV adenocarcinoma of the colon (with hepatic and pulmonary metastases), status post left hemicolectomy, hypertension, hyperlipidemia and recently diagnosed atrial fibrillation who presented to [facility] at the advice of his solid die cutter/oncologist (Dr. Levin) for evaluation of a 1-week his tory of fatigue, palpitations and exertional dyspnea, and who was admitted to the telemetry mosley for management of atrial fibrillation with rapid ventricular response. PLAN: 1. Atrial fibrillation with rapid ventricular response, improving. Input from Dr. Son noted and ap preciated and the patient's Cardizem drip has been lowered to 5 mg per hour. The patient has been re started on atenolol 50 mg p.o. b.i.d. and verapamil 180 mg p.o. daily. Continue with Eliquis 5 mg p. o. b.i.d. for anticoagulation. Will discuss with Dr. Red regarding possible adjustment in home medi cations given the patient's presentation with fibrillation with rapid ventricular response. 2. Hypertension. Blood pressure controlled. Continue with current medications. 3. Hyperlipidemia. Continue with Lipitor 40 mg p.o. daily. 4. Stage IV invasive adenocarcinoma of the colon, status post left hemicolectomy. Input from Dr. Sade boateng noted and appreciated. Continue with current care as per Dr. Levin. 5. Left iliac vasoocclusive disease. Continue with Eliquis 5 mg p.o. b.i.d. and Lipitor 40 mg p.o. daily. 6. Tertiary syphilis. The patient is status post treatment course with aqueous penicillin. 7. Prophylaxis. Gastrointestinal prophylaxis not indicated as patient is eating. The patient remai ns on Eliquis for his peripheral vascular disease and atrial fibrillation. Thus, deep venous thrombo sis prophylaxis not indicated. CODE STATUS: DNR/DNI. Ghanshyam Franklin MD cc: [phone] TT: 01/22/2017 10:30:24 Confirmation # [id number] Dictation # [id number] en
[2017-01-22] MEDS ORDERED: Digoxin 500 mcg/2ml (0.5 mg/2ml) Inj IVP ONE ×2 (15:51→20:00)
--- NOTE | 2017-01-22 16:16 | PN ---
DATE: 01/22/2017 REASON FOR CONSULTATION: AFib with rapid ventricular rate. BRIEF CLINICAL HISTORY: This is an 82-year-old male with a past medical history significant for colo n cancer and chemotherapy, found in AFib since 09/2016. Admitted with rapid ventricular rate, on Card izem. The patient denies any chest pain, shortness of breath. Heart rate still not well controlled. PHYSICAL EXAMINATION: VITAL SIGNS: Temperature afebrile, heart rate , blood pressure 128/83. HEENT: PERRLA. Extraocular muscles intact. NECK: Supple. No carotid bruits. No thyromegaly. CHEST: Clear to auscultation. HEART: S1, S2 regular. ABDOMEN: Soft. EXTREMITIES: Clubbing, cyanosis negative. WBC 15.3, hemoglobin 11.3, hematocrit 34.8, platelet count 300. Chemistry shows sodium 130, pot[place] m 4.3, chloride 100, carbon dioxide 17, anion gap of 13, BUN 21, creatinine 0.7. IMPRESSION: Atrial fibrillation with rapid ventricular rate, protein-calorie malnutrition which was present on admission, anemia, leukocytosis, atrial fibrillation with rapid ventricular rate, atrial f ibrillation since 09/2016, history of colon cancer with metastasis, right hemicolectomy, pulmonary met astasis, shortness of breath, multifactorial, secondary to pulmonary metastasis as well as atrial fib rillation with rapid ventricular rate. RECOMMENDATION: Start Cardizem. We will start verapamil. Give 2.5 verapamil IV. Give 2 doses of d igoxin. Resume back Eliquis. Rate is well controlled. Discontinue Cardizem. Will start low-dose b eta-madhu. Thank you, Dr. Levin, for providing us the opportunity in taking care of the patient. The patient had echocardiography done 05/22/2016 that showed ejection fraction 55%, no definite vegetation. That was on transesophageal echocardiogram, rule out vegetation. Will follow with you. Constantine Red MD cc: [id number] TT: 01/22/2017 16:15:33 Confirmation # [id number] Dictation # [id number] en
[2017-01-22 21:49] VITALS: PULSE 88
[2017-01-23 01:22] VITALS: O2SAT 96
[2017-01-23 06:00] LABS: ADD MANUAL DIFF? NO
[2017-01-23 06:06] LABS: BASO # 0.02 K/mm3 (0.0-2.0); BASO % 0.1 % (0.0-3.0); EOS % 0.2 % (1.5-5.0); GRAN # 13.87 (1.4-6.5); GRAN % 75.7 % (50.0-68.0); HEMATOCRIT 35.2 % (42.0-52.0); LYMPH # 2.3 (1.2-3.4); LYMPH % 12.6 % (22.0-35.0); MEAN CELL VOLUME 80.2 fL (80.0-105.0); MEAN CORPUSCULAR HEMOGLOBIN 26.4 pg (25.0-35.0); MEAN PLATELET VOLUME 9.1 fl (7.0-11.0); MONO # 2.1 (0.1-0.6); MONO % 11.4 % (1.0-6.0); PLATELET COUNT 256 10^3/uL (120.0-450.0); RED CELL DISTRIBUTION WIDTH 21.8 % (11.5-14.5); WHITE BLOOD COUNT 18.3 10^3/ul (4.5-11.0)
[2017-01-23 06:42] VITALS: RESP 20
[2017-01-23 06:59] LABS: ALB/GLOB RATIO 0.9 (1.1-1.8); ALKALINE PHOSPHATASE 480 U/L (38-133); ALT/SGPT 66 U/L (7-56); AST/SGOT 224 U/L (15-59); BILIRUBIN,TOTAL 2.9 mg/dL (0.2-1.3); BLOOD UREA NITROGEN 19 mg/dL (7-21); CALCIUM 8.2 mg/dL (8.4-10.5); CARBON DIOXIDE 20 mmol/L (21-33); CHLORIDE 100 mmol/L (98-107); GFR AFRICAN-AMERICAN > 60; GLUCOSE,RANDOM 73 mg/dL (70-110); POTASSIUM 4.2 mmol/L (3.6-5.0); SODIUM 130 mmol/L (132-148); TOTAL PROTEIN 5.5 g/dL (5.8-8.3)
[2017-01-23] MEDS: Verapamil 180 mg ER Tab PO SCH (09:51)
--- NOTE | 2017-01-23 10:35 | PN ---
DATE: 01/23/2017 SUBJECTIVE: The patient seen and examined at bedside on the telemetry mosley. No acute events overnig ht. He remains afebrile and hemodynamically stable. This morning, the patient reports some improvem ent in his lower extremity edema, status post administration of intravenous Lasix. Otherwise, he sta lily he feels well and is looking forward to going home. OBJECTIVE: VITAL SIGNS: Temperature 97.4, pulse 100, blood pressure 132/70, respiratory rate 20, oxygen saturat ion 96% on room air. GENERAL: No apparent distress. HEENT: PERRL, EOMI. No scleral icterus. No conjunctival pallor. NECK: Supple with full range of motion, no JVD. LUNGS: Clear to auscultation. CARDIOVASCULAR: Irregularly irregular. Normal S1 and S2. ABDOMEN: Normoactive bowel sounds, soft, nontender, nondistended. Ostomy site appears clean, dry an d intact. EXTREMITIES: Trace bilateral lower extremity edema to mid estrada. NEUROLOGIC: Awake, alert and oriented x 3. No focal motor deficits. LABORATORY DATA: WBC 18.3 with 75% neutrophils, hemoglobin 11, hematocrit 35, platelets 256. Chemis try reviewed and largely unremarkable. 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 PLAN: 1. Atrial fibrillation with rapid ventricular response, resolved. Input from Dr. Red noted and divya reciated. The patient is maintained on atenolol 50 mg p.o. b.i.d. and verapamil 180 mg p.o. daily. He is also on Eliquis 5 mg p.o. b.i.d. for anticoagulation. 2. Hypertension. Blood pressure controlled. Continue with current medications. 3. Hyperlipidemia. Continue with Lipitor at 40 mg p.o. daily. 4. Stage IV invasive adenocarcinoma of the colon, status post left hemicolectomy. Continue with car e as per Dr. Levin. 5. Left iliac vasoocclusive disease. Continue with Eliquis 5 mg p.o. b.i.d. and Lipitor at 40 mg p. o. daily. 6. History of tertiary syphilis. The patient is status post treatment course of aqueous penicillin. 7. Prophylaxis. GI prophylaxis not indicated as the patient is eating. The patient remains on Eliq uis for his PVD and atrial fibrillation; thus, DVT prophylaxis not indicated. 8. Disposition: The patient for discharge to home today. CODE STATUS: DNR/DNI. Ghanshyam Franklin MD cc: [id number] TT: 01/23/2017 10:34:57 Confirmation # [id number] Dictation # [id number] tn
--- NOTE | 2017-01-23 10:58 | PN ---
DATE: 01/23/2017 REASON FOR CONSULTATION AND FOLLOWUP: AFib with rapid ventricular rate, now stable. BRIEF CLINICAL HISTORY: This is an 82-year-old male with past medical history significant for colon cancer and ____found in AFib since 09/2016. Admitted with rapid ventricular rate, on Cardizem. Yest erday switched over to p.o. verapamil. Digoxin was given. The patient's heart rate is stable. PHYSICAL EXAMINATION: VITAL SIGNS: Temperature afebrile, heart rate 92, blood pressure 132/70. HEENT: PERRLA. Extraocular muscles intact. NECK: Supple. No carotid bruits or thyromegaly. CHEST: Clear to auscultation. HEART: S1, S2 regular. ABDOMEN: Soft. EXTREMITIES: Clubbing and cyanosis negative. BLOOD WORKUP: As follows: WBC 18.3, hemoglobin 11.____, hematocrit 35.2, platelet count 256. Chemi stry shows sodium 130, potassium 4.2, chloride 100, carbon dioxide 20, anion gap of 14, BUN 19, creat inine 0.8. IMPRESSION: Atrial fibrillation with rapid ventricular rate, now is relatively controlled; atrial fi brillation, chronic; protein-calorie malnutrition which was present on admission, leukocytosis, atria l fibrillation since 09/2016; history of colon cancer metastasis, right hemicolectomy, pulmonary meta stasis; shortness of breath, multifactorial, secondary to pulmonary metastasis as well as atrial fibr illation. RECOMMENDATION: Continue verapamil, continue digoxin 1 dose, continue gentle Lasix, continue atorvas tatin, continue atenolol, continue apixaban. Will follow with you. Will give 1 more dose of digoxin . Will follow with you. Thank you, Dr. Ghanshyam Franklin, for providing the opportunity in taking care of the patient. Constantine Red MD cc: [id number] TT: 01/23/2017 10:57:35 Confirmation # [id number] Dictation # [id number] mn
[2017-01-23 11:49] VITALS: BP 122/70; PULSE 98; TEMP 97.7
--- NOTE | 2017-01-24 09:27 | DS ---
ADMITTING DIAGNOSIS: Atrial fibrillation with rapid ventricular response. DISCHARGE DIAGNOSIS: Atrial fibrillation. SECONDARY DIAGNOSES: Stage IV invasive adenocarcinoma of the colon, status post left hemicolectomy ( with hepatic and pulmonary metastases), hypertension, hyperlipidemia, tertiary syphilis (status post treatment course of aqueous penicillin) and peripheral vascular disease. CONSULTANTS: Dr. Red (cardiology), Dr. Levin (hematology/oncology). IMAGING STUDIES: Chest x-ray which demonstrated no active disease. HISTORY OF PRESENT ILLNESS: The patient is an 82-year-old man with past medical history of stage IV invasive adenocarcinoma of the colon, status post left hemicolectomy (with hepatic and pulmonary meta stases), hypertension, hyperlipidemia and recently diagnosed atrial fibrillation, who presented to [facility] Emergency Department for evaluation of a 1-week history of exertional dyspnea an d palpitations. The patient denied fevers, chills, rigors, or cough associated with his symptoms. [place] arrival to the ED, he was noted to be tachycardic with a pulse in the 150s and the EKG demonstrat ed atrial fibrillation with rapid ventricular response. The patient was otherwise hemodynamically st able. He was started on Cardizem drip and subsequently admitted to the telemetry mosley for continued management of atrial fibrillation with rapid ventricular response. HOSPITAL COURSE: Upon admission to the telemetry mosley, the patient was noted to be persistently tach ycardic with a pulse rate in the 150s to 170s range. His Cardizem drip was increased to 10 mg per ho ur with subsequent resolution of his rapid ventricular rate. Over the following 24-36 hours, the pat ient was restarted on his home medications which consisted of verapamil 180 mg p.o. daily, atenolol 5 0 mg p.o. b.i.d. and Eliquis 5 mg p.o. b.i.d. He was noted to be rate controlled during the remainde r of his hospital stay and by hospital day #3, he was deemed stable for discharge to home. CONDITION: Fair, improved. DISPOSITION: To home. DISCHARGE MEDICATIONS: Atenolol 50 mg p.o. b.i.d., verapamil 180 mg p.o. daily, Eliquis 5 mg p.o. b. i.d. DISCHARGE INSTRUCTIONS: The patient was advised that, if he has any recurrence of his symptoms or an y development of palpitations, chest pain, dyspnea, orthopnea or near syncope, to present to his PMD or to the nearest Emergency Department immediately. FOLLOWUP: The patient to follow up with his PMD within 1 week of discharge. The patient to follow u p with Dr. Levin as scheduled. Ghanshyam Franklin MD cc: [phone] TT: 01/24/2017 09:27:12 tn
== END 2017-01-23 13:13 | disposition home or self-care (01) | DRG 309 ==
LOC: ED 14:20 → ERH 15:27 → 2RSO 17:56
PROVIDERS: ADMIT Student in an Organized Health Care Education/Training Program; ATTEND Student in an Organized Health Care Education/Training Program
DX: I48.91 Unspecified atrial fibrillation (principal); C78.7 Secondary malignant neoplasm of liver and intrahepatic bile duct; C78.00 Secondary malignant neoplasm of unspecified lung; E46 Unspecified protein-calorie malnutrition; A52.9 Late syphilis, unspecified; C18.9 Malignant neoplasm of colon, unspecified; I10 Essential (primary) hypertension; E78.5 Hyperlipidemia, unspecified; I73.9 Peripheral vascular disease, unspecified; Z66 Do not resuscitate; Z79.01 Long term (current) use of anticoagulants; D64.9 Anemia, unspecified; Z93.3 Colostomy status; Z85.46 Personal history of malignant neoplasm of prostate; Z90.49 Acquired absence of other specified parts of digestive tract; Z86.718 Personal history of other venous thrombosis and embolism; Z87.891 Personal history of nicotine dependence

== ENCOUNTER 2017-02-05 08:33 | Emergency (ER) | payer MEDICARE, MEDICAID, OTHER ==
[2017-02-05 08:33] VITALS: PULSE 88; BMI 31.6
[2017-02-05] MEDS ORDERED: Oxymetazoline 0.05% Nasal Spray (30 ml) NS STA (08:41)
[2017-02-05 08:49] VITALS: TEMP 97.1
--- NOTE | 2017-02-05 08:54 | ED PDOC ---
Arrival/HPI - General Time Seen by Provider: 02/05/17 08:36 Historian: Patient - History of Present Illness Narrative History of Present Illness (Text): 02/05/17 08:41 82 year old male whose past medical history includes hypertension, hypercholesterolemia, atrial fibrillation, and colon CA presents to the emergency department with nosebleed that began suddenly this morning. He states he blew his nose and it suddenly began to bleed. Denies fall. No recent cold or fever. Patient states this happened a few years ago and had it cauterized. PMD: Dr. Ghanshyam Franklin Time/Duration: 1-3 hours Symptom Onset: Sudden Symptom Course: Unchanged Modifying Factors (Text): None Past Medical History - Provider Review Nursing Documentation Reviewed: Yes - Infectious Disease Hx of Infectious Diseases: None - Cardiac Hx Cardiac Disorders: Yes Hx Hypertension: Yes Hx Peripheral Vascular Disease: Yes - Pulmonary Hx Respiratory Disorders: Yes (PLEURAL EFFUSION 12-11-16) Other/Comment: LUNG CA - Neurological Hx Neurological Disorder: No - HEENT Hx HEENT Disorder: Yes Other/Comment: [place] WEARS B/L HEARING AIDS, WEARS EYEGLASSES (READING) - Renal Hx Renal Disorder: No - Endocrine/Metabolic Hx Endocrine Disorders: No - Hematological/Oncological Hx Blood Disorders: Yes Hx Cancer: Yes Hx Chemotherapy: Yes - Integumentary Hx Dermatological Disorder: Yes (COLOSTOMY) - Musculoskeletal/Rheumatological Hx Musculoskeletal Disorders: No Hx Falls: No - Gastrointestinal Hx Gastrointestinal Disorders: Yes (adenocarcinoma of the colon,METS TO LIVER, LUNG) Hx Diverticulitis: Yes - Genitourinary/Gynecological Hx Genitourinary Disorders: Yes Hx Prostate Problems: Yes (HX OF PROSTATE CA (RADIATION PROSTATE SEEDS)) - Psychiatric Hx Psychophysiologic Disorder: Yes (SMOKED CIGARETTES AND CIGARS QUIT 1973) Hx Anxiety: No Hx Substance Use: No - Surgical History Other/Comment: L HEMICOLECTOMY (COLOSTOMY IN PLACE) - Anesthesia Hx Anesthesia Reactions: No Hx Malignant Hyperthermia: No - Suicidal Assessment Feels Threatened In Home Enviroment: No Family/Social History - Physician Review Nursing Documentation Reviewed: Yes Family/Social History: Unknown Family HX Smoking Status: Former Smoker Hx Alcohol Use: No Hx Substance Use: No Allergies/Home Meds Allergies/Adverse Reactions: Allergies No Known Allergies Allergy (Verified 02/05/17 08:49) Home Medications: Home Meds Medication Instructions Recorded Confirmed Atenolol [Tenormin] 50 mg PO BID 01/25/17 01/25/17 Furosemide [Lasix] 40 mg PO DAILY 01/25/17 01/25/17 Verapamil [Verapamil HCl] 180 mg PO DAILY 01/25/17 01/25/17 Review of Systems - Physician Review All systems were reviewed & negative as marked: Yes - Review of Systems Constitutional: absent: Fevers ENT: Epistaxis. absent: Sinus Congestion Respiratory: absent: Cough Musculoskeletal: absent: Arthralgias, Back Pain Physical Exam Vital Signs Reviewed: Yes Vital Signs Temp Pulse Resp BP Pulse Ox 02/05/17 12:30 90 17 130/96 H 96 02/05/17 09:45 72 16 127/98 H 97 02/05/17 08:46 97.1 F L 118 H 18 143/100 H 95 Temperature: Afebrile Blood Pressure: Hypertensive Pulse: Tachycardic Respiratory Rate: Normal Appearance: Positive for: Well-Appearing, Non-Toxic, Comfortable Pain Distress: None Mental Status: Positive for: Alert and Oriented X 3 Medical Decision Making ED Course and Treatment: Impression: 82 year old male whose past medical history includes hypertension, hypercholesterolemia, atrial fibrillation, and colon CA presents to the emergency department with nosebleed that began suddenly this morning. Differential Diagnosis included but are not limited to: Nose Bleed on Eliquis Plan: -- Afirin, Lidocaine -- Labs -- Reassess and disposition Prior Visits: Notes and results from previous visits were reviewed. Patient last seen in the ED on 01/20/17 for dyspnea on exertion and admitted for Atrial fibrillation with RVR, Dyspnea on exertion. Progress Notes: PROCEDURE: EPISTAXIS MANAGEMENT Performed by the emergency provider Consent: Informed consent was obtained after discussion of the risks, benefits, and alternatives to the procedure. Timeout: A timeout to verify the correct patient, procedure, and site was performed immediately prior to the procedure. Indication: Nasal bleeding control Location: Left naris Medication: Afirin, 2% Licodaine without Epi to control bleeding, which improved the bleeding Bleeding Source: Posterior Cautery: Used Silver nitrate to cauterize area of bleeding, but continued to bleed Packin.5 posterior packing to the left Post-procedure: Good hemostasis. The patient was observed following procedure and no repeat episode of bleeding was noted. Patient tolerated the procedure well with no immediate complications. 02/05/17 10:14 Labs reviewed. WBC elevated. Patient's WBC are normally this high and he is getting treatment by Dr. Levin. Dr. Levin called and I discussed with justin. Patient's colostomy bag had some noted blood. I discussed this with Dr. Jorje Franklin who knows patient. He states that patient has intermittent bleeding from the bag and he can see him tomorrow for a repeat hemoglobin and f/u. Patient denies any abdominal pain, lightheadedness or dizziness. On reevaluation, bleeding has stopped. Instructed patient to avoid blowing his nose forcefully and to stop eliquis for 2 days. Instructed patient to follow up with ENT and PMD. Patient agrees with plan. - Lab Interpretations Lab Results: 02/05/17 08:50 02/05/17 08:50 Lab Results 02/05/17 08:50: Sodium 132, Potassium 4.0, Chloride 102, Carbon Dioxide 20 L, Anion Gap 14, BUN 17, Creatinine 0.8, Est GFR ( Amer) > 60, Est GFR (Non- Af Amer) > 60, Random Glucose 95, Calcium 8.0 L 02/05/17 08:50: PT 13.0 H, INR 1.20 H, APTT 29.2 02/05/17 08:50: WBC 20.8 H D, RBC 4.40, Hgb 11.8 L, Hct 36.2 L, MCV 82.3, MCH 26.8, MCHC 32.6, RDW 21.7 H, Plt Count 353, MPV 9.1, Gran % 56.9, Lymph % (Auto ) 29.8, Coles % (Auto) 12.4 H, Eos % (Auto) 0.7 L, Baso % (Auto) 0.2, Gran # 11.84 H, Lymph # 6.2 H, Coles # 2.6 H, Eos # 0.1, Baso # 0.04 - Medication Orders Current Medication Orders: Discontinued Medications Amoxicillin/Clavulanate Potassium (Augmentin 875 Mg-125 Mg Tab) 1 tab PO STAT STA PRN Reason: Protocol Stop: 02/05/17 10:12 Last Admin: 02/05/17 10:34 Dose: 1 tab Lidocaine HCl (Lidocaine 2% 20ml Vial) 1 ml SC ONCE STA Stop: 02/05/17 08:42 Last Admin: 02/05/17 09:23 Dose: Oxymetazoline HCl (Afrin 0.05%) 1 ml NS STAT STA Stop: 02/05/17 08:42 Last Admin: 02/05/17 09:10 Dose: 1 spr Comments: given by Dr Rm Silver Nitrate (Silver Nitrate Topical Stick) 1 swa TOP ONCE ONE Stop: 02/05/17 09:27 Last Admin: 02/05/17 09:35 Dose: - Scribe Statement The provider has reviewed the documentation as recorded by the Kei García Provider Scribe Attestation: All medical record entries made by the Marcibe were at my direction and personally dictated by me. I have reviewed the chart and agree that the record accurately reflects my personal performance of the history, physical exam, medical decision making, and the department course for this patient. I have also personally directed, reviewed, and agree with the discharge instructions and disposition. Disposition/Present on Arrival - Present on Arrival Any Indicators Present on Arrival: No History of DVT/PE: No History of Uncontrolled Diabetes: No Urinary Catheter: No History Surgical Site Infection Following: None - Disposition Have Diagnosis and Disposition been Completed?: Yes Diagnosis: Bleeding nose Disposition: HOME/ ROUTINE Disposition Time: 10:14 Patient Plan: Discharge Condition: IMPROVED Discharge Instructions (ExitCare): Nosebleed (ED) Additional Instructions: Mr Davey, thank you for letting us take care of you today. Your provider was Dr. Rm. You were treated for Nose bleed. The emergency medical care you received today was directed at your acute symptoms. If you were prescribed any medication, please fill it and take as directed. It may take several days for your symptoms to resolve. Return to the Emergency Department if your symptoms worsen, do not improve, or if you have any other problems. Please contact your doctor or call one of the physicians/clinics you have been referred to that are listed on the Patient Visit Information form that is included in your discharge packet. Bring any paperwork you were given at discharge with you along with any medications you are taking to your follow up visit. Our treatment cannot replace ongoing medical care by a primary care provider (PCP) outside of the emergency department. Thank you for allowing the [facility] [employer] team to be part of your care today. If you had an X-Ray or CT scan: A Radiologist will review the ED reading if any change in treatment is needed we will contact you. If you had a blood, urine, or wound culture: It will take several days for the results, if any change in treatment is needed we will contact you. If you had an STI test: It will take 48 hours for the results. Please call after 1 week if you have not heard back. Prescriptions: Amoxicillin/Clavulanate [Augmentin 875 MG-125 MG] 1 tab PO BID #14 tab Referrals: Noemi MACHUCA,Ghanshyam Prado MD [Primary Care Provider] - Follow up with primary Hamilton Guidry DO [[facility]] - Follow up with primary Forms: [employer] (Maltese)
[2017-02-05 08:57] LABS: ADD MANUAL DIFF? NO
[2017-02-05 09:04] LABS: BASO # 0.04 K/mm3 (0.0-2.0); BASO % 0.2 % (0.0-3.0); EOS # 0.1 (0.0-0.7); EOS % 0.7 % (1.5-5.0); GRAN # 11.84 (1.4-6.5); GRAN % 56.9 % (50.0-68.0); HEMATOCRIT 36.2 % (42.0-52.0); LYMPH # 6.2 (1.2-3.4); LYMPH % 29.8 % (22.0-35.0); MEAN CELL VOLUME 82.3 fL (80.0-105.0); MEAN CORPUSCULAR HEMOGLOBIN 26.8 pg (25.0-35.0); MEAN CORPUSCULAR HGB CONC 32.6 g/dl (31.0-37.0); MEAN PLATELET VOLUME 9.1 fl (7.0-11.0); MONO # 2.6 (0.1-0.6); MONO % 12.4 % (1.0-6.0); PLATELET COUNT 353 10^3/uL (120.0-450.0); RED CELL DISTRIBUTION WIDTH 21.7 % (11.5-14.5); WHITE BLOOD COUNT 20.8 10^3/ul (4.5-11.0)
[2017-02-05] MEDS: Lidocaine 2% Inj (20ml) SC STA ×2 (09:10→09:23)
[2017-02-05 09:11] LABS: BLOOD UREA NITROGEN 17 mg/dL (7-21); CARBON DIOXIDE 20 mmol/L (21-33); CHLORIDE 102 mmol/L (98-107); GFR AFRICAN-AMERICAN > 60; GLUCOSE,RANDOM 95 mg/dL (70-110); SODIUM 132 mmol/L (132-148)
[2017-02-05 09:14] LABS: INR 1.2 (0.93-1.08); PARTIAL THROMBOPLASTIN TIME 29.2 Seconds (23.7-30.8)
[2017-02-05] MEDS ORDERED: Silver Nitrate Topical - Stick TOP ONE (09:26)
[2017-02-05] MEDS ORDERED: Amoxicillin-Clav 875-125 mg Tab PO STA (10:11)
[2017-02-05 13:02] VITALS: BP 130/96; PULSE 90; RESP 17; O2SAT 96
== END 2017-02-05 12:30 | disposition home or self-care (01) ==
LOC: ED 08:33
DX: R04.0 Epistaxis (principal); I10 Essential (primary) hypertension; E78.00 Pure hypercholesterolemia, unspecified; I48.91 Unspecified atrial fibrillation; Z87.891 Personal history of nicotine dependence

== ENCOUNTER 2017-02-06 22:36 | Inpatient (IN) | payer MEDICARE, OTHER ==
[2017-02-06 22:36] VITALS: BMI 31.6
--- NOTE | 2017-02-06 23:06 | ED PDOC ---
Arrival/HPI - General Time Seen by Provider: 02/06/17 22:54 Historian: Patient - History of Present Illness Narrative History of Present Illness (Text): 02/06/17 23:06 Davidson Davey is an 82 year old male, whose past medical history includes atrial fibrillation, colon cancer, hypertension, and hyperlipidemia, who presents to the ED complaining of epistaxis tonight. Patient states he was seen in the ED for the same complaint, had packing placed, and discharged home. Patient states he had the packing removed this morning by his PMD but bleeding started again tonight. Patient was instructed to hold his Eliquis for 2 days. Patient denies any fever, chills, chest pain, shortness of breath, abdominal pain, nausea, vomiting, diarrhea, back pain, neck pain, headache, dizziness, or any other complaints. PMD: Dr. Franklin Time/Duration: Other (tonight) Symptom Onset: Gradual Symptom Course: Unchanged Activities at Onset: Rest, Light Context: Home Past Medical History - Provider Review Nursing Documentation Reviewed: Yes - Infectious Disease Hx of Infectious Diseases: None - Cardiac Hx Cardiac Disorders: Yes Hx Hypertension: Yes Hx Peripheral Vascular Disease: Yes - Pulmonary Hx Respiratory Disorders: Yes (PLEURAL EFFUSION 12-11-16) Other/Comment: LUNG CA - Neurological Hx Neurological Disorder: No - HEENT Hx HEENT Disorder: Yes Other/Comment: TELIDA WEARS B/L HEARING AIDS, WEARS EYEGLASSES (READING) - Renal Hx Renal Disorder: No - Endocrine/Metabolic Hx Endocrine Disorders: No - Hematological/Oncological Hx Blood Disorders: Yes Hx Cancer: Yes Hx Chemotherapy: Yes - Integumentary Hx Dermatological Disorder: Yes (COLOSTOMY) - Musculoskeletal/Rheumatological Hx Musculoskeletal Disorders: No Hx Falls: No - Gastrointestinal Hx Gastrointestinal Disorders: Yes (adenocarcinoma of the colon,METS TO LIVER, LUNG) Hx Diverticulitis: Yes - Genitourinary/Gynecological Hx Genitourinary Disorders: Yes Hx Prostate Problems: Yes (HX OF PROSTATE CA (RADIATION PROSTATE SEEDS)) - Psychiatric Hx Psychophysiologic Disorder: Yes (SMOKED CIGARETTES AND CIGARS QUIT 1973) Hx Anxiety: No Hx Substance Use: No - Surgical History Other/Comment: L HEMICOLECTOMY (COLOSTOMY IN PLACE) - Anesthesia Hx Anesthesia Reactions: No Hx Malignant Hyperthermia: No - Suicidal Assessment Feels Threatened In Home Enviroment: No Family/Social History - Physician Review Nursing Documentation Reviewed: Yes Family/Social History: Unknown Family HX Smoking Status: Former Smoker Hx Alcohol Use: No Hx Substance Use: No Allergies/Home Meds Allergies/Adverse Reactions: Allergies No Known Allergies Allergy (Verified 02/05/17 08:49) Home Medications: Home Meds Medication Instructions Recorded Confirmed Atenolol [Tenormin] 50 mg PO BID 01/25/17 02/07/17 Furosemide [Lasix] 40 mg PO DAILY 01/25/17 02/07/17 Verapamil [Verapamil HCl] 180 mg PO DAILY 01/25/17 02/07/17 Review of Systems - Physician Review All systems were reviewed & negative as marked: Yes - Review of Systems Constitutional: Normal. absent: Fevers Eyes: Normal ENT: Epistaxis Respiratory: Normal. absent: SOB, Cough Cardiovascular: Normal. absent: Chest Pain Gastrointestinal: Normal. absent: Abdominal Pain, Diarrhea, Nausea Genitourinary Male: Normal. absent: Dysuria, Frequency, Hematuria, Urinary Output Changes Musculoskeletal: Normal. absent: Back Pain, Neck Pain Skin: Normal. absent: Rash Neurological: Normal. absent: Headache, Dizziness Endocrine: Normal Hemo/Lymphatic: Normal Psychiatric: Normal Physical Exam Vital Signs Reviewed: Yes Vital Signs Temp Pulse Resp BP Pulse Ox 02/07/17 00:02 116 H 18 120/78 99 02/06/17 23:34 144 H 170/77 H 02/06/17 23:33 144 H 170/77 H 02/06/17 23:11 98.2 F 161 H 18 170/77 H 100 Temperature: Afebrile Blood Pressure: Normal Pulse: Tachycardic Respiratory Rate: Normal Appearance: Positive for: Well-Appearing, Non-Toxic, Comfortable Pain Distress: None Mental Status: Positive for: Alert and Oriented X 3 - Systems Exam Head: Present: Atraumatic, Normocephalic Pupils: Present: PERRL Extroacular Muscles: Present: EOMI Conjunctiva: Present: Normal Mouth: Present: Moist Mucous Membranes Nose (External): Present: Atraumatic Nose (Internal): No: No Active Bleeding (Blood in left nares, no active bleeding noted) Neck: Present: Normal Range of Motion Respiratory/Chest: Present: Clear to Auscultation, Good Air Exchange. No: Respiratory Distress, Accessory Muscle Use Cardiovascular: Present: Normal S1, S2, Tachycardic. No: Murmurs Abdomen: Present: Normal Bowel Sounds. No: Tenderness, Distention, Peritoneal Signs Back: Present: Normal Inspection Upper Extremity: Present: Normal Inspection. No: Cyanosis, Edema Lower Extremity: Present: Normal Inspection. No: Edema Neurological: Present: GCS=15, CN II-XII Intact, Speech Normal Skin: Present: Warm, Dry, Normal Color. No: Rashes Psychiatric: Present: Alert, Oriented x 3, Normal Insight, Normal Concentration Medical Decision Making ED Course and Treatment: 02/06/17 23:06 Impression: 82 year old male c/o epistaxis. Differential Diagnosis included but are not limited to: epistaxis vs. atrial fibrillation Plan: -- EKG -- Labs, cardiac enzymes -- Cardizem -- Reassess and disposition Prior Visits: Notes and results from previous visits were reviewed. On 02/05/2017, pt was seen in the ED for epistaxis. Pt had silver nitrate cautery and rhino rocket placed. Pt was d/c home. Progress Notes: Reviewed EKG, a fib with rapid ventricular response at 161 bpm. RBBB. Non- specific ST/T wave changes. 02/07/17 00:17 Reviewed radiology, CXR shows no acute processes. 02/07/17 00:[address] Jorje Franklin, who is aware and agrees with plan. Accepts pt in to his service. Pt will be admitted to Telemetry for rapid atrial fibrillation. Requests Dr. Son on consult. Pt is no acute distress, no active bleeding from nose at this time. Discussed results and hospital admission plan with pt, who is aware and verbalizes understanding. - Lab Interpretations Lab Results: 02/06/17 23:28 02/06/17 23:28 Lab Results 02/06/17 23:28: WBC 18.5 H, RBC 4.06, Hgb 11.0 L, Hct 33.0 L, MCV 81.3, MCH 27.1 , MCHC 33.3, RDW 22.6 H, Plt Count 339, MPV 9.3 02/06/17 23:28: Sodium 131 L, Potassium 3.9, Chloride 98, Carbon Dioxide 23, Anion Gap 14, BUN 26 H, Creatinine 0.9, Est GFR ( Amer) > 60, Est GFR ( Non-Af Amer) > 60, Random Glucose 111 H, Calcium 8.5, Total Bilirubin 1.7 H, AST 204 H, ALT 59 H, Alkaline Phosphatase 762 H, Lactate Dehydrogenase 2133 H, Total Creatine Kinase 131, Troponin I 0.02 D, Total Protein 5.8, Albumin 2.8 L , Globulin 2.9, Albumin/Globulin Ratio 1.0 L 02/06/17 23:28: PT 12.3 H, INR 1.14 H, APTT 28.5 I have reviewed the lab results: Yes - RAD Interpretation Radiology Orders: 02/06/17 23:18 CHEST PORTABLE [RAD] Stat Auxiliary Powerplant Operator: ED Physician - EKG Interpretation Interpreted by ED Physician: Yes Type: 12 lead EKG - Medication Orders Current Medication Orders: diltiaZEM IVPB 100mg in NS (Cardizem 100mg In Ns) 100 mls @ 5 mls/hr IV .Q20H PRN; Protocol; 5 MG/HR PRN Reason: TITRATE PER MD ORDER Last Admin: 02/06/17 23:34 Dose: 5 mls/hr Discontinued Medications Diltiazem HCl (Cardizem) 20 mg IVP ONCE ONE Stop: 02/06/17 23:21 Last Admin: 02/06/17 23:33 Dose: 20 mg - Scribe Statement The provider has reviewed the documentation as recorded by the Kei Mishra Provider Scribe Attestation: All medical record entries made by the Scribe were at my direction and personally dictated by me. I have reviewed the chart and agree that the record accurately reflects my personal performance of the history, physical exam, medical decision making, and the department course for this patient. I have also personally directed, reviewed, and agree with the discharge instructions and disposition. Disposition/Present on Arrival - Present on Arrival Any Indicators Present on Arrival: No History of DVT/PE: No History of Uncontrolled Diabetes: No Urinary Catheter: No History Surgical Site Infection Following: None - Disposition Have Diagnosis and Disposition been Completed?: Yes Diagnosis: Atrial fibrillation with RVR, Epistaxis Disposition: HOSPITALIZED Disposition Time: 00:28 Condition: STABLE
[2017-02-06] MEDS: diltiaZEM IVPB 100mg in NS 100 ML IV PRN (23:34)
[2017-02-06 23:48] LABS: MEAN CELL VOLUME 81.3 fL (80.0-105.0); MEAN CORPUSCULAR HEMOGLOBIN 27.1 pg (25.0-35.0); MEAN CORPUSCULAR HGB CONC 33.3 g/dl (31.0-37.0); MEAN PLATELET VOLUME 9.3 fl (7.0-11.0); RED CELL DISTRIBUTION WIDTH 22.6 % (11.5-14.5); WHITE BLOOD COUNT 18.5 10^3/ul (4.5-11.0)
[2017-02-06 23:54] LABS: ALKALINE PHOSPHATASE 762 U/L (38-133); ALT/SGPT 59 U/L (7-56); AST/SGOT 204 U/L (15-59); BILIRUBIN,TOTAL 1.7 mg/dL (0.2-1.3); BLOOD UREA NITROGEN 26 mg/dL (7-21); CALCIUM 8.5 mg/dL (8.4-10.5); CARBON DIOXIDE 23 mmol/L (21-33); CHLORIDE 98 mmol/L (98-107); GFR AFRICAN-AMERICAN > 60; GLUCOSE,RANDOM 111 mg/dL (70-110); POTASSIUM 3.9 mmol/L (3.6-5.0); SODIUM 131 mmol/L (132-148); TOTAL PROTEIN 5.8 g/dL (5.8-8.3)
[2017-02-06 23:55] LABS: INR 1.14 (0.93-1.08); PARTIAL THROMBOPLASTIN TIME 28.5 Seconds (23.7-30.8)
[2017-02-07 00:05] LABS: TROPONIN I 0.02 ng/mL
[2017-02-07] MEDS: diltiaZEM IVPB 100mg in NS 100 ML IV PRN ×3 (00:30→09:18)
--- NOTE | 2017-02-07 02:38 | CP.PCM.PN ---
Subjective - Date & Time of Evaluation Date of Evaluation: 02/07/17 Time of Evaluation: 02:35 - Subjective Subjective: Nurse calls and tells that patient has atrial fibrillation with RVR on cardizem drip at 5 ml / hr, for about an hour since came to the floor, heart rate has been going to and staying above 130 /min. I examined patient at bedside.Seems to be resting comfortably. Medical record was reviewed. This 82 year old admitted with epistaxis. Has PMH of HTN,Atrial fibrillation with RVR,HLD, tertiary syphilis, stage IV invasive carcinoma of colon,hepatic + pulmonary metastasis, prostate cancer, PVD , hemicolectomy,S/P port-a-cath, femoral angiogram with stenting. Objective - Vital Signs/Intake and Output Vital Signs (last 24 hours): Temp Pulse Resp BP Pulse Ox 98.2 F 142 H 18 135/87 100 02/06/17 23:11 02/07/17 02:30 02/07/17 00:51 02/07/17 02:30 02/07/17 00:51 - Medications Medications: Current Medications diltiaZEM IVPB 100mg in NS (Cardizem 100mg In Ns) 100 mls @ 10 mls/hr IV .Q10H PRN; Protocol; 10 MG/HR PRN Reason: TITRATE PER MD ORDER Last Admin: 02/07/17 02:30 Dose: 10 mg/hr, 10 mls/hr - Labs Labs: PT 12.3 Seconds (9.9-11.8) H 02/06/17 23:28 INR 1.14 (0.93-1.08) H 02/06/17 23:28 APTT 28.5 Seconds (23.7-30.8) 02/06/17 23:28 Laboratory Last Values WBC 18.5 10^3/ul (4.5-11.0) H 02/06/17 23:28 RBC 4.06 10^6/uL (3.5-6.1) 02/06/17 23:28 Hgb 11.0 gm/dL (14.0-18.0) L 02/06/17 23:28 Hct 33.0 % (42.0-52.0) L 02/06/17 23:28 MCV 81.3 fL (80.0-105.0) 02/06/17 23: MCH 27.1 pg (25.0-35.0) 02/06/17 23: MCHC 33.3 g/dl (31.0-37.0) 02/06/17 23: RDW 22.6 % (11.5-14.5) H 02/06/17 23: Plt Count 339 10^3/uL (120.0-450.0) 02/06/17 23: MPV 9.3 fl (7.0-11.0) 02/06/17 23: PT 12.3 Seconds (9.9-11.8) H 02/06/17 23: INR 1.14 (0.93-1.08) H 02/06/17: APTT 28.5 Seconds (23.7-30.8) 02/06/17 23: Sodium 131 mmol/L (132-148) L 02/06/17: Potassium 3.9 mmol/L (3.6-5.0) 02/06/17: Chloride 98 mmol/L (98-107) 02/06/17: Carbon Dioxide 23 mmol/L (21-33) 02/06/17: Anion Gap 14 (10-20) 02/06/17: BUN 26 mg/dL (7-21) H 02/06/17 23: Creatinine 0.9 mg/dL (0.5-1.4) 02/06/17 23: Est GFR ( Amer) > 60 02/06/17 23: Est GFR (Non-Af Amer) > 60 02/06/17 23: Random Glucose 111 mg/dL (70-110) H 02/06/17 23: Calcium 8.5 mg/dL (8.4-10.5) 02/06/17: Total Bilirubin 1.7 mg/dL (0.2-1.3) H 02/06/17 23:28 AST 204 U/L (15-59) H 02/06/17 23:28 ALT 59 U/L (7-56) H 02/06/17 23:28 Alkaline Phosphatase 762 U/L (38-133) H 02/06/17 23:28 Lactate Dehydrogenase 2133 U/L (333-699) H 02/06/17 23:28 Total Creatine Kinase 131 U/L (35-230) 02/06/17 23:28 Troponin I 0.02 ng/mL D 02/06/17 23:28 Total Protein 5.8 g/dL (5.8-8.3) 02/06/17 23:28 Albumin 2.8 g/dL (3.0-4.8) L 02/06/17 23:28 Globulin 2.9 gm/dL 02/06/17 23:28 Albumin/Globulin Ratio 1.0 (1.1-1.8) L 02/06/17 23:28 - Constitutional Appears: Well, No Acute Distress - Head Exam Head Exam: ATRAUMATIC, NORMAL INSPECTION, NORMOCEPHALIC - Eye Exam Eye Exam: Normal appearance - ENT Exam ENT Exam: Normal External Ear Exam - Neck Exam Neck Exam: Normal Inspection - Respiratory Exam Respiratory Exam: NORMAL BREATHING PATTERN - Cardiovascular Exam Cardiovascular Exam: absent: JVD - GI/Abdominal Exam GI & Abdominal Exam: absent: Distended - Rectal Exam Rectal Exam: Deferred - Exam Additional comments: Above deferred. - Extremities Exam Extremities Exam: Normal Inspection - Back Exam Back Exam: NORMAL INSPECTION - Neurological Exam Additional comments: Asleep. - Psychiatric Exam Additional comments: Asleep. - Skin Skin Exam: Normal Color Assessment and Plan - Assessment and Plan (Free Text) Assessment: Atrial fibrillation with RVR. Stage IV colon cancer. Mets to liver and lung. HTN. HLD. Prostate cancer. Plan: Will increase the cardizem drip rate to 10 ml / hour. I see no AM labs ordered. Will order CMP, Mag,PHOS, troponin, and TSH.
[2017-02-07 03:01] LABS: ALB/GLOB RATIO 0.9 (1.1-1.8); ALKALINE PHOSPHATASE 674 U/L (38-133); ALT/SGPT 61 U/L (7-56); AST/SGOT 192 U/L (15-59); BILIRUBIN,TOTAL 1.5 mg/dL (0.2-1.3); BLOOD UREA NITROGEN 24 mg/dL (7-21); CALCIUM 8.4 mg/dL (8.4-10.5); CARBON DIOXIDE 22 mmol/L (21-33); CHLORIDE 98 mmol/L (98-107); GFR AFRICAN-AMERICAN > 60; GLUCOSE,RANDOM 118 mg/dL (70-110); MAGNESIUM 1.6 mg/dL (1.7-2.2); POTASSIUM 3.8 mmol/L (3.6-5.0); SODIUM 129 mmol/L (132-148); TOTAL PROTEIN 5.7 g/dL (5.8-8.3)
[2017-02-07 03:14] LABS: TROPONIN I < 0.01 ng/mL
[2017-02-07] MEDS ORDERED: Magnesium Sulfate 1 gm in D5W 1 GM/100 ML BAG IVPB ONE (05:32)
--- NOTE | 2017-02-07 07:19 | RAD ---
HISTORY: fever COMPARISON: 01/20/2017 1443 hours FINDINGS: LUNGS: The right hemidiaphragm is asymmetrically elevated -as before. Some discoid atelectasis at this lung base is suggested. Trace interval fluid in the right fissure also suggested. . Note of prior thoracentesis Re-accumulation of right subpleural pulmonic fluid is 1 consideration PLEURA: no pneumothorax apparent. As above CARDIOVASCULAR: Mild cardiomegaly - unchanged. OSSEOUS STRUCTURES: Thoracic spondylosis VISUALIZED UPPER ABDOMEN: Normal. OTHER FINDINGS: None. IMPRESSION: Interval right fissural fluid-minimal. Interval right basal discoid atelectasis. Symmetrically elevated right hemidiaphragm- reaccumulation of the fluid -subpleural possible. Consider left and right decubital imaging
--- NOTE | 2017-02-07 08:50 | CP.PCM.HP ---
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 The patient is on Eliquis 5mg BID for his underlying Afib and was seen at ED one day prior to admission for epistaxis. Nasal packing was placed and he followed up with his PMD the following day for reevaluation. At that point in time there was no further report of epistaxis and his packing was removed without difficulty. Upon removal of the packing scant oozing of blood was noted and the patient was advised to maintain pressure as needed and to hold his Eliquis for the following 48 hours. Given the persistent oozing he opted for evaluation in the ED later that day. Upon arrival to the ED, physical examination demonstrated resolution of his epistaxis however he was noted to be tachycardic with a pulse of 160. He was completely asymptomatic and otherwise hemodynamically stable. Given his marked tachycardia he was placed on a Cardizem drip and admitted to the telemetry mosley for continued management of Afib with RVR. Past Medical History: As per HPI, also hyperlipidemia, PVD, prostate cancer, history of tertiary syphilis s/p course of aqueous penicillin and history of MSSA bacteremia secondary to Port-A-Cath line sepsis Past Surgical History: As per HPI Allergies: NKDA Medications: Atenolol 50mg PO BID, Verapimil 180mg PO BID, Eliquis 5mg PO BID, Lipitor 40mg PO BID and Lasix 40mg PO QD Family History: Significant for HTN and bladder cancer in his father Social History: The patient reports a former 30 pack-year smoking history but quit in 1973. He reports social EtOH use and denies illicit drug abuse. Review Of Systems: A 14-point ROS is negative except as per HPI Physical Examination: VS: T 97.7, P 114, BP 125/76, RR 20, O2 saturation 96% on 2L NC Gen: Elderly man lying in bed in NAD HEENT: NC/AT, PERRL, EOMI, no scleral icterus, no conjunctival pallor Neck: supple with full ROM, no JVD Lungs: decreased BS to the bases with bibasilar crackles CV: tachycardic, irregularly irregular Abd: NABS, soft, NT, ND, (+) colostomy with dark stool in bag Ext: no c/c/e Neuro: AAO x 3, no focal motor deficits Laboratory Data: Reviewed and notable for leukocytosis with WBC of 18k, hyponatremia with Na of 129, elevated LDH and LFTs Assessment: The patient is an 82 yo man with multiple medical comorbidities including stage IV adenocarcinoma of the colon (with hepatic and pulmonary mets) s/p left hemicolectomy s/p colostomy, Afib, HTN, HL and PVD who presented to for reevaluation of epistaxis which was noted to resolved but was subsequently admitted for management of Afib with RVR Plan: 1. Afib with RVR. The patient has been started on Cardizem drip with significant improvement in his ventricular rate. Dr. Son of cardiology has been consulted from the ED for further evaluation and recommendations. Will lower Eliquis to 2.5mg PO BID. Will resume Atenolol 50mg PO BID. I had a lengthy discussion this morning with the patient regarding compliance with his medications as prescribed and advised him that upon discharge we will reconcile his medications so as to minimize his readmissions for his underlying Afib. 2. Hyponatremia, etiology likely secondary to use of Lasix. Patient was advised to hold his Lasix given evidence of pre-renal azotemia on labs done in the ED. Will encourage po intake. 3. Stage IV adenocarcinoma of the colon s/p left hemicolectomy s/p colostomy. The patient is followed closely by Dr. Levin and a consultation has been placed for further evaluation and recommendations. 4. HTN. BP improved, will resume home medications and adjust as needed. 5. HL. Will resume Lipitor 40 mg PO QD 6. Left iliac occlusive disease. Continue with Eliquis 2.5 mg PO BID and Lipitor 40 mg PO QD 7. Prophylaxis. GI prophylaxis not indicated as the patient is eating, DVT prophylaxis not indicated as the patient is on Eliquis for his underlying Afib. Code Status: Full Code Present on Admission - Present on Admission Any Indicators Present on Admission: Yes Past Patient History - Infectious Disease Hx of Infectious Diseases: None - Past Social History Smoking Status: Never Smoked - CARDIAC Hx Cardiac Disorders: Yes Hx Hypertension: Yes Hx Peripheral Vascular Disease: Yes - PULMONARY Hx Respiratory Disorders: Yes (PLEURAL EFFUSION 12-11-16) Other/Comment: LUNG CA - NEUROLOGICAL Hx Neurological Disorder: No - HEENT Hx HEENT Problems: Yes Other/Comment: CROW WEARS B/L HEARING AIDS, WEARS EYEGLASSES (READING) - RENAL Hx Chronic Kidney Disease: No - ENDOCRINE/METABOLIC Hx Endocrine Disorders: No - HEMATOLOGICAL/ONCOLOGICAL Hx Blood Disorders: Yes Hx Cancer: Yes (Colon CA with mets to liver and lungs) Hx Chemotherapy: Yes - INTEGUMENTARY Hx Dermatological Problems: Yes (COLOSTOMY) - MUSCULOSKELETAL/RHEUMATOLOGICAL Hx Musculoskeletal Disorders: No Hx Falls: Yes - GASTROINTESTINAL Hx Gastrointestinal Disorders: Yes (adenocarcinoma of the colon,METS TO LIVER, LUNG) Hx Diverticulitis: Yes - GENITOURINARY/GYNECOLOGICAL Hx Genitourinary Disorders: Yes Hx Prostate Problems: Yes (HX OF PROSTATE CA (RADIATION PROSTATE SEEDS)) - PSYCHIATRIC Hx Psychophysiologic Disorder: Yes (SMOKED CIGARETTES AND CIGARS QUIT 1973) Hx Anxiety: No - SURGICAL HISTORY Other/Comment: L HEMICOLECTOMY (COLOSTOMY IN PLACE) - ANESTHESIA Hx Anesthesia Reactions: No Hx Malignant Hyperthermia: No Meds Allergies/Adverse Reactions: Allergies Allergy/AdvReac Type Severity Reaction Status Date / Time No Known Allergies Allergy Verified 02/05/17 08:49 Results - Vital Signs Recent Vital Signs: Last Vital Signs Temp 98.4 F 02/07/17 06:00 Pulse 123 H 02/07/17 06:00 Resp 20 02/07/17 06:00 BP 135/72 02/07/17 06:00 Pulse Ox 95 02/07/17 06:00 - Labs Result Diagrams: 02/06/17 23:28 02/07/17 02:25 Labs: Laboratory Results - last 24 hr 02/07/17 02/07/17 02:25 02:25 Sodium 129 L Potassium 3.8 Chloride 98 Carbon Dioxide 22 Anion Gap 13 BUN 24 H Creatinine 0.9 Est GFR ( Amer) > 60 Est GFR (Non-Af Amer) > 60 Random Glucose 118 H Calcium 8.4 Phosphorus 4.0 Magnesium 1.6 L Total Bilirubin 1.5 H AST 192 H ALT 61 H Alkaline Phosphatase 674 H Troponin I < 0.01 D Total Protein 5.7 L Albumin 2.7 L Globulin 3.0 Albumin/Globulin Ratio 0.9 L TSH 3rd Generation 3.50
--- NOTE | 2017-02-07 10:17 | CARD ---
APPROVED REPORT EKG Measurement Heart [id number] <Conclusion> Atrial fibrillation with rapid ventricular response Right bundle branch block Abnormal ECG
[2017-02-07] MEDS ORDERED: Digoxin 250 mcg (0.25 mg) Tab PO SCH (14:00)
[2017-02-07 23:39] VITALS: RESP 19
[2017-02-08 06:02] VITALS: TEMP 97.6; O2SAT 96
[2017-02-08 06:23] LABS: ADD MANUAL DIFF? NO
[2017-02-08 06:50] LABS: ALB/GLOB RATIO 0.9 (1.1-1.8); ALKALINE PHOSPHATASE 637 U/L (38-133); ALT/SGPT 46 U/L (7-56); AST/SGOT 96 U/L (15-59); BILIRUBIN,TOTAL 1.2 mg/dL (0.2-1.3); BLOOD UREA NITROGEN 17 mg/dL (7-21); CALCIUM 8.1 mg/dL (8.4-10.5); CARBON DIOXIDE 22 mmol/L (21-33); CHLORIDE 100 mmol/L (98-107); GFR AFRICAN-AMERICAN > 60; GLUCOSE,RANDOM 87 mg/dL (70-110); POTASSIUM 3.9 mmol/L (3.6-5.0); SODIUM 130 mmol/L (132-148); TOTAL PROTEIN 5.1 g/dL (5.8-8.3)
[2017-02-08 06:54] LABS: BASO # 0.02 K/mm3 (0.0-2.0); BASO % 0.1 % (0.0-3.0); EOS # 0.1 (0.0-0.7); EOS % 0.5 % (1.5-5.0); GRAN # 10.21 (1.4-6.5); GRAN % 68.5 % (50.0-68.0); HEMATOCRIT 29.6 % (42.0-52.0); LYMPH # 2.6 (1.2-3.4); LYMPH % 17.2 % (22.0-35.0); MEAN CELL VOLUME 81.5 fL (80.0-105.0); MEAN CORPUSCULAR HEMOGLOBIN 27.3 pg (25.0-35.0); MEAN CORPUSCULAR HGB CONC 33.4 g/dl (31.0-37.0); MEAN PLATELET VOLUME 9.4 fl (7.0-11.0); MONO % 13.7 % (1.0-6.0); PLATELET COUNT 259 10^3/uL (120.0-450.0); RED CELL DISTRIBUTION WIDTH 22.4 % (11.5-14.5); WHITE BLOOD COUNT 14.9 10^3/ul (4.5-11.0)
[2017-02-08] MEDS ORDERED: Digoxin 125 mcg (0.125 mg) Tab PO SCH (08:15)
--- NOTE | 2017-02-08 08:22 | CP.PCM.PN ---
Subjective - Date & Time of Evaluation Date of Evaluation: 02/08/17 Time of Evaluation: 07:30 - Subjective Subjective: Cardiology f/u Patient is asymptomatic. HR well controlled VSS neck neg JV lungs clear heart S1S2 Ext without edema Labs Noted Impression: Hr better controlled. A fib anema sp nose bleed Plan: decrease eliquist to 2.5 BID add Dig 0.125 daily continue verapamil 180 daily dc telemetry Objective - Vital Signs/Intake and Output Vital Signs (last 24 hours): Temp Pulse Resp BP Pulse Ox 97.6 F 95 H 19 119/74 96 02/08/17 06:00 02/08/17 06:00 02/08/17 06:00 02/08/17 06:00 02/08/17 06:00 Intake and Output: 02/08/17 02/08/17 06:59 18:59 Intake Total 240 Output Total 325 Balance -85 - Medications Medications: Current Medications Apixaban (Eliquis) 2.5 mg PO BID [facility] PRN Reason: Protocol Last Admin: 02/07/17 17:17 Dose: 2.5 mg Atenolol (Tenormin) 50 mg PO BID [facility] Last Admin: 02/07/17 17:16 Dose: 50 mg Digoxin (Lanoxin) 0.125 mg PO 1400 [facility] - Labs Labs: 02/08/17 05:36 02/08/17 05:30 PT 12.3 Seconds (9.9-11.8) H 02/06/17 23:28 INR 1.14 (0.93-1.08) H 02/06/17 23:28 APTT 28.5 Seconds (23.7-30.8) 02/06/17 23:28
[2017-02-08] MEDS ORDERED: Digoxin 250 mcg (0.25 mg) Tab PO ONE (08:34)
--- NOTE | 2017-02-08 08:35 | CP.PCM.PN ---
Subjective - Date & Time of Evaluation Date of Evaluation: 02/08/17 Time of Evaluation: 07:45 - Subjective Subjective: Subjective: Patient seen and examined on telemetry mosley. No acute events overnight. He remains afebrile and hemodynamically stable and with improved rate control. Objective: VS: T 97.6, P 82, BP 112/78, RR 18, O2 saturation 96% on RA Gen: NAD HEENT: PERRL, EOMI, no icterus Neck: supple, no JVD Lungs: decreased BS to bases CV: irregularly irregular, normal S1 and S2 Abd: NABS, soft, NT, ND, (+) colostomy with pink, viable stoma Ext: no c/c/e Neuro: AAO x 3, no focal deficits Laboratory Data: WBC 14.9, Hb 9.9, Hct 29.6, Plt 259 Na 130, K 3.9, Cl 100, HCO3 22, BUN 17, Cr 0.6, Glucose 87 Assessment: The patient is an 82 yo man with multiple medical comorbidities including stage IV adenocarcinoma of the colon (with pulmonary and hepatic mets) s/p left hemicolectomy s/p colstomy, Afib and HTN who presented to [facility] for reevaluation of epistaxis and who was subsequently admitted for management of Afib with RVR Plan: 1. Afib. Input from Dr. Son greatly appreciated and patient is now rate controlled. We will d/c Cardizem drip and resume outpatient dose of Verapimil 180mg PO QD. Patient to be started on Digoxin 0.125mg PO QD. Continue with Eliquis 2.5mg PO BID. 2. HTN. BP controlled, c/w meds as above and Atenolol 50mg PO BID. 3. Stage IV adenocarcinoma of the colon s/p L hemicolectomy s/p colostomy. Patient has PET scan pending later today. He will resume f/u with Dr. Levin as scheduled. 4. HL. Continue with Lipitor 40mg PO QD. 5. Left iliac occlusive disease. Continue with Eliquis and Lipitor. 6. Prophylaxis. GI prophylaxis not indicated as patient is eating. DVT prophylaxis not indicated as patient on Eliquis for underlying Afib. 7. Disposition. Patient for d/c to home today. Code Status: Full Code Objective - Vital Signs/Intake and Output Vital Signs (last 24 hours): Temp Pulse Resp BP Pulse Ox 97.6 F 95 H 19 119/74 96 02/08/17 06:00 02/08/17 06:00 02/08/17 06:00 02/08/17 06:00 02/08/17 06:00 Intake and Output: 02/08/17 02/08/17 06:59 18:59 Intake Total 240 Output Total 325 Balance -85 - Medications Medications: Current Medications Apixaban (Eliquis) 2.5 mg PO BID [facility] PRN Reason: Protocol Last Admin: 02/07/17 17:17 Dose: 2.5 mg Atenolol (Tenormin) 50 mg PO BID [facility] Last Admin: 02/07/17 17:16 Dose: 50 mg Digoxin (Lanoxin) 0.125 mg PO 1400 [facility] - Labs Labs: 02/08/17 05:36 02/08/17 05:30 PT 12.3 Seconds (9.9-11.8) H 02/06/17 23:28 INR 1.14 (0.93-1.08) H 02/06/17 23:28 APTT 28.5 Seconds (23.7-30.8) 02/06/17 23:28
[2017-02-08 08:46] VITALS: PULSE 110
--- NOTE | 2017-02-08 09:42 | CP.PCM.CON ---
History of Present Illness - History of Present Illness History of Present Illness: Mr Small is a 82 yr old male presents with nose bleed and hr out of control PMH includes chronic Afib treated with verap and eliquist. In addiition, pt suffers from hypertension and anemia last cardiac workup includes an ECHO which reveals normal LV function He denies chest pain, SOB Review of Systems - Review of Systems All systems: reviewed and no additional remarkable complaints except Past Patient History - Infectious Disease Hx of Infectious Diseases: None - Past Social History Smoking Status: Never Smoked - CARDIAC Hx Cardiac Disorders: Yes Hx Angina: No Hx Atrial Fibrillation: Yes Hx Cardia Arrhythmia: Yes Hx Circulatory Problems: No Hx Congestive Heart Failure: No Hx Heart Attack: No Hx Heart Murmur: No Hx Heart Transplant: No Hx Hypercholesterolemia: No Hx Hypertension: Yes Hx Hypotension: No Hx Internal Defibrillator: No Hx Mitral Valve Prolapse: No Hx Pacemaker: No Hx Peripheral Vascular Disease: Yes - PULMONARY Hx Respiratory Disorders: Yes (PLEURAL EFFUSION 12-11-16) Hx Asthma: No Hx Bronchitis: No Hx Chronic Obstructive Pulmonary Disease (COPD): No Other/Comment: LUNG CA - NEUROLOGICAL Hx Neurological Disorder: No - HEENT Hx HEENT Problems: Yes Other/Comment: [place] WEARS B/L HEARING AIDS, WEARS EYEGLASSES (READING) - RENAL Hx Chronic Kidney Disease: No - ENDOCRINE/METABOLIC Hx Endocrine Disorders: No - HEMATOLOGICAL/ONCOLOGICAL Hx Blood Disorders: Yes Hx Cancer: Yes (Colon CA with mets to liver and lungs) Hx Chemotherapy: Yes - INTEGUMENTARY Hx Dermatological Problems: Yes (COLOSTOMY) - MUSCULOSKELETAL/RHEUMATOLOGICAL Hx Musculoskeletal Disorders: No Hx Falls: Yes - GASTROINTESTINAL Hx Gastrointestinal Disorders: Yes (adenocarcinoma of the colon,METS TO LIVER, LUNG) Hx Diverticulitis: Yes - GENITOURINARY/GYNECOLOGICAL Hx Genitourinary Disorders: Yes Hx Prostate Problems: Yes (HX OF PROSTATE CA (RADIATION PROSTATE SEEDS)) - PSYCHIATRIC Hx Psychophysiologic Disorder: Yes (SMOKED CIGARETTES AND CIGARS QUIT 1973) Hx Anxiety: No - SURGICAL HISTORY Other/Comment: L HEMICOLECTOMY (COLOSTOMY IN PLACE) - ANESTHESIA Hx Anesthesia Reactions: No Hx Malignant Hyperthermia: No Meds Allergies/Adverse Reactions: Allergies Allergy/AdvReac Type Severity Reaction Status Date / Time No Known Allergies Allergy Verified 02/05/17 08:49 - Medications Medications: Current Medications Apixaban (Eliquis) 2.5 mg PO BID [facility] PRN Reason: Protocol Last Admin: 02/07/17 17:17 Dose: 2.5 mg Atenolol (Tenormin) 50 mg PO BID [facility] Last Admin: 02/07/17 17:16 Dose: 50 mg Digoxin (Lanoxin) 0.125 mg PO 1400 [facility] Physical Exam - Constitutional Appears: Non-toxic - Head Exam Head Exam: NORMAL INSPECTION - Neck Exam Additional comments: negative JVD , NO bruits - Respiratory Exam Respiratory Exam: Clear to Auscultation Bilateral - Cardiovascular Exam Cardiovascular Exam: REGULAR RHYTHM, +S1, +S2 - Extremities Exam Additional comments: No pedal edema - Neurological Exam Neurological exam: Oriented x3 Results - Vital Signs Recent Vital Signs: Last Vital Signs Temp 97.6 F 02/08/17 06:00 Pulse 110 H 02/08/17 08:45 Resp 19 02/08/17 06:00 BP 114/74 02/08/17 08:45 Pulse Ox 96 02/08/17 06:00 - Labs Result Diagrams: 02/08/17 05:36 02/08/17 05:30 Labs: Laboratory Results - last 24 hr 02/08/17 02/08/17 05:30 05:36 WBC 14.9 H RBC 3.63 Hgb 9.9 L Hct 29.6 L MCV 81.5 MCH 27.3 MCHC 33.4 RDW 22.4 H Plt Count 259 MPV 9.4 Gran % 68.5 H Lymph % (Auto) 17.2 L [place] % (Auto) 13.7 H Eos % (Auto) 0.5 L Baso % (Auto) 0.1 Gran # 10.21 H Lymph # 2.6 [place] # 2.0 H Eos # 0.1 Baso # 0.02 Sodium 130 L Potassium 3.9 Chloride 100 Carbon Dioxide 22 Anion Gap 12 BUN 17 Creatinine 0.6 Est GFR ( Amer) > 60 Est GFR (Non-Af Amer) > 60 Random Glucose 87 Calcium 8.1 L Total Bilirubin 1.2 AST 96 H ALT 46 Alkaline Phosphatase 637 H Total Protein 5.1 L Albumin 2.4 L Globulin 2.7 Albumin/Globulin Ratio 0.9 L - EKG Data Rate: Tachycardia - Impressions Impression: Afib Assessment & Plan - Assessment and Plan (Free Text) Assessment: Atrial Fibrillation Hypertension anemia nose bleed tachycardia Plan: Decrease eliquist to 2.6 BID IV cardizem Add PO digoxin - Date & Time Date: 02/07/17 Time: 09:00
[2017-02-08 10:09] VITALS: BP 107/59
--- NOTE | 2017-02-18 10:23 | CP.PCM.DIS ---
Provider - Provider Date of Admission: 02/07/17 00:21 Attending physician: Ghanshyam Franklin MD Primary care physician: Ghanshyam Franklin MD Consults: Dr. Son Time Spent in preparation of Discharge (in minutes): 35 Hospital Course - Lab Results Lab Results: Most Recent Lab Values WBC 14.9 10^3/ul (4.5-11.0) H 02/08/17 05:36 RBC 3.63 10^6/uL (3.5-6.1) 02/08/17 05:36 Hgb 9.9 gm/dL (14.0-18.0) L 02/08/17 05:36 Hct 29.6 % (42.0-52.0) L 02/08/17 05:36 MCV 81.5 fL (80.0-105.0) 02/08/17 05:36 MCH 27.3 pg (25.0-35.0) 02/08/17 05:36 MCHC 33.4 g/dl (31.0-37.0) 02/08/17 05:36 RDW 22.4 % (11.5-14.5) H 02/08/17 05:36 Plt Count 259 10^3/uL (120.0-450.0) 02/08/17 05:36 MPV 9.4 fl (7.0-11.0) 02/08/17 05:36 Gran % 68.5 % (50.0-68.0) H 02/08/17 05:36 Lymph % (Auto) 17.2 % (22.0-35.0) L 02/08/17 05:36 [place] % (Auto) 13.7 % (1.0-6.0) H 02/08/17 05:36 Eos % (Auto) 0.5 % (1.5-5.0) L 02/08/17 05:36 Baso % (Auto) 0.1 % (0.0-3.0) 02/08/17 05:36 Gran # 10.21 (1.4-6.5) H 02/08/17 05:36 Lymph # 2.6 (1.2-3.4) 02/08/17 05:36 [place] # 2.0 (0.1-0.6) H 02/08/17 05:36 Eos # 0.1 (0.0-0.7) 02/08/17 05:36 Baso # 0.02 K/mm3 (0.0-2.0) 02/08/17 05:36 PT 12.3 Seconds (9.9-11.8) H 02/06/17 23:28 INR 1.14 (0.93-1.08) H 02/06/17 23:28 APTT 28.5 Seconds (23.7-30.8) 02/06/17 23:28 Sodium 130 mmol/L (132-148) L 02/08/17 05:30 Potassium 3.9 mmol/L (3.6-5.0) 02/08/17 05:30 Chloride 100 mmol/L (98-107) 02/08/17 05:30 Carbon Dioxide 22 mmol/L (21-33) 02/08/17 05:30 Anion Gap 12 (10-20) 02/08/17 05:30 BUN 17 mg/dL (7-21) 02/08/17 05:30 Creatinine 0.6 mg/dL (0.5-1.4) 02/08/17 05:30 Est GFR ( Amer) > 60 02/08/17 05:30 Est GFR (Non-Af Amer) > 60 02/08/17 05:30 Random Glucose 87 mg/dL (70-110) 02/08/17 05:30 Calcium 8.1 mg/dL (8.4-10.5) L 02/08/17 05:30 Phosphorus 4.0 mg/dL (2.5-4.5) 02/07/17 02:25 Magnesium 1.6 mg/dL (1.7-2.2) L 02/07/17 02:25 Total Bilirubin 1.2 mg/dL (0.2-1.3) 02/08/17 05:30 AST 96 U/L (15-59) H 02/08/17 05:30 ALT 46 U/L (7-56) 02/08/17 05:30 Alkaline Phosphatase 637 U/L (38-133) H 02/08/17 05:30 Lactate Dehydrogenase 2133 U/L (333-699) H 02/06/17 23:28 Total Creatine Kinase 131 U/L (35-230) 02/06/17 23:28 Troponin I < 0.01 ng/mL D 02/07/17 02:25 Total Protein 5.1 g/dL (5.8-8.3) L 02/08/17 05:30 Albumin 2.4 g/dL (3.0-4.8) L 02/08/17 05:30 Globulin 2.7 gm/dL 02/08/17 05:30 Albumin/Globulin Ratio 0.9 (1.1-1.8) L 02/08/17 05:30 TSH 3rd Generation 3.50 mIU/mL (0.46-4.68) 02/07/17 02:25 - Hospital Course Hospital Course: The patient is an 82 yo man with 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 The patient is on Eliquis 5mg PO BID for his underlying AFib and recently had an episode of epistaxis treated in the ED with nasal packing. He followed up with his PMD and the nasal packing was removed without difficulty. No further epistaxis was noted. Later that day the patient had 1 episode of bleeding upon blowing his nose and given his recent bleed he presented to the ED for evaluation. He was reassured that the epistaxis had resolved but was noted to be in AFib with RVR and was admitted to the telemetry mosley for rate control. Upon admission to the telemetry mosley Dr. Son of cardiology was consulted. The patient was weaned off his Cardizem drip and Digoxin 0.125mg was added to his regimen. Over the following 24 hrs his HR improved and the patient was deemed stable for discharge to home. Condition: Fair, improved Disposition: To home Discharge Medicatons: Verapimil 180mg PO QD, Eliquis 2.5mg PO BID, Digoxin 0.125mg PO QD, Atenolol 50mg PO BID and Lipitor 40mg PO QD Discharge Exam - Head Exam Head Exam: NORMAL INSPECTION Discharge Plan - Follow Up Plan Condition: STABLE Disposition: HOME/ ROUTINE Instructions: Digoxin (By mouth), Atorvastatin (By mouth), Apixaban (By mouth) , Atrial Fibrillation (DC), Atrial Fibrillation (GEN), Nosebleed (GEN) Additional Instructions: Follow up with Dr Franklin in his office today after PET scan is complete as per his instruction. Referrals: Noemi MACHUCA,Ghanshyam Prado MD [Primary Care Provider] -
== END 2017-02-08 12:10 | disposition home or self-care (01) | DRG 309 ==
LOC: ED 22:36 → ERH 02-07 00:21 → 2RSO 02-07 01:54
PROVIDERS: ADMIT Student in an Organized Health Care Education/Training Program; ATTEND Student in an Organized Health Care Education/Training Program
DX: I48.2 Chronic atrial fibrillation (principal); C78.00 Secondary malignant neoplasm of unspecified lung; C78.7 Secondary malignant neoplasm of liver and intrahepatic bile duct; R04.0 Epistaxis; D64.9 Anemia, unspecified; I73.9 Peripheral vascular disease, unspecified; I10 Essential (primary) hypertension; E78.5 Hyperlipidemia, unspecified; F03.90 Unspecified dementia, unspecified severity, without behavioral disturbance, psychotic disturbance, mood disturbance, and anxiety; Z79.01 Long term (current) use of anticoagulants; Z85.038 Personal history of other malignant neoplasm of large intestine; Z93.3 Colostomy status; Z85.46 Personal history of malignant neoplasm of prostate; Z90.49 Acquired absence of other specified parts of digestive tract; Z86.19 Personal history of other infectious and parasitic diseases; Z87.891 Personal history of nicotine dependence

== ENCOUNTER 2017-02-21 11:35 | Inpatient (IN) | payer MEDICARE, OTHER ==
[2017-02-21 11:41] VITALS: BMI 31.9
--- NOTE | 2017-02-21 12:09 | ED PDOC ---
Arrival/HPI - General Chief Complaint: Shortness Of Breath Time Seen by Provider: 02/21/17 11:38 Historian: Patient - History of Present Illness Narrative History of Present Illness (Text): 02/21/17 12:03 A 82 year old male, whose past medical history includes atrial fibrillation, colon cancer (last chemotherapy session 2 weeks ago), hypertension, and hyperlipidemia, presents to the emergency department complaining of generalized weakness and dyspnea on exertion for the past 4 weeks. Patient also notes swelling of the abdomen which has been worsening for the past 2 weeks. He states sometimes he feels a pressure sensation in the chest from all the fluid build up but denies any chest pain. Patient reports edema of the bilateral lower extremities. Patient denies any cough, fever, headache, dizziness, nausea ,vomiting, hematuria, hematochezia, or any other complaints at this time. He was sent from Dr. Son's office after severe dyspnea on exertion was noted. PMD: Dr. Franklin Time/Duration: > week Symptom Onset: Gradual Symptom Course: Worsening Quality: Pressure Activities at Onset: Rest Context: Home Past Medical History - Provider Review Nursing Documentation Reviewed: Yes - Infectious Disease Hx of Infectious Diseases: None - Cardiac Hx Cardiac Disorders: Yes Hx Angina: No Hx Atrial Fibrillation: Yes Hx Cardiac Arrhythmia: Yes Hx Hypertension: Yes Hx Peripheral Vascular Disease: Yes - Pulmonary Hx Respiratory Disorders: Yes (PLEURAL EFFUSION 12-11-16) Other/Comment: LUNG CA - Neurological Hx Neurological Disorder: No - HEENT Hx HEENT Disorder: Yes Other/Comment: [place] WEARS B/L HEARING AIDS, WEARS EYEGLASSES (READING) - Renal Hx Renal Disorder: No - Endocrine/Metabolic Hx Endocrine Disorders: No - Hematological/Oncological Hx Blood Disorders: Yes Hx Cancer: Yes (Colon CA with mets to liver and lungs) Hx Chemotherapy: Yes - Integumentary Hx Dermatological Disorder: Yes (COLOSTOMY) - Musculoskeletal/Rheumatological Hx Musculoskeletal Disorders: No Hx Falls: Yes - Gastrointestinal Hx Gastrointestinal Disorders: Yes (adenocarcinoma of the colon,METS TO LIVER, LUNG) Hx Diverticulitis: Yes - Genitourinary/Gynecological Hx Genitourinary Disorders: Yes Hx Prostate Problems: Yes (HX OF PROSTATE CA (RADIATION PROSTATE SEEDS)) - Psychiatric Hx Psychophysiologic Disorder: Yes (SMOKED CIGARETTES AND CIGARS QUIT 1973) Hx Anxiety: No Hx Substance Use: No - Surgical History Other/Comment: L HEMICOLECTOMY (COLOSTOMY IN PLACE) - Anesthesia Hx Anesthesia Reactions: No Hx Malignant Hyperthermia: No - Suicidal Assessment Feels Threatened In Home Enviroment: No Family/Social History - Physician Review Nursing Documentation Reviewed: Yes Family/Social History: Unknown Family HX Smoking Status: Never Smoked Hx Alcohol Use: No Hx Substance Use: No Allergies/Home Meds Allergies/Adverse Reactions: Allergies No Known Allergies Allergy (Verified 02/05/17 08:49) Home Medications: Home Meds Medication Instructions Recorded Confirmed Atenolol [Tenormin] 50 mg PO BID 01/25/17 02/08/17 Verapamil [Verapamil HCl] 180 mg PO DAILY 01/25/17 02/07/17 Apixaban [Eliquis] 2.5 mg PO BID 02/08/17 02/08/17 Atorvastatin [Lipitor] 40 mg PO 02/08/17 Digoxin [Lanoxin] 0.125 mg PO DAILY 02/08/17 02/08/17 Review of Systems - Physician Review All systems were reviewed & negative as marked: Yes - Review of Systems Constitutional: absent: Fevers Eyes: absent: Vision Changes Respiratory: absent: Cough Cardiovascular: MULLER. absent: Chest Pain (no chest pain but has chest pressure) Gastrointestinal: Other (fluid build up in the abdomen). absent: Abdominal Pain , Nausea, Vomiting, Hematochezia, Hematemesis Genitourinary Male: absent: Hematuria Musculoskeletal: absent: Back Pain, Neck Pain Skin: absent: Rash Neurological: absent: Headache, Dizziness Physical Exam Vital Signs Reviewed: Yes Vital Signs Pulse Resp BP Pulse Ox 02/21/17 14:42 102 H 18 123/71 98 02/21/17 13:39 110 H 20 128/72 93 L 02/21/17 13:38 110 H 128/72 02/21/17 13:22 115 H 141/85 02/21/17 11:45 125 H 18 107/58 L 96 Temperature: Afebrile Blood Pressure: Normal Pulse: Tachycardic Respiratory Rate: Tachypneic Appearance: Positive for: Non-Toxic Pain Distress: None Mental Status: Positive for: Alert and Oriented X 3 - Systems Exam Head: Present: Atraumatic, Normocephalic Pupils: Present: PERRL Conjunctiva: Present: Normal Mouth: Present: Moist Mucous Membranes Pharnyx: Present: Normal. No: ERYTHEMA, EXUDATE Neck: Present: Normal Range of Motion. No: JVD Respiratory/Chest: Present: Good Air Exchange, Decreased Breath Sounds (at the right base). No: Respiratory Distress, Accessory Muscle Use Cardiovascular: Present: Normal S1, S2, Irregular Rhythm, Tachycardic. No: Murmurs Abdomen: Present: Distention (with dullness to percussion), Ostomy Tubes. No: Tenderness, Normal Bowel Sounds (dull on percussion), Peritoneal Signs Back: Present: Normal Inspection Upper Extremity: Present: Normal Inspection. No: Cyanosis, Edema Lower Extremity: Present: Edema (2+ pitting edema bilaterally) Neurological: Present: GCS=15, CN II-XII Intact, Speech Normal Skin: Present: Warm, Dry, Normal Color. No: Rashes Psychiatric: Present: Alert, Oriented x 3, Normal Insight, Normal Concentration Medical Decision Making ED Course and Treatment: 02/21/17 12:03 Impression: A 82 year old male with fluid in the abdomen, generalized weakness and dyspnea on exertion. Differential Diagnosis included but are not limited to: Ascites vs. Right Pleural effusion vs. Rapid Atrial fibrillation vs. PNA vs. CHF vs. PE Plan: -- EKG -- Chest X-ray -- Bilateral Lower Extremity Duplex Ultrasound -- Labs -- Urinalysis -- Reassess and disposition Prior Visits: Notes and results from previous visits were reviewed. The patient last presented to the emergency department on 02/06/17 for evaluation of epistaxis. Progress Notes: 02/21/17 12:47 Chest X-ray: Creator : Ace Guerrier MD COMPARISON: 02/06/2017 FINDINGS: LUNGS: There is an infiltrate at the right lung base consistent with pneumonia. PLEURA: No significant pleural effusion identified, no pneumothorax apparent. CARDIOVASCULAR: Normal. OSSEOUS STRUCTURES: No significant abnormalities. VISUALIZED UPPER ABDOMEN: Normal. OTHER FINDINGS: None. IMPRESSION: Right lower lobe pneumonia 02/21/17 14:49 Patient with noted history. Labs with leukocytosis (which is chronic). CXR however shows RLL infiltrate - will start on iv antibiotics. Patient also started on cardizem drip for rapid afib. He is hemodynamically stable. Patient also with abdominal distention, likely ascites - will likely need paracentesis. Will need to be admitted for iv anitbiotics and paracentesis given his dyspnea. Case discussed with Dr. Franklin. - Lab Interpretations Lab Results: 02/21/17 11:40 02/21/17 11:40 Lab Results 02/21/17 11:40: Digoxin 0.6 L 02/21/17 11:40: Sodium 133, Potassium 5.0, Chloride 101, Carbon Dioxide 18 L, Anion Gap 19, BUN 34 H, Creatinine 1.4, Est GFR ( Amer) 59, Est GFR (Non- Af Amer) 49, Random Glucose 88, Calcium 8.8, Total Bilirubin 2.6 H, AST 202 H, ALT 53, Alkaline Phosphatase 969 H, Lactate Dehydrogenase 1358 H, Total Creatine Kinase 151, Troponin I 0.03 D, NT-Pro-B Natriuret Pep 5130 H, Total Protein 5.6 L, Albumin 2.7 L, Globulin 3.0, Albumin/Globulin Ratio 0.9 L 02/21/17 11:40: PT 12.8 H, INR 1.19 H, APTT 30.3 02/21/17 11:40: WBC 18.0 H D, RBC 4.56, Hgb 11.9 L, Hct 37.3 L, MCV 81.8, MCH 26.1, MCHC 31.9, RDW 20.2 H, Plt Count 410, MPV 10.0, Gran % 68.2 H, Lymph % ( Auto) 16.6 L, [place] % (Auto) 14.7 H, Eos % (Auto) 0.3 L, Baso % (Auto) 0.2, Gran # 12.28 H, Lymph # 3.0, [place] # 2.7 H, Eos # 0.1, Baso # 0.03 I have reviewed the lab results: Yes - RAD Interpretation Radiology Orders: 02/21/17 11:52 CHEST PORTABLE [RAD] Stat 02/21/17 12:07 DUPLEX LOWER EXTRM VEIN BILAT [US] Stat - EKG Interpretation EKG Interpretation (Text): 02/21/17 14:57 afib @ 115 with RBBB; no ST/T changes; normal intervals. Interpreted by ED Physician: Yes Type: 12 lead EKG Comparison: Similar to previous EKG (02/06/17) - Medication Orders Current Medication Orders: diltiaZEM IVPB 100mg in NS (Cardizem 100mg In Ns) 100 mls @ 4 mls/hr IV .Q24H PRN; Protocol; 4 MG/HR PRN Reason: TITRATE PER MD ORDER Last Admin: 02/21/17 13:38 Dose: 4 mls/hr Cefepime HCl (Maxipime 1gm) 1 gm in 100 mls @ 100 mls/hr IVPB Q24H KRIS PRN Reason: Protocol Vancomycin HCl (Vancomycin 1gm) 1 gm in 250 mls @ 167 mls/hr IVPB STAT STA PRN Reason: Protocol Stop: 02/21/17 14:56 Discontinued Medications Diltiazem HCl (Cardizem) 10 mg IVP STAT STA Stop: 02/21/17 13:00 Last Admin: 02/21/17 13:22 Dose: 10 mg - Scribe Statement The provider has reviewed the documentation as recorded by the Kei Peters Provider Scribe Attestation: All medical record entries made by the Kei were at my direction and personally dictated by me. I have reviewed the chart and agree that the record accurately reflects my personal performance of the history, physical exam, medical decision making, and the department course for this patient. I have also personally directed, reviewed, and agree with the discharge instructions and disposition. Disposition/Present on Arrival - Present on Arrival Any Indicators Present on Arrival: No History of DVT/PE: No History of Uncontrolled Diabetes: No Urinary Catheter: No History of Decub. Ulcer: No History Surgical Site Infection Following: None - Disposition Have Diagnosis and Disposition been Completed?: Yes Diagnosis: Pneumonia, Dyspnea on exertion Disposition: HOSPITALIZED Disposition Time: 13:25 Patient Plan: Admission, Telemetry Condition: FAIR
[2017-02-21 12:24] LABS: BASO # 0.03 K/mm3 (0.0-2.0); BASO % 0.2 % (0.0-3.0); EOS # 0.1 (0.0-0.7); EOS % 0.3 % (1.5-5.0); GRAN # 12.28 (1.4-6.5); GRAN % 68.2 % (50.0-68.0); HEMOGLOBIN 11.9 gm/dL (14.0-18.0); LYMPH % 16.6 % (22.0-35.0); MEAN CELL VOLUME 81.8 fL (80.0-105.0); MEAN CORPUSCULAR HEMOGLOBIN 26.1 pg (25.0-35.0); MEAN CORPUSCULAR HGB CONC 31.9 g/dl (31.0-37.0); MONO # 2.7 (0.1-0.6); MONO % 14.7 % (1.0-6.0); PLATELET COUNT 410 10^3/uL (120.0-450.0); RBC 4.56 10^6/uL (3.5-6.1); RED CELL DISTRIBUTION WIDTH 20.2 % (11.5-14.5)
[2017-02-21 12:31] LABS: ALB/GLOB RATIO 0.9 (1.1-1.8); ALBUMIN 2.7 g/dL (3.0-4.8); CALCIUM 8.8 mg/dL (8.4-10.5)
[2017-02-21 12:32] LABS: INR 1.19 (0.93-1.08); PARTIAL THROMBOPLASTIN TIME 30.3 Seconds (23.7-30.8); PROTHROMBIN TIME 12.8 Seconds (9.9-11.8)
--- NOTE | 2017-02-21 12:47 | RAD ---
HISTORY: sob COMPARISON: 02/06/2017 FINDINGS: LUNGS: There is an infiltrate at the right lung base consistent with pneumonia. PLEURA: No significant pleural effusion identified, no pneumothorax apparent. CARDIOVASCULAR: Normal. OSSEOUS STRUCTURES: No significant abnormalities. VISUALIZED UPPER ABDOMEN: Normal. OTHER FINDINGS: None. IMPRESSION: Right lower lobe pneumonia
[2017-02-21] MEDS ORDERED: diltiaZEM IVPB 100mg in NS 100 ML IV PRN (12:59)
[2017-02-21] MEDS ORDERED: Vancomycin 1gm in NS 250ml 1 GM/250 ML BAG IVPB STA (13:27)
[2017-02-21] MEDS ORDERED: Cefepime 1gm in NS 100ml 1 GM/100 ML BAG IVPB SCH (13:30)
[2017-02-21 13:56] LABS: TROPONIN I 0.03 ng/mL
--- NOTE | 2017-02-21 16:34 | CARD ---
APPROVED REPORT EKG Measurement Heart [id number] <Conclusion> Atrial fibrillation with rapid ventricular response Right bundle branch block Abnormal ECG
[2017-02-21] MEDS: diltiaZEM IVPB 100mg in NS 100 ML IV PRN (18:17)
[2017-02-21] MEDS ORDERED: Pneumococcal 23-Valent Vaccine IM ONE (19:38)
--- NOTE | 2017-02-21 22:28 | CP.PCM.CON ---
History of Present Illness - History of Present Illness History of Present Illness: CC SOB HPI 82yo m w known ca colon stage IV w mets to liver/lung admitted for eval w incr SOB , rapid afib and now w RLL pneumonia, with incr abd girth, incr pl eff , and worsening PET scan findings of 02/16/17, w CEA also rising. Review of Systems - Review of Systems Systems not reviewed;Unavailable: Respiratory Distress - Constitutional Constitutional: Weight Gain, Weakness - EENT Eyes: As Per HPI Ears: As Per HPI Nose/Mouth/Throat: As Per HPI - Cardiovascular Cardiovascular: Irregular Heart Rhythm, Pedal Edema, Rapid Heart Rate - Respiratory Respiratory: Dyspnea, Dyspnea on Exertion - Gastrointestinal Additional comments: icreasing abd girth - Genitourinary Genitourinary: As Per HPI - Musculoskeletal Musculoskeletal: Back Pain, Muscle Weakness - Integumentary Integumentary: As Per HPI - Neurological Neurological: As Per HPI - Psychiatric Psychiatric: As Per HPI - Hematologic/Lymphatic Hematologic: As Per HPI Past Patient History - Infectious Disease Hx of Infectious Diseases: None - Past Social History Smoking Status: Former Smoker - CARDIAC Hx Cardiac Disorders: Yes Hx Angina: No Hx Cardia Arrhythmia: Yes Hx Hypertension: Yes Hx Peripheral Vascular Disease: Yes - PULMONARY Hx Respiratory Disorders: Yes (PLEURAL EFFUSION 12-11-16) Other/Comment: LUNG CA - NEUROLOGICAL Hx Neurological Disorder: No - HEENT Hx HEENT Problems: Yes Other/Comment: [place] WEARS B/L HEARING AIDS, WEARS EYEGLASSES (READING) - RENAL Hx Chronic Kidney Disease: No - ENDOCRINE/METABOLIC Hx Endocrine Disorders: No - HEMATOLOGICAL/ONCOLOGICAL Hx Blood Disorders: Yes Hx Cancer: Yes (Colon CA with mets to liver and lungs) Hx Chemotherapy: Yes - INTEGUMENTARY Hx Dermatological Problems: Yes (COLOSTOMY) - MUSCULOSKELETAL/RHEUMATOLOGICAL Hx Musculoskeletal Disorders: No Hx Falls: Yes - GASTROINTESTINAL Hx Gastrointestinal Disorders: Yes (adenocarcinoma of the colon,METS TO LIVER, LUNG) Hx Diverticulitis: Yes - GENITOURINARY/GYNECOLOGICAL Hx Genitourinary Disorders: Yes Hx Prostate Problems: Yes (HX OF PROSTATE CA (RADIATION PROSTATE SEEDS)) - PSYCHIATRIC Hx Psychophysiologic Disorder: Yes (SMOKED CIGARETTES AND CIGARS QUIT 1973) Hx Anxiety: No Hx Substance Use: No - SURGICAL HISTORY Hx Surgeries: Yes Other/Comment: L HEMICOLECTOMY (COLOSTOMY IN PLACE) - ANESTHESIA Hx Anesthesia Reactions: No Hx Malignant Hyperthermia: No Meds Allergies/Adverse Reactions: Allergies Allergy/AdvReac Type Severity Reaction Status Date / Time No Known Allergies Allergy Verified 02/21/17 18:07 - Medications Medications: Current Medications Acetaminophen (Tylenol 325mg Tab) 650 mg PO Q4H PRN PRN Reason: Pain, Mild (1-3) Apixaban (Eliquis) 2.5 mg PO BID KRIS PRN Reason: Protocol Last Admin: 02/21/17 18:15 Dose: 2.5 mg Atorvastatin Calcium (Lipitor) 40 mg PO DIN KRIS Last Admin: 02/21/17 18:15 Dose: 40 mg Cefepime HCl (Maxipime 1gm) 1 gm in 100 mls @ 100 mls/hr IVPB Q24H KRIS PRN Reason: Protocol Last Admin: 02/21/17 17:11 Dose: 100 mls/hr diltiaZEM IVPB 100mg in NS (Cardizem 100mg In Ns) 100 mls @ 5 mls/hr IV .Q20H PRN; Protocol; 5 MG/HR PRN Reason: TITRATE PER MD ORDER Last Admin: 02/21/17 18:17 Dose: 5 mg/hr, 5 mls/hr Physical Exam - Constitutional Appears: In Acute Distress, Chronically Ill - Head Exam Head Exam: NORMOCEPHALIC - Eye Exam Eye Exam: Normal appearance - ENT Exam ENT Exam: Mucous Membranes Moist - Neck Exam Neck exam: Positive for: Normal Inspection - Respiratory Exam Respiratory Exam: Decreased Breath Sounds, Rhonchi, Respiratory Distress - Cardiovascular Exam Cardiovascular Exam: Tachycardia, Irregular Rhythm - GI/Abdominal Exam GI & Abdominal Exam: Distended, Firm, Hypoactive Bowel Sounds - Rectal Exam Additional comments: viable colostomy - Extremities Exam Extremities exam: Positive for: pedal edema - Back Exam Back exam: NORMAL INSPECTION - Neurological Exam Neurological exam: Alert, Oriented x3 - Skin Skin Exam: Normal Color Results - Vital Signs Recent Vital Signs: Last Vital Signs Temp 97.1 F L 02/21/17 19:15 Pulse 102 H 02/21/17 19:15 Resp 18 02/21/17 19:15 BP 123/71 02/21/17 19:15 Pulse Ox 96 02/21/17 15:35 - Labs Result Diagrams: 02/21/17 11:40 02/21/17 11:40 Labs: Laboratory Results - last 24 hr 02/21/17 14:10 Procalcitonin 3.79 H Assessment & Plan (1) Malignant ascites Status: Acute (2) Pneumonia Status: Acute (3) Atrial fibrillation with RVR Status: Acute (4) Dyspnea on exertion Status: Acute (5) Metastatic colon cancer to liver Status: Acute (6) Pleural effusion Status: Acute (7) Prostate CA Status: Acute (8) PVD (peripheral vascular disease) with claudication Status: Acute (9) Colostomy hernia Status: Acute - Assessment and Plan (Free Text) Plan: Admit to telemetry Rx w abs, consult ID, vasc for paracentesis/thoracentesis as indicated . Monitor clinically consider palliative care /hospice
[2017-02-22] MEDS: diltiaZEM IVPB 100mg in NS 100 ML IV PRN (07:02)
--- NOTE | 2017-02-22 07:19 | CP.PCM.PN ---
<Sarah Archer - Last Filed: 02/22/17 13:57> Subjective - Date & Time of Evaluation Date of Evaluation: 02/22/17 Time of Evaluation: 07:19 - Subjective Subjective: PGY-[address] 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 able to finish 1 senstences Objective - Vital Signs/Intake and Output Vital Signs (last 24 hours): Temp Pulse Resp BP Pulse Ox 97.7 F 111 H 20 121/76 95 02/22/17 06:00 02/22/17 06:00 02/22/17 06:00 02/22/17 06:00 02/22/17 06:00 Intake and Output: 02/22/17 02/22/17 06:59 18:59 Intake Total 305 100 Output Total 200 Balance 105 100 - Medications Medications: Current Medications Acetaminophen (Tylenol 325mg Tab) 650 mg PO Q4H PRN PRN Reason: Pain, Mild (1-3) Apixaban (Eliquis) 2.5 mg PO BID [facility] PRN Reason: Protocol Last Admin: 02/21/17 18:15 Dose: 2.5 mg Atorvastatin Calcium (Lipitor) 40 mg PO DIN [facility] Last Admin: 02/21/17 18:15 Dose: 40 mg Cefepime HCl (Maxipime 1gm) 1 gm in 100 mls @ 100 mls/hr IVPB Q24H [facility] PRN Reason: Protocol Last Admin: 02/21/17 17:11 Dose: 100 mls/hr diltiaZEM IVPB 100mg in NS (Cardizem 100mg In Ns) 100 mls @ 5 mls/hr IV .Q20H PRN; Protocol; 5 MG/HR PRN Reason: TITRATE PER MD ORDER Last Admin: 02/22/17 07:02 Dose: 5 mg/hr, 5 mls/hr Doxycycline Hyclate 100 mg/ (Sodium Chloride) 100 mls @ 100 mls/hr IVPB Q12 [facility] PRN Reason: Protocol Last Admin: 02/21/17 23:51 Dose: 100 mls/hr - Labs Labs: PT 12.8 Seconds (9.9-11.8) H 02/21/17 11:40 INR 1.19 (0.93-1.08) H 02/21/17 11:40 APTT 30.3 Seconds (23.7-30.8) 02/21/17 11:40 - Constitutional Appears: Chronically Ill - Head Exam Head Exam: NORMAL INSPECTION, NORMOCEPHALIC - Eye Exam Eye Exam: EOMI, Normal appearance, PERRL. absent: Scleral icterus Pupil Exam: NORMAL ACCOMODATION - ENT Exam ENT Exam: Mucous Membranes Moist - Respiratory Exam Respiratory Exam: Decreased Breath Sounds (LLL). absent: Rales, Rhonchi, Wheezes - Cardiovascular Exam Cardiovascular Exam: REGULAR RHYTHM, +S1, +S2 - GI/Abdominal Exam GI & Abdominal Exam: Distended, Soft, Hypoactive Bowel Sounds. absent: Guarding , Rigid Additional comments: No fluid wave. Hypotympanic percussion R - Extremities Exam Extremities Exam: Normal Capillary Refill, Pedal Edema (3+ b/l). absent: Calf Tenderness - Neurological Exam Neurological Exam: Alert, Awake, Oriented x3 - Psychiatric Exam Psychiatric exam: Normal Affect, Normal Mood - Skin Skin Exam: Dry, Warm Assessment and Plan - Assessment and Plan (Free Text) Plan: 82 M with colon ca stage IV w mets to liver/lung s/p L hemicolectomy and Hx prostate CA s/p radiation prostate seeds admitted progressive dyspnea, rapid afib, and now w/ RLL pneumonia, with increase abd girth, increase pleural effusion, and worsening PET scan findings of 02/16/17, w CEA rising. Dyspnea and generalized body edema likely from Plan: Pneumonia, RLL infiltrate Sepsis, leukocytosis (18), procalc 3.79 - cefepime and doxycycline pleural effusion Ascites, last paracentesis 11 month ago - consult IR for paracentesis/thoracentesis - LDH 1358 stage 4 colon ca; prostate ca - L colostomy - LDH 1358 - last chemo 2 weeks ago A-fib on diliazem gtt and eliquis 2.5 BID - BNP 5130 - HOLD home digioxin, atenolol Nomocytic anemia, H/H 11.9/37 Transaminitis Likely liver mets - AST 200, ALT 53 - Alk phos 969 - On lipitor 40 Disposition - Consider palliative care consult Consult - ID = Ainsleyian - Rapid A-fib = Son - Heme/Onc = Ollie - IR = Verduzco Will s/r/d/ w Dr. Levin <Janet Levin P - Last Filed: 02/25/17 00:55> Objective - Vital Signs/Intake and Output Vital Signs (last 24 hours): Temp Pulse Resp BP Pulse Ox 97.5 F L 125 H 18 137/78 100 02/24/17 06:00 02/24/17 09:33 02/24/17 09:00 02/24/17 09:33 02/24/17 09:00 Intake and Output: 02/24/17 02/25/17 18:59 06:59 Intake Total 300 Output Total 401 Balance -101 - Labs Labs: 02/24/17 07:04 02/24/17 07:04 PT 12.8 Seconds (9.9-11.8) H 02/21/17 11:40 INR 1.19 (0.93-1.08) H 02/21/17 11:40 APTT 30.3 Seconds (23.7-30.8) 02/21/17 11:40 Attending/Attestation - Attestation I have personally seen and examined this patient.: Yes I have fully participated in the care of the patient.: Yes I have reviewed all pertinent clinical information, including history, physical exam and plan: Yes
[2017-02-22 07:44] LABS: BASO # 0.05 K/mm3 (0.0-2.0); BASO % 0.3 % (0.0-3.0); EOS # 0.2 (0.0-0.7); EOS % 0.9 % (1.5-5.0); GRAN # 11.64 (1.4-6.5); GRAN % 66.8 % (50.0-68.0); HEMOGLOBIN 11.8 gm/dL (14.0-18.0); LYMPH # 3.4 (1.2-3.4); LYMPH % 19.4 % (22.0-35.0); MEAN CELL VOLUME 80.4 fL (80.0-105.0); MEAN CORPUSCULAR HGB CONC 32.4 g/dl (31.0-37.0); MEAN PLATELET VOLUME 10.1 fl (7.0-11.0); MONO # 2.2 (0.1-0.6); MONO % 12.6 % (1.0-6.0); PLATELET COUNT 378 10^3/uL (120.0-450.0); RBC 4.53 10^6/uL (3.5-6.1); RED CELL DISTRIBUTION WIDTH 20.1 % (11.5-14.5); WHITE BLOOD COUNT 17.4 10^3/ul (4.5-11.0)
[2017-02-22 07:59] LABS: ALB/GLOB RATIO 0.8 (1.1-1.8); ALBUMIN 2.4 g/dL (3.0-4.8); ALT/SGPT 53 U/L (7-56); AST/SGOT 167 U/L (15-59); BLOOD UREA NITROGEN 36 mg/dL (7-21); CALCIUM 8.5 mg/dL (8.4-10.5); GFR AFRICAN-AMERICAN > 60; GFR NON-AFRICAN AMERICAN 58
--- NOTE | 2017-02-22 12:51 | CP.PCM.CON ---
History of Present Illness - History of Present Illness History of Present Illness: Palliative consult requested by Dr Fabian Franklin Reason: Advance care planning 82 year old male who presented with shortness of breath,weakness and increasing abdominal distention. He also reports swelling of both lower extremities. He was found to be in atrial fibrillation with rapid ventricular response.Chest x ray showed RLL infiltrate findings consistent with pneumonia. Lower extremities ultrasound was negative for DVT PMHx: atrial fibrillation, metastatic colon cancer,colostomy, HTN, hyperlipidemia,PVD, prostate cancer s/p seed implant, hard of hearing. Family History: Non contributory. 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, WEARS EYEGLASSES (READING) - RENAL Hx Chronic Kidney Disease: No - ENDOCRINE/METABOLIC Hx Endocrine Disorders: No - HEMATOLOGICAL/ONCOLOGICAL Hx Blood Disorders: Yes Hx Cancer: Yes (Colon CA with mets to liver and lungs) Hx Chemotherapy: Yes - INTEGUMENTARY Hx Dermatological Problems: Yes (COLOSTOMY) - MUSCULOSKELETAL/RHEUMATOLOGICAL Hx Musculoskeletal Disorders: No Hx Falls: Yes - GASTROINTESTINAL Hx Gastrointestinal Disorders: Yes (adenocarcinoma of the colon,METS TO LIVER, LUNG) Hx Diverticulitis: Yes - GENITOURINARY/GYNECOLOGICAL Hx Genitourinary Disorders: Yes Hx Prostate Problems: Yes (HX OF PROSTATE CA (RADIATION PROSTATE SEEDS)) - PSYCHIATRIC Hx Psychophysiologic Disorder: Yes (SMOKED CIGARETTES AND CIGARS QUIT 1973) Hx Anxiety: No Hx Substance Use: No - SURGICAL HISTORY Hx Surgeries: Yes Other/Comment: L HEMICOLECTOMY (COLOSTOMY IN PLACE) - ANESTHESIA Hx Anesthesia Reactions: No Hx Malignant Hyperthermia: No Meds Allergies/Adverse Reactions: Allergies Allergy/AdvReac Type Severity Reaction Status Date / Time No Known Allergies Allergy Verified 02/21/17 18:07 - Medications Medications: Current Medications Acetaminophen (Tylenol 325mg Tab) 650 mg PO Q4H PRN PRN Reason: Pain, Mild (1-3) Apixaban (Eliquis) 2.5 mg PO BID [facility] PRN Reason: Protocol Last Admin: 02/22/17 10:03 Dose: 2.5 mg Atorvastatin Calcium (Lipitor) 40 mg PO DIN [facility] Last Admin: 02/21/17 18:15 Dose: 40 mg Diltiazem HCl (Cardizem) 60 mg PO TID [facility] Last Admin: 02/22/17 10:02 Dose: 60 mg Furosemide (Lasix) 40 mg IVP DAILY [facility] Last Admin: 02/22/17 10:03 Dose: 40 mg diltiaZEM IVPB 100mg in NS (Cardizem 100mg In Ns) 100 mls @ 5 mls/hr IV .Q20H PRN; Protocol; 5 MG/HR PRN Reason: TITRATE PER MD ORDER Last Admin: 02/22/17 07:02 Dose: 5 mg/hr, 5 mls/hr Doxycycline Hyclate 100 mg/ (Sodium Chloride) 100 mls @ 100 mls/hr IVPB Q12 [facility] PRN Reason: Protocol Last Admin: 02/22/17 10:26 Dose: 100 mls/hr Cefepime HCl (Maxipime 1gm) 1 gm in 100 mls @ 100 mls/hr IVPB Q8 [facility] PRN Reason: Protocol Stop: 03/02/17 14:01 Metoprolol Tartrate (Lopressor) 25 mg PO BID [facility] Last Admin: 02/22/17 10:02 Dose: 25 mg Physical Exam - Constitutional Appears: No Acute Distress, Chronically Ill - Head Exam Head Exam: NORMAL INSPECTION - Eye Exam Eye Exam: Normal appearance, PERRL - ENT Exam ENT Exam: Mucous Membranes Moist, Normal Oropharynx - Neck Exam Neck exam: Positive for: Normal Inspection - Respiratory Exam Respiratory Exam: Decreased Breath Sounds, NORMAL BREATHING PATTERN - Cardiovascular Exam Cardiovascular Exam: Irregular Rhythm, +S1, +S2 - GI/Abdominal Exam GI & Abdominal Exam: Distended, Normal Bowel Sounds, Soft - Extremities Exam Additional comments: 2+ bilateral lower extremity edema - Neurological Exam Neurological exam: Alert, Oriented x3 - Skin Skin Exam: Dry, Warm - Additional Findings Additional findings: Palliative performance scale rating 50% Results - Vital Signs Recent Vital Signs: Last Vital Signs Temp 98.3 F 02/22/17 11:57 Pulse 95 H 02/22/17 11:57 Resp 20 02/22/17 11:57 BP 128/68 02/22/17 11:57 Pulse Ox 95 02/22/17 06:00 - Labs Result Diagrams: 02/23/17 06:00 02/23/17 06:00 Labs: Laboratory Results - last 24 hr 02/21/17 02/22/17 02/22/17 14:10 07:00 07:00 WBC 17.4 H RBC 4.53 Hgb 11.8 L Hct 36.4 L MCV 80.4 MCH 26.0 MCHC 32.4 RDW 20.1 H Plt Count 378 MPV 10.1 Gran % 66.8 Lymph % (Auto) 19.4 L Sterling % (Auto) 12.6 H Eos % (Auto) 0.9 L Baso % (Auto) 0.3 Gran # 11.64 H Lymph # 3.4 Sterling # 2.2 H Eos # 0.2 Baso # 0.05 Sodium 132 Potassium 5.0 Chloride 102 Carbon Dioxide 20 L Anion Gap 15 BUN 36 H Creatinine 1.2 Est GFR ( Amer) > 60 Est GFR (Non-Af Amer) 58 Random Glucose 74 Calcium 8.5 Total Bilirubin 2.5 H AST 167 H ALT 53 Alkaline Phosphatase 1015 H Total Protein 5.3 L Albumin 2.4 L Globulin 2.9 Albumin/Globulin Ratio 0.8 L Procalcitonin 3.79 H Assessment & Plan - Assessment and Plan (Free Text) Assessment: 82 year old male with a history of metastatic colon cancer who is admitted with atrial fibrillation with RVR, ascites, lower extremity edema,pneumonia. Mr Davey is alert and oriented. He lives alone and states he is able to manage all ADL's, but has become weaker over the past few days. His last chemotherapy was two weeks ago. He denies pain, nausea, vomiting or weight loss. He knows that he has colon cancer but states he's doing okay because it "hasn't spread to other places." I explained that the fluid that is accumulating in his abdomen may be indicative that the cancer is spreading. When asked if he had an Advanced Directive, the patient stated that he did but was not sure where it is. Mr. Davey stated his brother Jose is health care proxy and that he knows "what to do". I specifically asked the patient if he wanted CPR/intubation /mechanical ventilation if his condition worsened. Mr Davey indicated that he does not want these things done and wants to "peacefully". He is agreeable to initiating DNR/ DNI today. I also spoke Jsoe, Mr Small's brother via phone. He affirms that the patient has an Advanced Directive, that he is the health care proxy and that the patient wants to be DNR/DNI. I spoke about completing a POLST. The brother is agreeable and we will discuss further with the patient tomorrow. Time spent in goals of care and advance care planning discussion, 30 minutes Plan: As discussed with Dr Fabian Franklin, DNR/DNI Will continue palliative support and establish future goals of care.
[2017-02-22] MEDS: Cefepime 1gm in NS 100ml 1 GM/100 ML BAG IVPB SCH ×2 (13:58→21:14)
[2017-02-22 17:41] LABS: BODY FLUID TYPE PERITONEAL
--- NOTE | 2017-02-22 19:45 | US ---
PROCEDURE: Ultrasound guided paracentesis. HISTORY: Metastatic colon CA. New onset ascites. Evaluate for malignancy. Abdominal pain and distension with shortness of breath. PHYSICIAN(S): Hugh Verduzco MD. TECHNIQUE: The relative risks and indications for the procedure were explained to the patient and informed written consent obtained. Sonography of the abdomen was performed in a supine position. This revealed a moderate to large amount of non-loculated ascites, greatest in the right lower quadrant. A puncture site was selected and the area was prepped and draped in the usual sterile fashion. 1% Xylocaine was used to anesthetize the skin and soft tissues. A 7 Lao paracentesis catheter was trocared into the right lower quadrantand 7800 cc of green -yellow fluid aspirated. The appropriate labs were sent. IMPRESSION: Ultrasound-guided paracentesis in the right lower quadrant. 7800 cc of fluid were aspirated. Labs were sent
[2017-02-22 20:05] LABS: BF GROSS APPEARANCE CLEAR (CLEAR)
[2017-02-22 20:07] LABS: BODY FLUID TOTAL COUNT 100 (0-0)
[2017-02-22 21:46] LABS: BODY FLUID MONO/MACROPHAGE 8 % (0-0)
--- NOTE | 2017-02-22 22:33 | CP.PCM.PN ---
Subjective - Date & Time of Evaluation Date of Evaluation: 02/22/17 Time of Evaluation: 22:33 - Subjective Subjective: Seen at bed side for he complained of abdominal pain, pain/pressure, 6/10, no radiation, in LLQ above colostomy site, also can not sleep. Is S/P paracentesis today where 7800 CC fluid was drained. Has no other complaints. Denies chest pain, sob, nausea, vomiting. Medical record was reviewed. 82 year old white male was admitted with generalized weakness, dyspnea, PNA. Has PMH of HTN, atrial fibrillation, stage IV colon cancer with mets, S/P chemotherapy, colon resection, colostomy. Objective - Vital Signs/Intake and Output Vital Signs (last 24 hours): Temp Pulse Resp BP Pulse Ox 98.3 F 80 20 108/59 L 95 02/22/17 11:57 02/22/17 18:26 02/22/17 11:57 02/22/17 18:26 02/22/17 06:00 Intake and Output: 02/22/17 02/23/17 18:59 06:59 Intake Total 1120 Output Total 700 Balance 420 - Medications Medications: Current Medications Acetaminophen (Tylenol 325mg Tab) 650 mg PO Q4H PRN PRN Reason: Pain, Mild (1-3) Apixaban (Eliquis) 2.5 mg PO BID [facility] PRN Reason: Protocol Last Admin: 02/22/17 18:24 Dose: 2.5 mg Atorvastatin Calcium (Lipitor) 40 mg PO DIN [facility] Last Admin: 02/22/17 18:25 Dose: 40 mg Diltiazem HCl (Cardizem) 60 mg PO TID [facility] Last Admin: 02/22/17 18:25 Dose: 60 mg Furosemide (Lasix) 40 mg IVP DAILY [facility] Last Admin: 02/22/17 10:03 Dose: 40 mg diltiaZEM IVPB 100mg in NS (Cardizem 100mg In Ns) 100 mls @ 5 mls/hr IV .Q20H PRN; Protocol; 5 MG/HR PRN Reason: TITRATE PER MD ORDER Last Admin: 02/22/17 07:02 Dose: 5 mg/hr, 5 mls/hr Doxycycline Hyclate 100 mg/ (Sodium Chloride) 100 mls @ 100 mls/hr IVPB Q12 [facility] PRN Reason: Protocol Last Admin: 02/22/17 21:14 Dose: 100 mls/hr Cefepime HCl (Maxipime 1gm) 1 gm in 100 mls @ 100 mls/hr IVPB Q8 [facility] PRN Reason: Protocol Stop: 03/02/17 14:01 Last Admin: 02/22/17 21:14 Dose: 100 mls/hr Metoprolol Tartrate (Lopressor) 25 mg PO BID [facility] Last Admin: 02/22/17 18:26 Dose: 25 mg - Labs Labs: 02/22/17 07:00 02/22/17 07:00 PT 12.8 Seconds (9.9-11.8) H 02/21/17 11:40 INR 1.19 (0.93-1.08) H 02/21/17 11:40 APTT 30.3 Seconds (23.7-30.8) 02/21/17 11:40 Microbiology Studies 02/22/17 17:10 Gram Stain - Final Ascitic Fluid 02/21/17 14:10 Blood Culture - Preliminary Blood-Venous NO GROWTH AFTER 24 HOURS 02/21/17 14:30 Blood Culture - Preliminary Blood-Venous NO GROWTH AFTER 24 HOURS Lab Studies 02/22/17 02/22/17 02/22/17 Range/Units 17:10 07:00 07:00 WBC 17.4 H (4.5-11.0) 10^3/ul RBC 4.53 (3.5-6.1) 10^6/uL Hgb 11.8 L (14.0-18.0) gm/dL Hct 36.4 L (42.0-52.0) % MCV 80.4 (80.0-105.0) fL MCH 26.0 (25.0-35.0) pg MCHC 32.4 (31.0-37.0) g/dl RDW 20.1 H (11.5-14.5) % Plt Count 378 (120.0-450.0) 10^3/uL MPV 10.1 (7.0-11.0) fl Gran % 66.8 (50.0-68.0) % Lymph % (Auto) 19.4 L (22.0-35.0) % [place] % (Auto) 12.6 H (1.0-6.0) % Eos % (Auto) 0.9 L (1.5-5.0) % Baso % (Auto) 0.3 (0.0-3.0) % Gran # 11.64 H (1.4-6.5) Lymph # 3.4 (1.2-3.4) [place] # 2.2 H (0.1-0.6) Eos # 0.2 (0.0-0.7) Baso # 0.05 (0.0-2.0) K/mm3 Sodium 132 (132-148) mmol/L Potassium 5.0 (3.6-5.0) mmol/L Chloride 102 (98-107) mmol/L Carbon Dioxide 20 L (21-33) mmol/L Anion Gap 15 (10-20) BUN 36 H (7-21) mg/dL Creatinine 1.2 (0.5-1.4) mg/dL Est GFR ( Amer) > 60 Est GFR (Non-Af Amer) 58 Random Glucose 74 (70-110) mg/dL Calcium 8.5 (8.4-10.5) mg/dL Total Bilirubin 2.5 H (0.2-1.3) mg/dL AST 167 H (15-59) U/L ALT 53 (7-56) U/L Alkaline Phosphatase 1015 H (38-133) U/L Total Protein 5.3 L (5.8-8.3) g/dL Albumin 2.4 L (3.0-4.8) g/dL Globulin 2.9 gm/dL Albumin/Globulin Ratio 0.8 L (1.1-1.8) Fluid Source Peritoneal Fluid Appearance Clear (CLEAR) Fluid WBC 319.0 H (0.0-300.0) /uL Fluid RBC 0.0 (0.0-0.0) /uL Fluid Tot Cell Count 100 H (0-0) Fluid Neutrophils 17.0 H (0-0) % Fluid Lymphocytes 83.0 H (0-0) % Fld Monocyte/Macrophag 8 H (0-0) % Fluid Comment Yellow - Constitutional Appears: Well, No Acute Distress - Head Exam Head Exam: ATRAUMATIC, NORMAL INSPECTION, NORMOCEPHALIC Additional comments: Sitting in chair. - Eye Exam Eye Exam: Normal appearance - ENT Exam ENT Exam: Normal External Ear Exam - Neck Exam Neck Exam: Normal Inspection - Respiratory Exam Respiratory Exam: Clear to Ausculation Bilateral - Cardiovascular Exam Cardiovascular Exam: Irregular Rhythm. absent: JVD - GI/Abdominal Exam GI & Abdominal Exam: Distended, Hypoactive Bowel Sounds Additional comments: Colostomy present in LLQ area. Right L Q paracenesis site dressing clean and dry. - Rectal Exam Rectal Exam: Deferred - Exam Additional comments: Deferred. - Extremities Exam Extremities Exam: Normal Inspection - Back Exam Back Exam: NORMAL INSPECTION - Neurological Exam Neurological Exam: Alert, Oriented x3 - Psychiatric Exam Psychiatric exam: Normal Affect, Normal Mood - Skin Skin Exam: Normal Color Assessment and Plan - Assessment and Plan (Free Text) Assessment: LLQ abdominal pain.-Abd. wall pain. -Hyperacidity. -Dyspepsia. -S/P paracentesis. -Intestinal spasm? S/P paracentesis. Insomnia. HTN. Atrial fibrillation. Stage IV colon cancer. Obesity. Plan: Protonix 40 mg PO stat. Ambien 10 mg PO stat. Tylenol as per order. Further work up and contact with , if no relief. Continue present management.
[2017-02-22] MEDS ORDERED: Pantoprazole 40 mg EC Tab PO STA (22:49)
[2017-02-23] MEDS: Cefepime 1gm in NS 100ml 1 GM/100 ML BAG IVPB SCH ×3 (05:37→23:14)
[2017-02-23] MEDS: diltiaZEM IVPB 100mg in NS 100 ML IV PRN (06:08)
[2017-02-23 07:10] LABS: BASO # 0.02 K/mm3 (0.0-2.0); BASO % 0.1 % (0.0-3.0); EOS # 0.1 (0.0-0.7); EOS % 0.7 % (1.5-5.0); GRAN # 11.34 (1.4-6.5); GRAN % 69.2 % (50.0-68.0); LYMPH # 3.1 (1.2-3.4); MEAN CELL VOLUME 80.3 fL (80.0-105.0); MEAN CORPUSCULAR HEMOGLOBIN 25.5 pg (25.0-35.0); MEAN CORPUSCULAR HGB CONC 31.8 g/dl (31.0-37.0); MEAN PLATELET VOLUME 9.7 fl (7.0-11.0); MONO # 1.8 (0.1-0.6); PLATELET COUNT 313 10^3/uL (120.0-450.0); RBC 4.31 10^6/uL (3.5-6.1); WHITE BLOOD COUNT 16.4 10^3/ul (4.5-11.0)
[2017-02-23 07:15] LABS: ALB/GLOB RATIO 0.8 (1.1-1.8); ALBUMIN 2.2 g/dL (3.0-4.8); CALCIUM 8.2 mg/dL (8.4-10.5)
--- NOTE | 2017-02-23 09:17 | CON ---
DATE: 02/22/2017 CHIEF COMPLAINT: Weakness for several days. HISTORY OF PRESENT ILLNESS: This is an 82-year-old male, who was seen in the emergency room by Dr. oRbyn Wilson. The patient had been complaining of shortness of breath times several days and he has a history of atrial fibrillation; history of colon cancer, status post chemo two weeks ago; history of hypertension and hyperlipidemia and the patient was recently in a hospital in 01/2017 and the patient had a workup. The patient had colon cancer with liver and lung metastases. He also has a history of prostate cancer, a history of sensitive Staph aureus bacteremia, had a Port-A-Cath removal, and also history of syphilis, and peripheral vascular disease and now admitted with shortness of breath. He denied any fevers, any chills. He had occasional chest pain on and off. PAST MEDICAL HISTORY: Significant for colon cancer with liver and lung metastases and had chemotherapy two weeks ago with hypertension, hyperlipidemia, prostate cancer, sensitive Staph aureus bacteremia, peripheral vascular disease, and syphilis. PAST SURGICAL HISTORY: Significant for Port-A-Cath removal because of a bacteria sensitive Staph aureus bacteremia. ALLERGIES: THE PATIENT HAS NO KNOWN ALLERGIES. MEDICATIONS AT HOME: Include Lasix, verapamil, digoxin, Lipitor, atenolol which is Tenormin, and Eliquis. PHYSICAL EXAMINATION: GENERAL: The patient in bed, in no acute distress; however, chronically ill, debilitated. VITAL SIGNS: Temperature of 98, heart rate of 116, respiratory rate of 22, blood pressure is 130/80. HEENT: Unremarkable. NECK: Supple. LUNGS: Decreased breath sounds. HEART: Normal S1, S2. ABDOMEN: Soft, nontender. No organomegaly. No rebound. No guarding. LABORATORY EXAMINATION: Reveals a white count of 18,000; hemoglobin of 11, platelets of 410, and coagulation is noted. Chemistry reveals a BUN of 34; creatinine of 1.4, which is an increase in creatinine, in the past was 0.6. The patient also has a BNP of 5130, procalcitonin of 3.79, alk phos of 969, LDH is 1358 with a digoxin level of 0.6. Microbiology is pending. The patient had a chest x-ray read by Dr. Garibay, which was reported as infiltrate in the right base and the patient had an ultrasound of the lower extremities read by Dr. Hugh Verduzco, which is no evidence of a DVT is noted and Dr. Robyn Wilson's emergency room chart is reviewed. ASSESSMENT AND PLAN: This is an 82-year-old male with colon cancer with liver and lung metastases, status post chemotherapy two weeks ago, multiple hospitalizations, history of hypertension, hyperlipidemia, history of prostate cancer, history of sensitive Staphylococcus aureus bacteremia requiring a Port-A-Cath to be removed, history of syphilis and peripheral vascular disease and now admitted with tachycardia, shortness of breath, leukocytosis and infiltrate, and renal failure. Severe sepsis with a right-sided healthcare associated right lower lobe bacterial pneumonia with an elevated procalcitonin of 3.79, possibly gram-positive cocci, possible gram-negative renato in a patient with acute kidney injury. Creatinine has changed from 0.6 to 1.4. Currently, we will treat the patient with doxycycline and cefepime and we will change the cefepime from q.24 to q.8 hours pending lawton cultures and clinical response and we will make further recommendations. Bin Castellano MD
--- NOTE | 2017-02-23 09:17 | HP ---
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 The patient was recently discharged from [facility] after being admitted for atrial fibrillation with rapid ventricular response and was doing well since discharge; however, over the past several days, he has reported increasing dyspnea with exertion, which has progressed to dyspnea at rest associated with palpitations and decreased exercise tolerance. 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 Son) and was found to be in moderate respiratory distress and was advised to present to the Emergency Department for further evaluation. The patient does report cough intermittently productive of [id number] sputum, but otherwise denies fevers, chills, rigors, chest pain or hemoptysis. Upon arrival to the ED, he was noted to be afebrile, but tachycardic with a pulse of 110 and tachypneic with a respiratory rate of 24. He was also found to be mildly hypoxic with an oxygen saturation of 93% on room air. Routine laboratory studies disclosed a leukocytosis of 18,000 with 68% neutrophils, and a chest x-ray demonstrated a right lower lobe opacity. The patient received a dose of vancomycin and cefepime and was subsequently admitted to the telemetry mosley for continued management of atrial fibrillation and healthcare-associated pneumonia. PAST MEDICAL HISTORY: As per HPI, also hyperlipidemia, peripheral vascular disease, history of prostate cancer, history of tertiary syphilis, status post course of aqueous penicillin, and a history of MSSA bacteremia secondary to Port -A-Cath line sepsis. PAST SURGICAL HISTORY: As per HPI. ALLERGIES: NO KNOWN DRUG ALLERGIES. MEDICATIONS: Verapamil 180 mg p.o. daily, Eliquis 2.5 mg p.o. b.i.d., digoxin 0.125 mg p.o. daily, atenolol 50 mg p.o. b.i.d. and Lipitor 40 mgp.o. daily. FAMILY HISTORY: Significant for hypertension and bladder cancer in hisfather. SOCIAL HISTORY: The patient reports a former 30-pack year smoking history, but quit in 1973. He reports social alcohol use and denies illicit drug abuse. REVIEW OF SYSTEMS: A 14-point review of systems is negative except as per HPI. PHYSICAL EXAMINATION: VITAL SIGNS: Temperature 97.7, pulse 111, blood pressure 121/76, respiratory rate 20, oxygen saturation 95% on 2 L nasal cannula. GENERAL: Elderly man, sitting up in bed, in mild respiratory distress. HEENT: Normocephalic, atraumatic. PERRL, EOMI. No scleral icterus. No conjunctival pallor. NECK: Supple with full range of motion. No JVD. CARDIOVASCULAR: Tachycardic, irregularly irregular. LUNGS: Decreased breath sounds at the bases with bibasilar crackles and rhonchi to right base. ABDOMEN: Normoactive bowel sounds, soft, mildly distended and firm. No tenderness. Colostomy site appears intact with viable pink stoma. EXTREMITIES: Trace to 1+ lower extremity edema bilaterally. NEUROLOGIC: Awake, alert, and oriented x3. No focal motor deficits. LABORATORY DATA: WBC 17.4 with 67% neutrophils, hemoglobin 11.8, hematocrit 36 , platelets 378. Sodium 132, potassium 5, chloride 102, bicarb 20, BUN 36, creatinine 1.2, glucose 74, procalcitonin 3.79. IMAGING STUDIES: 1. Chest x-ray demonstrates right lower lobe pneumonia. 2. Lower extremity ultrasound bilaterally demonstrates no evidence of DVT. 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 PLAN: 1. Healthcare-associated pneumonia. Imaging studies reviewed and chest x-ray confirms a right lower lobe pneumonia. Laboratory studies also demonstrate an elevated procalcitonin level. Input from Dr. Chatman of Infectious Disease noted and greatly appreciated. The patient remains of doxycycline 100 mg IV q.12 and cefepime 1 g IV daily. We will continue to monitor for fever and leukocytosis. We will await culture reports, continue with supplemental oxygen and bronchodilators as needed. 2. Atrial fibrillation with rapid ventricular response. The patient remains on diltiazem drip at [address] Son of Cardiology has been consulted for further evaluation and recommendations. The patient is going to be started on Eliquis 2.5 mg p.o. b.i.d. He is also on atenolol 50 mg p.o. b.i.d. and verapamil 180 mg p.o. daily at home in addition to digoxin 0.125 mg p.o. daily. We will defer restarting these medications to Dr. Son. 3. Stage IV invasive adenocarcinoma of the colon with pulmonary and hepatic metastases. Input from Dr. Levin noted and appreciated and recent PET scan and CEA levels demonstrate progression of disease. We will consult Carolyn Davis of Palliative Care given multiple recent admissions in this patient and declining status. 4. Ascites, etiology likely secondary to hepatic metastasis. Dr. Hugh Verduzco of Interventional Radiology has been consulted for evaluation for possible therapeutic paracentesis just to alleviate some of the patient's respiratory symptoms. 5. Hypertension, blood pressure controlled. The patient remains on Cardizem drip at 5 mg per hour. We will resume home medications as per Dr. Son. 6. Hyperlipidemia. Continue with Lipitor 40 mg p.o. daily. 7. Left iliac vasoocclusive disease, continue with Eliquis 2.5 mg p.o. b.i.d. and Lipitor 40 mg p.o. daily. 8. Prophylaxis. GI prophylaxis is not indicated as the patient is eating. DVT prophylaxis is not indicated as the patient remains on Eliquis for his underlying atrial fibrillation. CODE STATUS: DNR/DNI Ghanshyam Franklin MD MTDLew
--- NOTE | 2017-02-23 09:21 | CON ---
DATE: 02/22/2017 HISTORY OF PRESENT ILLNESS: This is an 82-year-old male who presented with rapid heart rate as well as dyspnea. PAST MEDICAL HISTORY: Notable for history of chronic atrial fibrillation treated with beta blockers and Eliquis as well as verapamil. In addition, the patient has documented cancer in the past. His cardiac workup recently includes normal LV function on echocardiogram. The patient presented to the emergency room and was found to have right lower lobe pneumonia, as well as atrial fibrillation varying from 120 to 140. SOCIAL HISTORY: He is not an active smoker. REVIEW OF SYSTEMS: Was reviewed in detail. Pedal edema as well as dyspnea is his predominant cardiac symptoms, no chest pain noted. PHYSICAL EXAMINATION VITAL SIGNS: Blood pressure 121/76, heart rate is atrial fibrillation at 111. NECK: Negative JVD. CARDIOPULMONARY: Heart reveals S1 and S2. LUNGS: Decrease breath sounds in the right base. EXTREMITIES: Trace edema. EKG shows atrial fibrillation with a right bundle-branch block and nonspecific ST-T changes. LABORATORY DATA: White count 17,000. CHEMISTRY: Troponin is 0.03 and proBNP is 5130. X-ray reveals a right lower lobe pneumonia. IMPRESSION: 1. Right lower lobe pneumonia. 2. Chronic atrial fibrillation with rapid heart rate. 3. Metastatic colon carcinoma. 4. Dyspnea. 5. Mild congestive heart failure. Given these findings, the patient was started on IV Cardizem. We will add p.o. Cardizem today as well as slowly adding beta blockers. IV antibiotics has been ordered. In addition, we will give the patient one dose of IV Lasix to see whether this can help his dyspnea. Hugh Son MD
[2017-02-23] MEDS ORDERED: Digoxin 500 mcg/2ml (0.5 mg/2ml) Inj IVP STA (09:58)
[2017-02-23] MEDS ORDERED: Digoxin 500 mcg/2ml (0.5 mg/2ml) Inj IVP ONE (09:59)
--- NOTE | 2017-02-23 10:09 | CP.PCM.PN ---
Subjective - Date & Time of Evaluation Date of Evaluation: 02/23/17 Time of Evaluation: 09:00 - Subjective Subjective: Awake, alert. Denies pain, shortness of breath. Objective - Vital Signs/Intake and Output Vital Signs (last 24 hours): Temp Pulse Resp BP Pulse Ox 97.9 F 112 H 20 125/76 93 L 02/23/17 07:52 02/23/17 09:58 02/23/17 07:52 02/23/17 09:58 02/23/17 07:52 Intake and Output: 02/23/17 02/23/17 06:59 18:59 Intake Total 1540 Output Total 700 Balance 840 - Medications Medications: Current Medications Acetaminophen (Tylenol 325mg Tab) 650 mg PO Q4H PRN PRN Reason: Pain, Mild (1-3) Last Admin: 02/22/17 23:06 Dose: 650 mg Apixaban (Eliquis) 2.5 mg PO BID [facility] PRN Reason: Protocol Last Admin: 02/23/17 09:58 Dose: 2.5 mg Atorvastatin Calcium (Lipitor) 40 mg PO DIN [facility] Last Admin: 02/22/17 18:25 Dose: 40 mg Diltiazem HCl (Cardizem) 60 mg PO TID [facility] Last Admin: 02/23/17 09:57 Dose: 60 mg Furosemide (Lasix) 40 mg IVP DAILY [facility] Last Admin: 02/23/17 09:57 Dose: 40 mg diltiaZEM IVPB 100mg in NS (Cardizem 100mg In Ns) 100 mls @ 5 mls/hr IV .Q20H PRN; Protocol; 5 MG/HR PRN Reason: TITRATE PER MD ORDER Last Admin: 02/23/17 06:08 Dose: 5 mg/hr, 5 mls/hr Doxycycline Hyclate 100 mg/ (Sodium Chloride) 100 mls @ 100 mls/hr IVPB Q12 [facility] PRN Reason: Protocol Last Admin: 02/23/17 09:59 Dose: 100 mls/hr Cefepime HCl (Maxipime 1gm) 1 gm in 100 mls @ 100 mls/hr IVPB Q8 [facility] PRN Reason: Protocol Stop: 03/02/17 14:01 Last Admin: 02/23/17 05:37 Dose: 100 mls/hr Metoprolol Tartrate (Lopressor) 25 mg PO BID [facility] Last Admin: 02/23/17 09:58 Dose: 25 mg - Labs Labs: 02/23/17 06:00 02/23/17 06:00 PT 12.8 Seconds (9.9-11.8) H 02/21/17 11:40 INR 1.19 (0.93-1.08) H 02/21/17 11:40 APTT 30.3 Seconds (23.7-30.8) 02/21/17 11:40 - Constitutional Appears: No Acute Distress, Chronically Ill - Head Exam Head Exam: NORMOCEPHALIC - Eye Exam Eye Exam: Normal appearance, PERRL - ENT Exam ENT Exam: Mucous Membranes Moist, Normal Oropharynx - Neck Exam Neck Exam: Normal Inspection - Respiratory Exam Respiratory Exam: Decreased Breath Sounds, NORMAL BREATHING PATTERN - Cardiovascular Exam Cardiovascular Exam: REGULAR RHYTHM, +S1 - GI/Abdominal Exam GI & Abdominal Exam: Distended, Soft, Normal Bowel Sounds - Extremities Exam Additional comments: 2+ bilateral lower extremity edema - Back Exam Back Exam: NORMAL INSPECTION - Neurological Exam Neurological Exam: Alert, Oriented x3 - Skin Skin Exam: Dry, Pallor Assessment and Plan - Assessment and Plan (Free Text) Assessment: 82 year old male with history of metastatic colon cancer who was admitted with atrial fibrillation with RVR, ascites, CAP. Patient s brother and sister in law at bedside. Family jennings of patients diagnosis and poor prognosis. I spoke with patient about his disease progression and poor prognosis. Option for hospice care introduced. Hospice services explained in detail to patient/family. Questions answered. Patient states that he wants to go home and prefers not to come back to hospital in the future. Family is very supportive of patient needs. All are agreeable to meeting with marketing liaison Patient/family met with [facility] marketing liaison. All have agreed to hospice care.Patient wants to go home. He does not want to go to rehab. Time spent in advance care planning discussion 30 minutes Plan: Hospice referral. Home with hospice 02/24/17. Dr Constantino's office notified Advance care planning
--- NOTE | 2017-02-23 11:06 | CP.PCM.PN ---
Subjective - Date & Time of Evaluation Date of Evaluation: 02/23/17 Time of Evaluation: 09:55 - Subjective Subjective: Comfortable in bed, not in distress, afebrile, no fevers overnight, had paracentesis done yesterday, breathing better, less cough. Objective - Vital Signs/Intake and Output Vital Signs (last 24 hours): Temp Pulse Resp BP Pulse Ox 97.9 F 76 20 120/69 93 L 02/23/17 07:52 02/23/17 07:52 02/23/17 07:52 02/23/17 07:52 02/23/17 07:52 Intake and Output: 02/23/17 02/23/17 06:59 18:59 Intake Total 1540 Output Total 700 Balance 840 - Medications Medications: Current Medications Acetaminophen (Tylenol 325mg Tab) 650 mg PO Q4H PRN PRN Reason: Pain, Mild (1-3) Last Admin: 02/22/17 23:06 Dose: 650 mg Apixaban (Eliquis) 2.5 mg PO BID [facility] PRN Reason: Protocol Last Admin: 02/22/17 18:24 Dose: 2.5 mg Atorvastatin Calcium (Lipitor) 40 mg PO DIN [facility] Last Admin: 02/22/17 18:25 Dose: 40 mg Diltiazem HCl (Cardizem) 60 mg PO TID [facility] Last Admin: 02/22/17 18:25 Dose: 60 mg Furosemide (Lasix) 40 mg IVP DAILY [facility] Last Admin: 02/22/17 10:03 Dose: 40 mg diltiaZEM IVPB 100mg in NS (Cardizem 100mg In Ns) 100 mls @ 5 mls/hr IV .Q20H PRN; Protocol; 5 MG/HR PRN Reason: TITRATE PER MD ORDER Last Admin: 02/23/17 06:08 Dose: 5 mg/hr, 5 mls/hr Doxycycline Hyclate 100 mg/ (Sodium Chloride) 100 mls @ 100 mls/hr IVPB Q12 [facility] PRN Reason: Protocol Last Admin: 02/22/17 21:14 Dose: 100 mls/hr Cefepime HCl (Maxipime 1gm) 1 gm in 100 mls @ 100 mls/hr IVPB Q8 [facility] PRN Reason: Protocol Stop: 03/02/17 14:01 Last Admin: 02/23/17 05:37 Dose: 100 mls/hr Metoprolol Tartrate (Lopressor) 25 mg PO BID [facility] Last Admin: 02/22/17 18:26 Dose: 25 mg - Labs Labs: 02/23/17 06:00 02/23/17 06:00 PT 12.8 Seconds (9.9-11.8) H 02/21/17 11:40 INR 1.19 (0.93-1.08) H 02/21/17 11:40 APTT 30.3 Seconds (23.7-30.8) 02/21/17 11:40 - Constitutional Appears: Non-toxic, No Acute Distress - Head Exam Head Exam: NORMAL INSPECTION - ENT Exam ENT Exam: Mucous Membranes Moist - Neck Exam Neck Exam: absent: Lymphadenopathy, Meningismus - Respiratory Exam Respiratory Exam: Decreased Breath Sounds - Cardiovascular Exam Cardiovascular Exam: +S1, +S2 - GI/Abdominal Exam GI & Abdominal Exam: Soft. absent: Tenderness Assessment and Plan - Assessment and Plan (Free Text) Plan: Assessment sepsis secondary to right lower lobe healthcare-associated pneumonia, right upper lung mass ascites, transudative, S/P paracentesis Left lower lobe pulmonary embolism history of port site infection with methicillin-sensitive Staph aureus S/P removal of the port HTN stage 4 colon cancer with mets to the liver history of FTA-ABS positive with RPR 1:2 Plan continue doxycycline and Cefepime (day 2), pending final blood cx; reviewes CXR which shows the right lower lobe infiltrate; reviewed ascitic fluid analysis which showed 319 cells but only 17% neutrophils will continue to follow clinically
--- NOTE | 2017-02-23 12:47 | CP.PCM.PN ---
<Sarah Archer - Last Filed: 02/23/17 12:43> Subjective - Date & Time of Evaluation Date of Evaluation: 02/23/17 Time of Evaluation: 12:47 - Subjective Subjective: PGY-[address] Levin Pt is comfortable in bed with brother and [id number]. No acute complaint Objective - Vital Signs/Intake and Output Vital Signs (last 24 hours): Temp Pulse Resp BP Pulse Ox 98.4 F 87 20 123/81 93 L 02/23/17 12:00 02/23/17 12:00 02/23/17 12:00 02/23/17 12:00 02/23/17 07:52 Intake and Output: 02/23/17 02/23/17 06:59 18:59 Intake Total 1540 Output Total 700 Balance 840 - Medications Medications: Current Medications Acetaminophen (Tylenol 325mg Tab) 650 mg PO Q4H PRN PRN Reason: Pain, Mild (1-3) Last Admin: 02/22/17 23:06 Dose: 650 mg Apixaban (Eliquis) 2.5 mg PO BID [facility] PRN Reason: Protocol Last Admin: 02/23/17 09:58 Dose: 2.5 mg Atorvastatin Calcium (Lipitor) 40 mg PO DIN [facility] Last Admin: 02/22/17 18:25 Dose: 40 mg Digoxin (Lanoxin) 0.125 mg PO 1400 [facility] Diltiazem HCl (Cardizem) 60 mg PO TID [facility] Last Admin: 02/23/17 09:57 Dose: 60 mg Furosemide (Lasix) 40 mg IVP DAILY [facility] Last Admin: 02/23/17 09:57 Dose: 40 mg diltiaZEM IVPB 100mg in NS (Cardizem 100mg In Ns) 100 mls @ 5 mls/hr IV .Q20H PRN; Protocol; 5 MG/HR PRN Reason: TITRATE PER MD ORDER Last Admin: 02/23/17 06:08 Dose: 5 mg/hr, 5 mls/hr Doxycycline Hyclate 100 mg/ (Sodium Chloride) 100 mls @ 100 mls/hr IVPB Q12 [facility] PRN Reason: Protocol Last Admin: 02/23/17 09:59 Dose: 100 mls/hr Cefepime HCl (Maxipime 1gm) 1 gm in 100 mls @ 100 mls/hr IVPB Q8 [facility] PRN Reason: Protocol Stop: 03/02/17 14:01 Last Admin: 02/23/17 05:37 Dose: 100 mls/hr Metoprolol Tartrate (Lopressor) 25 mg PO BID [facility] Last Admin: 02/23/17 09:58 Dose: 25 mg - Labs Labs: 02/23/17 06:00 02/23/17 06:00 PT 12.8 Seconds (9.9-11.8) H 02/21/17 11:40 INR 1.19 (0.93-1.08) H 02/21/17 11:40 APTT 30.3 Seconds (23.7-30.8) 02/21/17 11:40 - Constitutional Appears: No Acute Distress - Head Exam Head Exam: ATRAUMATIC, NORMAL INSPECTION, NORMOCEPHALIC - Eye Exam Eye Exam: EOMI, Normal appearance, PERRL - ENT Exam ENT Exam: Mucous Membranes Moist - Respiratory Exam Respiratory Exam: Decreased Breath Sounds - Cardiovascular Exam Cardiovascular Exam: REGULAR RHYTHM, +S1, +S2 - GI/Abdominal Exam GI & Abdominal Exam: Soft, Hypoactive Bowel Sounds. absent: Rigid - Extremities Exam Extremities Exam: Pedal Edema (2+ pitting) - Neurological Exam Neurological Exam: Alert, Awake - Skin Skin Exam: Dry, Warm Assessment and Plan - Assessment and Plan (Free Text) Plan: 82 M with colon ca stage IV w mets to liver/lung s/p L hemicolectomy s/p oxaloplatinand Hx prostate CA s/p radiation prostate seeds admitted progressive dyspnea, rapid afib, and now w/ RLL pneumonia, with increase abdominal girth, increase pleural effusion, and worsening PET scan findings of 02/16/17, w CEA rising. Dyspnea and generalized body edema likely from decrease venous return due to Ascites. 7.8L peritoneal fluid drained s/p paracentesis. Plan: Pt is now DNR/DNI. Conservative medical management. Not yet hospice or comfort care. Once pt discharges home, pt will become hospice. Pneumonia, RLL infiltrate Sepsis, leukocytosis (18), procalc 3.79 - cefepime and doxycycline - Pending ID to input on PO med to go home with pleural effusion - improveing s/p paracentesis Ascites, last paracentesis 11 month ago - LDH 1358 stage 4 colon ca; prostate ca - L colostomy - LDH 1358 - last chemo 2 weeks ago A-fib on diliazem gtt and eliquis 2.5 BID - BNP 5130 - HOLD home digioxin, atenolol Nomocytic anemia, H/H 11.9/37 Transaminitis Likely liver mets - AST 200, ALT 53 - Alk phos 969 - On lipitor 40 Disposition - Consider palliative care consult Consult - ID = [email or web address] - Rapid A-fib = Son - Heme/Onc = Ollie - IR = Verduzco Will s/r/d/ w Dr. Levin <Janet Levin P - Last Filed: 02/25/17 00:49> Objective - Vital Signs/Intake and Output Vital Signs (last 24 hours): Temp Pulse Resp BP Pulse Ox 97.5 F L 125 H 18 137/78 100 02/24/17 06:00 02/24/17 09:33 02/24/17 09:00 02/24/17 09:33 02/24/17 09:00 Intake and Output: 02/24/17 02/25/17 18:59 06:59 Intake Total 300 Output Total 401 Balance -101 - Labs Labs: 02/24/17 07:04 02/24/17 07:04 PT 12.8 Seconds (9.9-11.8) H 02/21/17 11:40 INR 1.19 (0.93-1.08) H 02/21/17 11:40 APTT 30.3 Seconds (23.7-30.8) 02/21/17 11:40 Attending/Attestation - Attestation I have personally seen and examined this patient.: Yes I have fully participated in the care of the patient.: Yes I have reviewed all pertinent clinical information, including history, physical exam and plan: Yes
[2017-02-23 13:51] VITALS: PULSE 102
[2017-02-23] MEDS ORDERED: Digoxin 125 mcg (0.125 mg) Tab PO SCH (14:00)
--- NOTE | 2017-02-23 21:03 | PN ---
DATE: 02/23/2017 SUBJECTIVE: The patient is at room 270, bed 1. He had amniocentesis removing 8 liters of fluid from his abdomen yesterday by Dr. Hugh Son. He stays he feels much better today. PHYSICAL EXAMINATION: VITAL SIGNS: Temperature 97.9, pulse rate of 76, blood pressure 120/69, respiratory rate of 20 with an O2 saturation of 93% on room air. HEENT: PERRLA, EOMI. NECK: Supple with full range of motion, no bruits are appreciated. LUNGS: Clear to auscultation and percussion. HEART: Irregular with no murmur, rubs, or gallops. ABDOMEN: Soft, nontender. There is no organomegaly. Bowel sounds are normoactive. EXTREMITIES: Show no deformities. NEUROLOGICAL: There are no focal motor deficits. LABS: This morning; WBCs are down at 16.4, hemoglobin and hematocrit 11.0 and 34.6. There is a shifted left. Chemistry shows a sodium of 131, carbon dioxide is 17, BUN and creatinine of 41 and 1.5, calcium 8.2, total bilirubin of 2.4, direct of 2.0, AST of 180, ALT of 49, alk phos of 813. PLAN: We will discuss possible hospice care with family who is amenable to it but the patient is not as of yet. We will continue intravenous antibiotics. DIAGNOSES: At this time; 1. Pneumonia. 2. Pleural effusion. 3. Atrial fibrillation. 4. Metastatic colon cancer. 5. Malignant ascites. Gerald Franklin MD
--- NOTE | 2017-02-23 21:12 | PN ---
DATE: 02/23/2017 SUBJECTIVE: Patient's breathing is much improved. PHYSICAL EXAMINATION: VITAL SIGNS: Blood pressure 125/76, heart rate is atrial fibrillation in the 112. NECK: Negative JVD. LUNGS: Decreased breath sounds in the bases. HEART: S1, S2. EXTREMITIES: 1-2+ edema. LABORATORY DATA: White count is coming down to 16.4, hemoglobin is 11. Chemistries: BUN and creatinine is 41 and 1.5. IMPRESSION: 1. Status post paracentesis. 2. Pneumonia. 3. Stage 4 carcinoma. 4. Pedal edema. 5. Atrial fibrillation. 6. Dyspnea. PLAN: Given these findings, we will add digoxin to the regimen to help control the heart rate. Hugh Son MD
--- NOTE | 2017-02-24 01:40 | CP.PCM.PN ---
Subjective - Date & Time of Evaluation Date of Evaluation: 02/24/17 Time of Evaluation: 01:39 - Subjective Subjective: S:Sleeping pill was requested like night before. Medical record was reviewed. O: Last Vital Signs 3 Temp 97.8 F 02/24/17 00:01 Pulse 97 H 02/24/17 02:00 Resp 19 02/24/17 00:01 BP 123/77 02/24/17 00:01 Pulse Ox 94 L 02/24/17 00:01 Stable. Not in distress. LUNGS:Normal breathing pattern. A:Adjustment insomnia P:Ambien 10 mg PO x 1. Objective - Vital Signs/Intake and Output Vital Signs (last 24 hours): Temp Pulse Resp BP Pulse Ox 97.8 F 82 19 123/77 94 L 02/24/17 00:01 02/24/17 00:01 02/24/17 00:01 02/24/17 00:01 02/24/17 00:01 Intake and Output: 02/23/17 02/24/17 18:59 06:59 Intake Total 600 0 Output Total 600 Balance 0 0 - Medications Medications: Current Medications Acetaminophen (Tylenol 325mg Tab) 650 mg PO Q4H PRN PRN Reason: Pain, Mild (1-3) Last Admin: 02/22/17 23:06 Dose: 650 mg Apixaban (Eliquis) 2.5 mg PO BID [facility] PRN Reason: Protocol Last Admin: 02/23/17 17:29 Dose: 2.5 mg Atorvastatin Calcium (Lipitor) 40 mg PO DIN [facility] Last Admin: 02/23/17 17:29 Dose: 40 mg Digoxin (Lanoxin) 0.125 mg PO 1400 [facility] Last Admin: 02/23/17 13:49 Dose: 0.125 mg Diltiazem HCl (Cardizem) 60 mg PO TID [facility] Last Admin: 02/23/17 17:28 Dose: 60 mg Furosemide (Lasix) 40 mg IVP DAILY [facility] Last Admin: 02/23/17 09:57 Dose: 40 mg diltiaZEM IVPB 100mg in NS (Cardizem 100mg In Ns) 100 mls @ 5 mls/hr IV .Q20H PRN; Protocol; 5 MG/HR PRN Reason: TITRATE PER MD ORDER Last Titration: 02/24/17 01:20 Dose: 5 mg/hr, 5 mls/hr Doxycycline Hyclate 100 mg/ (Sodium Chloride) 100 mls @ 100 mls/hr IVPB Q12 [facility] PRN Reason: Protocol Last Admin: 02/23/17 23:12 Dose: 100 mls/hr Cefepime HCl (Maxipime 1gm) 1 gm in 100 mls @ 100 mls/hr IVPB Q8 [facility] PRN Reason: Protocol Stop: 03/02/17 14:01 Last Admin: 02/23/17 23:14 Dose: 100 mls/hr Metoprolol Tartrate (Lopressor) 25 mg PO BID [facility] Last Admin: 02/23/17 17:29 Dose: 25 mg - Labs Labs: 02/23/17 06:00 02/23/17 06:00 PT 12.8 Seconds (9.9-11.8) H 02/21/17 11:40 INR 1.19 (0.93-1.08) H 02/21/17 11:40 APTT 30.3 Seconds (23.7-30.8) 02/21/17 11:40
[2017-02-24] MEDS: Cefepime 1gm in NS 100ml 1 GM/100 ML BAG IVPB SCH (05:05)
[2017-02-24 07:11] LABS: BASO # 0.03 K/mm3 (0.0-2.0); BASO % 0.2 % (0.0-3.0); EOS # 0.1 (0.0-0.7); EOS % 0.4 % (1.5-5.0); GRAN # 13.52 (1.4-6.5); GRAN % 71.7 % (50.0-68.0); HEMOGLOBIN 11.8 gm/dL (14.0-18.0); LYMPH # 2.9 (1.2-3.4); LYMPH % 15.5 % (22.0-35.0); MEAN CELL VOLUME 79.9 fL (80.0-105.0); MEAN CORPUSCULAR HGB CONC 32.6 g/dl (31.0-37.0); MEAN PLATELET VOLUME 9.4 fl (7.0-11.0); MONO # 2.3 (0.1-0.6); MONO % 12.2 % (1.0-6.0); PLATELET COUNT 273 10^3/uL (120.0-450.0); RBC 4.53 10^6/uL (3.5-6.1); RED CELL DISTRIBUTION WIDTH 19.9 % (11.5-14.5); WHITE BLOOD COUNT 18.9 10^3/ul (4.5-11.0)
[2017-02-24 07:25] LABS: ALB/GLOB RATIO 0.9 (1.1-1.8); ALBUMIN 2.3 g/dL (3.0-4.8); ALT/SGPT 45 U/L (7-56); AST/SGOT 187 U/L (15-59); BLOOD UREA NITROGEN 39 mg/dL (7-21); CALCIUM 8.2 mg/dL (8.4-10.5); GFR AFRICAN-AMERICAN > 60; GFR NON-AFRICAN AMERICAN 53
[2017-02-24 11:56] VITALS: BP 137/78; PULSE 125
[2017-02-24 11:57] VITALS: TEMP 97.5
[2017-02-24 12:21] VITALS: RESP 18; O2SAT 100
--- NOTE | 2017-02-27 06:53 | DS ---
HISTORY OF PRESENT ILLNESS: The patient was admitted on 02/21/2017, with what appeared to be pneumonia as well as atrial fibrillation with a rapid ventricular response. The patient also has metastatic carcinoma of the colon. There were mets to the liver. The patient also had a malignant ascites, 8 L were taken out. The patient is now being seen on 02/24/2017 in room 270, bed #1. He and his family have agreed to hospice care, and he will be discharged today on the 02/24/2017 to hospice care at home. He will continue all his previous medications. PHYSICAL EXAMINATION: VITAL SIGNS: Afebrile, pulse rate of 125, blood pressure of 137/78 with a respiratory rate of 18 and a 100% O2 saturation on a nasal cannula. HEENT: KUNAL, EOMI. No icterus appreciable. NECK: The is supple with a full range of motion. No bruits or adenopathy. LUNGS: Clear with some scattered rhonchi. HEART: Irregularly irregular. ABDOMEN: Soft, it is nontender. Ascites is no longer noted. EXTREMITIES: Show trace edema. NEUROLOGICAL: There are no focal motor deficits. LABORATORY VALUES: WBC of 18.9, hemoglobin and hematocrit of 11.8 and 36.2. There is a left shift. Chemistry shows a sodium of 130, BUN and creatinine of 39 and 1.3, and random glucose is 67. Total bilirubin of 2.7, AST of 187, and ALT of 45. IMPRESSION: At this time: 1. Metastatic carcinoma of the colon. 2. Malignant ascites. The pathology report is still pending. 3. Atrial fibrillation with rapid ventricular response. DISPOSITION: The patient will be discharged today to hospice care. Gerald Franklin MD
== END 2017-02-24 11:35 | disposition hospice, home (50) | DRG 871 ==
LOC: ED 11:35 → ERH 13:36 → 2RSO 15:25
PROVIDERS: ADMIT Student in an Organized Health Care Education/Training Program; ATTEND Student in an Organized Health Care Education/Training Program
PROC: 0W9G3ZX Drainage of Peritoneal Cavity, Percutaneous Approach, Diagnostic (ICD-10-PCS; principal; 2017-02-22 16:00)
DX: A41.9 Sepsis, unspecified organism (principal); J15.9 Unspecified bacterial pneumonia; N17.9 Acute kidney failure, unspecified; R18.0 Malignant ascites; C78.00 Secondary malignant neoplasm of unspecified lung; C78.7 Secondary malignant neoplasm of liver and intrahepatic bile duct; C18.9 Malignant neoplasm of colon, unspecified; I11.0 Hypertensive heart disease with heart failure; I50.9 Heart failure, unspecified; D64.9 Anemia, unspecified; R65.20 Severe sepsis without septic shock; I48.2 Chronic atrial fibrillation; Z51.5 Encounter for palliative care; Z66 Do not resuscitate; I73.9 Peripheral vascular disease, unspecified; E78.5 Hyperlipidemia, unspecified; Y95 Nosocomial condition; F51.02 Adjustment insomnia; I45.10 Unspecified right bundle-branch block; R10.13 Epigastric pain; E66.9 Obesity, unspecified; Z68.32 Body mass index [BMI] 32.0-32.9, adult; Z93.3 Colostomy status; Z85.46 Personal history of malignant neoplasm of prostate; Z90.49 Acquired absence of other specified parts of digestive tract; Z87.891 Personal history of nicotine dependence